=== PATIENT | male | born 1945 | race Caucasian/White ===

== ENCOUNTER 2016-12-02 09:30 | Inpatient (IN) | payer OTHER, MEDICARE ==
[2016-12-02] MEDS ORDERED: ACETAMINOPHEN TAB 500 MG TAB PO STA (09:42)
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
[2016-12-02 10:07] LABS: CH 29.6; CHCM 33.4; HCT 51.1 % (39.0-53.0); HDW 2.73; HGB 16.7 gm/dL (13.0-17.5); Immature Gran Flag Marked; MCH 29.2 pg (25.0-35.0); MCHC 32.8 g/dL (31.0-37.0); MCV 89.1 fL (80.0-100.0); Mean Platelet Volume 8.8; RBC 5.73 m/uL (4.30-5.90); RDW 14.2 % (11.5-15.5); WBC 8.9 k/uL (3.8-10.6)
[2016-12-02 10:19] LABS: Amylase 52 U/L (30-110); Anion Gap 13 mmol/L; Calcium 9.2 mg/dL (8.4-10.2); Carbon Dioxide 24 mmol/L (22-30); Chloride 106 mmol/L (98-107); Creatine Kinase 143 U/L (55-170); Glucose 139 mg/dL (74-99); Non-African American GFR(MDRD) >60 (>60 ml/min/1.73 sqM); Sodium 143 mmol/L (137-145); Total Bilirubin 0.9 mg/dL (0.2-1.3); Total Protein 7.7 g/dL (6.3-8.2)
[2016-12-02 10:24] LABS: ALT 25 U/L (21-72); AST 32 U/L (17-59); Alkaline Phosphatase 102 U/L (38-126); Blood Urea Nitrogen 14 mg/dL (9-20); INR 1.1 (<1.1); Magnesium 1.8 mg/dL (1.6-2.3); Partial Thromboplastin Time 22.7 sec (22.0-30.0); Potassium 4.6 mmol/L (3.5-5.1)
--- NOTE | 2016-12-02 10:25 | XR ---
EXAMINATION TYPE: XR chest 2V DATE OF EXAM: 12/02/2016 10:21 AM COMPARISON: 08/01/2016 TECHNIQUE: PA and lateral views submitted. HISTORY: Pain and cough FINDINGS: No pneumothorax or pleural effusion. Arthropathy of the shoulder. Heart size stable. There is limited inspiration. Findings suggest hiatal hernia. Degenerative change of the spine noted. Subsegmental ba silar infiltrate. IMPRESSION: 1. Basilar infiltrate or atelectasis correlate clinically.
[2016-12-02 10:42] LABS: Add Differential Manual Differential
[2016-12-02 10:45] LABS: Appearance,Urine Clear (Clear); Bilirubin,Urine Negative (Negative); Glucose,Urine (UA) Negative (Negative); Ketones,Urine Negative (Negative); Leukocyte Esterase,Urine Negative (Negative); Nitrite,Urine Negative (Negative); PH, Urine 7.5 (5.0-8.0); Protein,Urine Negative (Negative); UA Billing (MACRO vs. MICRO) CHEM; Urobilinogen,Urine <2.0 mg/dL (<2.0)
[2016-12-02 10:47] LABS: Nucleated Red Blood Cells 0 /100 WBC (0-0); Total Cells Counted 200
[2016-12-02 10:48] LABS: Manual Review Performed
[2016-12-02] MEDS ORDERED: IBUPROFEN 800 MG TAB PO STA (10:50)
[2016-12-02] MEDS ORDERED: SODIUM CHLORIDE 0.9% 1,000 ML IV ONE (11:08)
[2016-12-02] MEDS ORDERED: PNEUMONIA PROTOCOL UTILIZED 1 EACH MISC PO PRN (11:10)
[2016-12-02] MEDS ORDERED: LEVOFLOXACIN 750MG-D5W PMX 750 MG in DEXTROSE/WATER 1 150ML.BAG IVPB STA (11:10)
[2016-12-02] MEDS ORDERED: IPRATROPIUM-ALBUTEROL 3 ML NEB INHALATION PRN (11:10)
[2016-12-02] MEDS ORDERED: ACETAMINOPHEN TAB 500 MG TAB PO PRN (11:11)
[2016-12-02] MEDS ORDERED: HYDROcodone/APAP 5-325MG 1 EACH TAB PO PRN (14:05)
[2016-12-02] MEDS ORDERED: TEMAZEPAM 15 MG CAP PO PRN (14:05)
[2016-12-02] MEDS ORDERED: ALPRAZolam 0.25 MG TAB PO PRN (14:05)
[2016-12-02] MEDS ORDERED: NITROGLYCERIN SL TABS 0.4 MG TAB SUBLINGUAL PRN (14:06)
[2016-12-02] MEDS ORDERED: HYDROCORTISONE 1% CREAM 30 GM TUBE TOPICAL PRN (14:06)
[2016-12-02] MEDS ORDERED: ACYCLOVIR 200 MG CAP PO PRN (14:06)
[2016-12-02] MEDS ORDERED: NON-FORMULARY DRUG (Omeprazole [Omeprazole] 20 MG) PO SCH (14:15)
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
[2016-12-02] MEDS: AZITHROMYCIN 500 MG in SODIUM CHLORIDE 0.9% 250 ML IVPB SCH (15:27)
[2016-12-02] MEDS: methylPREDNISolone SOD SUCCI 40 MG/ML 1 ML VIAL IV SCH (15:27)
[2016-12-02] MEDS: POLYETHYLENE GLYCOL 3350 17 GM POWD.PACK PO SCH (15:28)
[2016-12-02] MEDS: FINASTERIDE 5 MG TAB PO SCH (15:28)
[2016-12-02] MEDS: CITALOPRAM HYDROBROMIDE 10 MG TAB PO SCH (15:28)
[2016-12-02] MEDS: CLOPIDOGREL 75 MG TAB PO SCH (15:28)
[2016-12-02] MEDS: LISINOPRIL-HCTZ 10-12.5 MG 1 EACH TAB PO SCH (15:28)
[2016-12-02] MEDS: IPRATROPIUM-ALBUTEROL 3 ML NEB INHALATION SCH ×2 (15:49→20:31)
[2016-12-02 16:55] VITALS: BMI 58.6
[2016-12-02 17:37] LABS: Glucose,Whole Blood 193 mg/dL (75-99)
[2016-12-02] MEDS: INSULIN LISPRO (humaLOG) 300 UNIT/3 ML VIAL SQ SCH ×2 (17:37→21:07)
[2016-12-02 20:11] LABS: Glucose,Whole Blood 276 mg/dL (75-99)
[2016-12-02] MEDS: HEPARIN SODIUM,PORCINE 5,000 UNIT/ML 1 ML VIAL SQ SCH (21:07)
[2016-12-02] MEDS: QUEtiapine 50 MG TAB PO SCH (21:09)
[2016-12-02] MEDS: traZODone HCL 50 MG TAB PO SCH (21:09)
[2016-12-02] MEDS: METOPROLOL TARTRATE 12.5 MG TAB PO SCH (21:09)
[2016-12-03] MEDS: SODIUM CHLORIDE 0.9% 1,000 ML IV SCH ×2 (05:30→05:51)
[2016-12-03] MEDS: LEVOTHYROXINE 25 MCG TAB PO SCH (06:13)
--- NOTE | 2016-12-03 06:48 | XR ---
EXAM: XR Chest, 2 Views. CLINICAL HISTORY: Reason: pneumonia TECHNIQUE: Frontal and lateral views of the chest. COMPARISON: 12/02/16 radiographs. FINDINGS: Lungs: Increasing bibasilar opacities, left greater than right, may be worsening atelectasis or infiltrates. Pleural spaces: Unremarkable. No pneumothorax. Heart: The heart size is stable. Mediastinum: Stable including slight rounded density in the retrocardiac region for which a small hiatal hernia is not excluded. Bones: Stable including multilevel degenerative changes. No acute fracture. IMPRESSION: Increasing bibasilar atelectasis or infiltrates. The balance of the exam is otherwise unchanged, as above.
[2016-12-03 07:25] LABS: Basophils % (A) 0 %; CH 29.7; CHCM 33.1; Eosinophils % (A) 0 %; HCT 48.2 % (39.0-53.0); HDW 2.64; HGB 15.3 gm/dL (13.0-17.5); Luc # (Auto) 0.11; Luc % (Auto) 1; Lymphocytes # (A) 0.8 k/uL (1.0-4.8); Lymphocytes % (A) 6 %; MCH 28.7 pg (25.0-35.0); MCHC 31.8 g/dL (31.0-37.0); MCV 90.1 fL (80.0-100.0); Mean Platelet Volume 7.8; Monocytes # (A) 0.5 k/uL (0-1.0); Monocytes % (A) 4 %; Neutrophils # (A) 11.8 k/uL (1.3-7.7); Neutrophils % (A) 89 %; RBC 5.35 m/uL (4.30-5.90); RDW 14.3 % (11.5-15.5); WBC 13.3 k/uL (3.8-10.6); WBC (Perox) 13.26
[2016-12-03 07:26] LABS: Glucose,Whole Blood 151 mg/dL (75-99)
[2016-12-03] MEDS: INSULIN LISPRO (humaLOG) 300 UNIT/3 ML VIAL SQ SCH ×4 (07:33→21:18)
[2016-12-03 07:47] LABS: Anion Gap 11 mmol/L; Blood Urea Nitrogen 21 mg/dL (9-20); Calcium 9.3 mg/dL (8.4-10.2); Carbon Dioxide 22 mmol/L (22-30); Chloride 107 mmol/L (98-107); Glucose 180 mg/dL (74-99); Non-African American GFR(MDRD) >60 (>60 ml/min/1.73 sqM); Potassium 4.1 mmol/L (3.5-5.1); Sodium 140 mmol/L (137-145)
[2016-12-03] MEDS: IPRATROPIUM-ALBUTEROL 3 ML NEB INHALATION SCH ×4 (07:55→20:08)
[2016-12-03] MEDS: CITALOPRAM HYDROBROMIDE 10 MG TAB PO SCH (08:30)
[2016-12-03] MEDS: LISINOPRIL-HCTZ 10-12.5 MG 1 EACH TAB PO SCH (08:30)
[2016-12-03] MEDS: PANTOPRAZOLE 40 MG TABLET PO SCH (08:30)
[2016-12-03] MEDS: METOPROLOL TARTRATE 12.5 MG TAB PO SCH ×2 (08:30→20:07)
[2016-12-03] MEDS: ASPIRIN 325 MG TAB PO SCH (08:30)
[2016-12-03] MEDS: FINASTERIDE 5 MG TAB PO SCH (08:30)
[2016-12-03] MEDS: CLOPIDOGREL 75 MG TAB PO SCH (08:30)
[2016-12-03] MEDS: methylPREDNISolone SOD SUCCI 40 MG/ML 1 ML VIAL IV SCH ×2 (08:31)
[2016-12-03] MEDS: POLYETHYLENE GLYCOL 3350 17 GM POWD.PACK PO SCH (08:31)
[2016-12-03] MEDS: HEPARIN SODIUM,PORCINE 5,000 UNIT/ML 1 ML VIAL SQ SCH ×2 (08:31→20:08)
[2016-12-03] MEDS ORDERED: NON-FORMULARY DRUG (Rosuvastatin 10 MG) PO SCH (09:00)
[2016-12-03] MEDS: AZITHROMYCIN 500 MG in SODIUM CHLORIDE 0.9% 250 ML IVPB SCH (10:08)
[2016-12-03 10:43] LABS: Hemoglobin A1C 6.4 % (4.2-6.1)
[2016-12-03 11:23] LABS: Glucose,Whole Blood 351 mg/dL (75-99)
[2016-12-03] MEDS ORDERED: LEVOFLOXACIN 750MG-D5W PMX 750 MG in DEXTROSE/WATER 1 150ML.BAG IVPB SCH (12:00)
[2016-12-03] MEDS: CYANOCOBALAMIN 500 MCG TAB PO SCH (12:19)
[2016-12-03 12:37] LABS: Glucose,Whole Blood 276 mg/dL (75-99)
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
--- NOTE | 2016-12-03 16:42 | PN ---
DATE OF SERVICE: 12/03/2016 This 71-year-old gentleman admitted with cough and sputum, was thought to have bilateral pneumonia, possibly gram-negative. The chest x-ray still shows lesions bilaterally. Dr. Swenson is following the patient closely. The patient is on IV antibiotics and as well as bronchodilators, also. PAST MEDICA HISTORY: Reviewed. REVIEW OF SYSTEMS: CARDIOVASCULAR: No angina, palpitations. RESPIRATORY: As mentioned earlier. GI: No nausea. : No dysuria. NERVOUS SYSTEM: No numbness or weakness. ALLERGY/IMMUNOLOGY: No hayfever, no asthma. MUSCULOSKELETAL: As mentioned earlier. Current medications are noted: 1. Tylenol 1000 mg q.6 p.r.n. 2. [place] 5 mg q.6. 3. Zovirax 200 mg p.o. 5 times. 4. DuoNeb q.i.d. and p.r.n. 5. Xanax 0.25 t.i.d. 6. Aspirin 325 mg p.o. daily. 7. Zithromax 500 mg p.o. daily. 8. Rocephin 1 gm daily. 9. Celexa 10 mg p.o. daily. 10. Plavix 75 mg p.o. daily. 11. Vitamin B12 two hundred fifty mcg p.o. daily. 12. Proscar 5 mg p.o. daily. 13. Lisinopril-hydrochlorothiazide 1 tablet p.o. daily. 14. Heparin 5000 subQ b.i.d. 15. Hydrocortisone 1% daily p.r.n. 16. NovoLog scale. 17. Synthroid 25 mcg p.o. daily. 18. Lopressor 12.5 mg p.o. b.i.d. 19. Nitrostat 0.4 sublingual p.r.n. 20. Crestor 10 mg p.o. daily. 21. Protonix 40 mg p.o. daily. 22. MiraLax 17 gm p.o. daily. 23. Seroquel 150 mg q.h.s. 24. Desyrel 50 mg q.h.s. PHYSICAL EXAM: Patient is alert and oriented x3. Pulse is 76, blood pressure 120/68, respiratory rate 18, temperature 97.8, pulse ox 98% on room air. HEENT: Conjunctivae normal, oral mucosal moist. Neck is no jugular venous distension, no thyroid enlargement, no lymph node no enlargement. CARDIOVASCULAR: S1, S2, muffled. RESPIRATORY: Breast sounds diminished at the bases, a few scattered rhonchi, no crackles. Respiratory wheezing also present. Abdomen is soft, nontender. EXTREMITIES: Legs no edema, no well. NERVOUS SYSTEM: No focal deficits. LABS: WBC 13.3 and glucose 180 and 351. ASSESSMENT: 1. Chronic obstructive pulmonary disease, acute exacerbation, with possible bibasilar pneumonia, possibly gram-negative with possible sepsis, present on admission. 2. Rule out smoke inhalation. 3. Increased random blood sugar and diabetes mellitus type 2, possibly steroid induced. 4. History of coronary artery disease. 5. History of gastroesophageal reflux disease. 6. Hypertension. 7. Hyperlipidemia. 8. History of myocardial infarction. 9. History of diverticulosis. 10. History of aortic aneurysm. 11. History of right clavicle fracture. 12. History of constipation. 13. History of anxiety, depression, posttraumatic stress disorder. 14. Remote history of nicotine dependence. 15. FULL CODE. RECOMMENDATION: This is a 71-year-old gentleman who presented with multiple complex medical issues, will monitor the patient closely. Continue with the current medication. Continue with the symptomatic treatment. Otherwise, at this time I would recommend continue the bronchodilators, empiric antibiotics, Rocephin and Zithromax. Dr. Swenson's input appreciated. Will also recommend to cut down the IV fluids and further recommendations to follow.
[2016-12-03 17:11] LABS: Glucose,Whole Blood 221 mg/dL (75-99)
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
[2016-12-03] MEDS ORDERED: LEVOFLOXACIN 500 MG TAB PO SCH (20:00)
[2016-12-03] MEDS: QUEtiapine 50 MG TAB PO SCH (20:08)
[2016-12-03] MEDS: traZODone HCL 50 MG TAB PO SCH (20:08)
[2016-12-03 20:15] LABS: Glucose,Whole Blood 296 mg/dL (75-99)
[2016-12-04 00:25] VITALS: RESP 16
[2016-12-04] MEDS: LEVOTHYROXINE 25 MCG TAB PO SCH (06:27)
[2016-12-04 07:27] LABS: Glucose,Whole Blood 146 mg/dL (75-99)
[2016-12-04] MEDS: HEPARIN SODIUM,PORCINE 5,000 UNIT/ML 1 ML VIAL SQ SCH (07:41)
[2016-12-04] MEDS: POLYETHYLENE GLYCOL 3350 17 GM POWD.PACK PO SCH (07:41)
[2016-12-04] MEDS: CITALOPRAM HYDROBROMIDE 10 MG TAB PO SCH (07:41)
[2016-12-04] MEDS: METOPROLOL TARTRATE 12.5 MG TAB PO SCH (07:41)
[2016-12-04] MEDS: LISINOPRIL-HCTZ 10-12.5 MG 1 EACH TAB PO SCH (07:41)
[2016-12-04] MEDS: FINASTERIDE 5 MG TAB PO SCH (07:42)
[2016-12-04] MEDS: CLOPIDOGREL 75 MG TAB PO SCH (07:42)
[2016-12-04] MEDS: ASPIRIN 325 MG TAB PO SCH (07:42)
[2016-12-04] MEDS: CYANOCOBALAMIN 500 MCG TAB PO SCH (07:42)
[2016-12-04] MEDS: PANTOPRAZOLE 40 MG TABLET PO SCH (07:42)
[2016-12-04] MEDS: INSULIN LISPRO (humaLOG) 300 UNIT/3 ML VIAL SQ SCH (07:43)
[2016-12-04 07:46] VITALS: BP 135/87; PULSE 63; TEMP 98.1
[2016-12-04] MEDS: IPRATROPIUM-ALBUTEROL 3 ML NEB INHALATION SCH ×3 (07:57→11:31)
[2016-12-04 08:10] LABS: Basophils % (A) 0 %; CH 29.7; CHCM 33.2; Eosinophils % (A) 0 %; HCT 45.5 % (39.0-53.0); HDW 2.67; HGB 14.6 gm/dL (13.0-17.5); Luc # (Auto) 0.25; Luc % (Auto) 2; Lymphocytes # (A) 1.3 k/uL (1.0-4.8); Lymphocytes % (A) 10 %; MCHC 32.2 g/dL (31.0-37.0); MCV 90.1 fL (80.0-100.0); Mean Platelet Volume 7.9; Monocytes # (A) 0.7 k/uL (0-1.0); Monocytes % (A) 6 %; Neutrophils # (A) 10.3 k/uL (1.3-7.7); Neutrophils % (A) 82 %; RBC 5.04 m/uL (4.30-5.90); RDW 14.5 % (11.5-15.5); WBC 12.6 k/uL (3.8-10.6); WBC (Perox) 13.03
[2016-12-04 08:27] LABS: Anion Gap 10 mmol/L; Blood Urea Nitrogen 21 mg/dL (9-20); Calcium 9.2 mg/dL (8.4-10.2); Carbon Dioxide 25 mmol/L (22-30); Chloride 108 mmol/L (98-107); Glucose 148 mg/dL (74-99); Non-African American GFR(MDRD) >60 (>60 ml/min/1.73 sqM); Potassium 4.2 mmol/L (3.5-5.1); Sodium 143 mmol/L (137-145)
[2016-12-04] MEDS ORDERED: predniSONE 10 MG TAB PO SCH (09:00)
[2016-12-04] MEDS ORDERED: AZITHROMYCIN 500 MG TAB PO SCH (09:00)
--- NOTE | 2016-12-04 12:06 | P.PN ---
Subjective Rich 71-year-old male patient, pleasant to presented with bilateral lower lobe pneumonia. He is a nonsmoker. No 72 chronic form of lung disease or disorder. Clinically improved. No fever. No chills. No need for oxygen therapy. He is ambulating. He is tolerating his diet without any nausea or vomiting. His follow-up chest x-ray is showing some limited infiltration of the left lung base that needs to be followed up on outpatient basis with pulmonary. His primary care physician is Jennifer Gunn at the [facility]. Objective - Vital Signs Vital signs: Vital Signs Temp 98.1 F 12/04/16 07:00 Pulse 63 12/04/16 08:00 Resp 16 12/04/16 08:00 BP 135/87 12/04/16 07:00 Pulse Ox 94 L 12/04/16 08:00 Intake & Output 12/03/16 12/04/16 12/04/16 18:59 06:59 18:59 Intake Total 525 2150 Balance 525 2150 Weight 86.2 kg 86.2 kg Intake: Intake, IV Titration 525 600 Amount Sodium Chloride 0.9% 1, 525 600 000 ml @ 75 mls/hr IV . [id number] DEIDRE Rx#:[id number] Oral 1550 Other: # Voids 1 1 - Exam The patient appeared well nourished and normally developed. Vital signs as documented. Head exam is unremarkable. No scleral icterus or corneal arcus noted. Neck is without jugular venous distension, thyromegaly, or carotid bruits. Carotid upstrokes are brisk bilaterally. Lungs are clear to auscultation and percussion. Cardiac exam reveals the PMI to be normally sized and situated. Rhythm is regular. First and second heart sounds normal. No murmurs, rubs or gallops. Abdominal exam reveals normal bowel sounds, no masses , no organomegaly and no aortic enlargement. Extremities are nonedematous and both femoral and pedal pulses are normal. - Labs CBC & Chem 7: 12/04/16 07:20 12/04/16 07:20 Labs: Abnormal Lab Results - Last 24 Hours (Table) 12/03/16 12/03/16 12/03/16 Range/Units 12:34 17:08 20:14 WBC (3.8-10.6) k/uL Neutrophils # (1.3-7.7) k/uL Chloride (98-107) mmol/L BUN (9-20) mg/dL Glucose (74-99) mg/dL POC Glucose (mg/dL) 276 H 221 H 296 H (75-99) mg/dL 12/04/16 12/04/16 12/04/16 Range/Units 07:19 07:20 07:20 WBC 12.6 H (3.8-10.6) k/uL Neutrophils # 10.3 H (1.3-7.7) k/uL Chloride 108 H (98-107) mmol/L BUN 21 H (9-20) mg/dL Glucose 148 H (74-99) mg/dL POC Glucose (mg/dL) 146 H (75-99) mg/dL Microbiology - Last 24 Hours (Table) 12/03/16 12:21 Gram Stain - Preliminary Sputum Assessment and Plan Plan: Assessment 1 bilateral lower lobe pneumonia with some minimal residual infiltration based on the follow-up chest x-ray. Clinically however the patient is doing extremely well and he is good for discharge from the pulmonary standpoint. 2 coronary artery disease with previous coronary intervention and stenting last one being in July 2016 3 hypertension 4 hyperlipidemia 5 hypothyroidism 6 GE reflux Plan The patient can be discharged home on Levaquin to complete a 7 day course. The patient will be following up with the pulmonary clinic for repeat chest x-ray to make sure the infiltrates have completely recovered. He'll be also given a short course of a prednisone burst taper. Follow-up with Dr. Simpson and the [place] [facility] in detail.
--- NOTE | 2016-12-05 10:43 | DS ---
DATE OF ADMISSION: 12/02/2016 DATE OF DISCHARGE: 12/04/2016 FINAL DIAGNOSES: 1. Chronic obstructive pulmonary disease acute exacerbation with possible bibasilar pneumonia, possibly gram-negative with possible sepsis, present on admission. 2. Increased random blood sugar and diabetes mellitus type 2. Possible steroid induced. 3. History of coronary artery disease. 4. History of gastroesophageal reflux disease. 5. Hypertension. 6. Hyperlipidemia. 7. History of myocardial infarction. 8. History of diverticulosis. 9. History of aortic aneurysm. 10. History of right clavicle fracture. 11. History of constipation. 12. History of anxiety, depression and posttraumatic stress disorder. 13. Remote history of nicotine dependence. 14. FULL CODE. DISCHARGE DISPOSITION: The patient will be discharged in a stable with guarded prognosis. Discharge cleared by Dr. Cheng. HISTORY OF PRESENT ILLNESS: This 71-year-old gentleman with a past medical history of multiple medical problems was admitted with COPD acute exacerbation as well as bibasilar pneumonia. The patient was monitored closely. Patient improved significantly. Antibiotics were given. Patient is keen on going home at this time. On exam, vitals are stable. CARDIOVASCULAR SYSTEM: S1, S2 muffled. RESPIRATORY: Few rhonchi. ABDOMEN: Soft. Nervous system: No focal deficits. Patient will be discharged in stable condition with guarded prognosis with the following advice and medications: 1. Diet is cardiac. 2. Activity limited until follow-up. 3. Follow up with Dr. Swenson as advised. 4. Follow up with Dr. Moore 2 to 3 days. 5. Medications will be Xanax 0.5 daily. 6. Tylenol 1000 mg q.6 p.r.n. 7. Zovirax 2 mg five times. 8. Ventolin HFA 2 puffs q.i.d. 9. Aspirin 320 mg p.o. daily. 10. Celexa 10 mg p.o. q.h.s. 11. Plavix 75 milligrams p.o. daily. 12. Vitamin B12 50 mcg p.o. daily. 13. Proscar 5 mg p.o. daily. 14. Hydrocortisone local application as before. 15. Levaquin 500 mg daily for 7 days. 16. Levothyroxine 25 mcg p.o. daily. 17. Lisinopril 10/12.5 mg p.o. daily. 18. Lopressor 12.5 mg b.i.d. 19. Nitrostat 0.4 sublingual p.r.n. 20. Omeprazole 20 mg p.o. daily. 21. MiraLax 17 grams daily. 22. Seroquel 150 mg p.o. q.h.s. 23. Crestor 10 mg p.o. q.h.s. 24. Prednisone taper that is 40 mg daily for 3 days, 30 for 3 days, 20 for 3 days, 10 for 3 days and then stop. 25. Trazodone 50 mg p.o. q.h.s.
[2016-12-08 09:51] LABS: Mycoplasma IgG Antibody (EIA) 1.97 INDEX (<=0.90); Mycoplasma IgM Antibody 0.08 INDEX (<=0.90)
== END 2016-12-04 12:25 | disposition home or self-care (01) | DRG 871 ==
LOC: EC 09:30 → 5MS5E 11:10
PROVIDERS: ADMIT Hospitalist; ATTEND Hospitalist
DX: A41.9 Sepsis, unspecified organism (principal); J15.6 Pneumonia due to other Gram-negative bacteria; J44.0 Chronic obstructive pulmonary disease with (acute) lower respiratory infection; J44.1 Chronic obstructive pulmonary disease with (acute) exacerbation; J70.5 Respiratory conditions due to smoke inhalation; I10 Essential (primary) hypertension; E03.9 Hypothyroidism, unspecified; E11.9 Type 2 diabetes mellitus without complications; E78.5 Hyperlipidemia, unspecified; F43.10 Post-traumatic stress disorder, unspecified; I25.10 Atherosclerotic heart disease of native coronary artery without angina pectoris; I25.2 Old myocardial infarction; K21.9 Gastro-esophageal reflux disease without esophagitis; F32.9 Major depressive disorder, single episode, unspecified; F41.9 Anxiety disorder, unspecified; I71.4 Abdominal aortic aneurysm, without rupture; I83.90 Asymptomatic varicose veins of unspecified lower extremity; K57.90 Diverticulosis of intestine, part unspecified, without perforation or abscess without bleeding; K59.00 Constipation, unspecified; H57.8 Other specified disorders of eye and adnexa; T38.0X5A Adverse effect of glucocorticoids and synthetic analogues, initial encounter; Z79.02 Long term (current) use of antithrombotics/antiplatelets; Z79.82 Long term (current) use of aspirin; Z79.899 Other long term (current) drug therapy; Z87.891 Personal history of nicotine dependence; Z95.5 Presence of coronary angioplasty implant and graft; Z88.8 Allergy status to other drugs, medicaments and biological substances
CPT/HCPCS: 36415; 71020; 80048; 80053; 81003; 82150; 82550; 83036; 83605; 83690; 83735; 83880; 84484; 85025; 85610; 85730; 86738; 87040; 87070; 87086; 87205; 87449; 87502; 93005; 94640; 94760; 96365; 99285

== ENCOUNTER 2018-10-28 17:29 | Observation (INO) | payer OTHER, MEDICARE ==
[2018-10-28] MEDS ORDERED: SODIUM CHLORIDE 0.9% 1,000 ML IV STA (17:54)
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
[2018-10-28 18:09] LABS: Basophils # (A) 0.1 k/uL (0-0.2); Basophils % (A) 1 %; Eosinophils # (A) 0.2 k/uL (0-0.7); Eosinophils % (A) 3 %; HCT 46.6 % (39.0-53.0); HGB 15.4 gm/dL (13.0-17.5); Lymphocytes # (A) 1.6 k/uL (1.0-4.8); Lymphocytes % (A) 26 %; MCH 28.5 pg (25.0-35.0); MCV 86.4 fL (80.0-100.0); Mean Platelet Volume 7.6; Monocytes # (A) 0.4 k/uL (0-1.0); Monocytes % (A) 6 %; Neutrophils # (A) 3.8 k/uL (1.3-7.7); Neutrophils % (A) 63 %; Platelet Count 309 k/uL (150-450); RBC 5.39 m/uL (4.30-5.90); RDW 14.7 % (11.5-15.5)
[2018-10-28 18:20] LABS: Calcium 9.4 mg/dL (8.4-10.2); Potassium 4.2 mmol/L (3.5-5.1); Total Bilirubin 0.5 mg/dL (0.2-1.3); Total Protein 6.9 g/dL (6.3-8.2)
[2018-10-28 18:23] LABS: Creatine Kinase 164 U/L (55-170)
[2018-10-28 18:28] LABS: Prothrombin Time 10.4 sec (9.0-12.0)
[2018-10-28 18:33] LABS: Partial Thromboplastin Time 21.2 sec (22.0-30.0)
[2018-10-28 18:36] LABS: Creatine Kinase MB 1.9 ng/mL (0.0-2.4); Troponin I <0.012 ng/mL (0.000-0.034)
--- NOTE | 2018-10-28 19:23 | XR ---
EXAMINATION TYPE: XR chest 2V DATE OF EXAM: 10/28/2018 COMPARISON: Chest x-ray December 03, 2016 HISTORY: History of coronary artery disease with chest pain TECHNIQUE: Frontal and lateral views of the chest are obtained. FINDINGS: There is chronic parenchymal change without suspicious new focal air space opacity, pleura l effusion, or pneumothorax seen. Low lung volumes are redemonstrated. The cardiac silhouette size i s stable and upper limits of normal with atherosclerotic and ectatic thoracic aorta redemonstrated. The osseous structures are intact. IMPRESSION: Chronic changes without acute pulmonary process on current study.
--- NOTE | 2018-10-28 20:00 | CT ---
EXAMINATION TYPE: CT angio thor/abd pel aorta DATE OF EXAM: 10/28/2018 COMPARISON: None. HISTORY: chest pain. Hx HTN, CAD CT DLP: 1425.8 mGycm. Automated Exposure Control for Dose Reduction was Utilized. CONTRAST: CTA scan of the thorax, abdomen and pelvis is performed without and with IV Contrast, patient injecte d with 100 mL of Isovue 300. Aneurysm protocol with 3-D reconstruction images created on an [employer] workstation and reviewed. FINDINGS: VASCULAR: Central pulmonary arteries show no suspicious filling defect. Ascending aorta measures up t o 4.0 cm in diameter at the level of pulmonary artery bifurcation axial image 32. There is normal 3 v essel origin from aortic arch. Mild to moderate anterior noncalcified plaque in the right brachioceph alic artery is seen. No significant focal stenosis is present. There is mild to moderate noncalcified plaque in the descending thoracic aorta. There is patent celiac artery, SMA, bilateral single renal arteries, and JOHN with mild to moderate calcified plaque most prominent infrarenal segment, no signif icant stenosis is present. There is ectatic course distally measuring up to 2.8 cm in AP diameter axi al image 124. No greater than 3 cm aneurysmal change is seen. There is moderate calcified plaque into the common iliac arteries without significant stenosis. There is mild to moderate plaque in the inte rnal/external iliac arteries without significant stenosis. Mild to moderate plaque, and femoral arter y is seen bilaterally without significant stenosis, branching into superficial and deep femoral arter ies is noted. No linear hypodensity to suggest dissection is present. LUNGS: Posterior bibasilar linear scarring and atelectasis is present. No suspicious pulmonary nodu les or masses are identified. There is no pleural effusion or pneumothorax seen. The tracheobronchia l tree is patent. MEDIASTINUM: There are no greater than 1 cm hilar or mediastinal lymph nodes. No pericardial effusi on is seen. Cardiomegaly with [id number] left ventricular dilatation is noted. There is severe three-vessel coronary artery calcification and/or stents. Correlate clinically. There is posterior r ight thyroid extension with calcification axial image 6 adjacent to esophagus, possible calcified nod ule. OTHER: No additional significant abnormality is seen. LIVER/GB: Dependent gallstones in the gallbladder are seen. There is 1.3 cm thin-walled cyst right he patic lobe posteriorly axial image 55 PANCREAS: No significant abnormality is seen. SPLEEN: No significant abnormality is seen. ADRENALS: No significant abnormality is seen. KIDNEYS: A few simple appearing cysts scattered throughout the right kidney are noted BOWEL: Moderate size hiatal hernia is present. No suspicious small or large bowel dilatation is seen diverticulosis throughout the colon are identified most prominent in the sigmoid colon without convin cing CT evidence for acute diverticulitis. Normal-appearing appendix is seen from base of cecum. GENITAL ORGANS: Prostate gland is mildly enlarged in size bulging on bladder base consistent with BPH , correlate clinically. Adjacent pelvic phleboliths are noted. LYMPH NODES: No greater than 1cm abdominal or pelvic lymph nodes are appreciated. OSSEOUS STRUCTURES: Moderate disc space narrowing with active disc phenomenon L5-S1 level is seen. Th ere is mild disc space narrowing with vacuum disc phenomenon in the mid to lower thoracic spine. Mode rate narrowing bilateral hip joints is present. OTHER: No significant additional abnormality is seen. IMPRESSION: 1. Some ectasia of the infrarenal abdominal aorta. No greater than 3 cm aneurysm. No thoracic dissect ion. Mild ascending aortic aneurysm of 4.0 cm. 2. Severe three-vessel coronary artery calcification and/or stents. Correlate clinically. Cardiomegal y with mild to moderate left ventricular dilatation noted. No suspicious acute pulmonary process.
[2018-10-28] MEDS ORDERED: NITROGLYCERIN SL TABS 0.4 MG TAB SUBLINGUAL PRN (20:04)
[2018-10-28] MEDS ORDERED: HEPARIN SODIUM,PORCINE 5,000 UNIT/ML 1 ML VIAL IV ONE (20:38)
[2018-10-28] MEDS ORDERED: HEPARIN SODIUM,PORCINE 5,000 UNIT/ML 1 ML VIAL IV PRN (20:38)
[2018-10-28] MEDS ORDERED: HEPARIN SOD,PORK IN 0.45% NACL 25,000 UNIT in 0.45% NACL 1 250ML.BAG IV SCH (20:45)
[2018-10-28] MEDS: SODIUM CHLORIDE 0.9% 1,000 ML IV SCH (20:56)
[2018-10-28 22:05] VITALS: BMI 26.6
[2018-10-28] MEDS ORDERED: ACYCLOVIR 200 MG CAP PO PRN (22:16)
[2018-10-28] MEDS ORDERED: ALPRAZolam 0.5 MG TAB PO PRN (22:16)
[2018-10-28] MEDS ORDERED: traZODone HCL 50 MG TAB PO PRN (22:16)
[2018-10-28] MEDS ORDERED: QUEtiapine 50 MG TAB PO SCH (22:30)
[2018-10-28] MEDS: PANTOPRAZOLE 40 MG TABLET PO SCH (22:50)
[2018-10-28] MEDS: METOPROLOL TARTRATE 12.5 MG TAB PO SCH (22:50)
[2018-10-29 00:10] LABS: Creatine Kinase 138 U/L (55-170)
[2018-10-29 00:23] LABS: Creatine Kinase MB 1.8 ng/mL (0.0-2.4); Troponin I <0.012 ng/mL (0.000-0.034)
[2018-10-29 05:52] LABS: Basophils # (A) 0.1 k/uL (0-0.2); Basophils % (A) 1 %; Eosinophils # (A) 0.2 k/uL (0-0.7); Eosinophils % (A) 3 %; HCT 48.3 % (39.0-53.0); HGB 15.3 gm/dL (13.0-17.5); Lymphocytes # (A) 2.1 k/uL (1.0-4.8); Lymphocytes % (A) 35 %; MCH 27.7 pg (25.0-35.0); MCHC 31.7 g/dL (31.0-37.0); MCV 87.4 fL (80.0-100.0); Mean Platelet Volume 7.2; Monocytes # (A) 0.4 k/uL (0-1.0); Monocytes % (A) 7 %; Neutrophils # (A) 3.1 k/uL (1.3-7.7); Neutrophils % (A) 51 %; Platelet Count 319 k/uL (150-450); RBC 5.52 m/uL (4.30-5.90); RDW 14.8 % (11.5-15.5)
[2018-10-29 06:03] LABS: Cholesterol 157 mg/dL (<200); HDL Cholesterol 47 mg/dL (40-60); LDL Cholesterol,Calculated 73 mg/dL (0-99); Triglycerides 185 mg/dL (<150)
[2018-10-29 06:16] LABS: Creatine Kinase 131 U/L (55-170)
[2018-10-29 06:28] LABS: Creatine Kinase MB 1.8 ng/mL (0.0-2.4); Troponin I <0.012 ng/mL (0.000-0.034)
[2018-10-29] MEDS ORDERED: ASPIRIN 325 MG TAB PO SCH (09:00)
[2018-10-29] MEDS ORDERED: SODIUM CHLORIDE 0.9% 1,000 ML in EMPTY BAG 1 BAG IV ONE (10:30)
[2018-10-29] MEDS: METOPROLOL TARTRATE 12.5 MG TAB PO SCH (11:11)
[2018-10-29] MEDS: PANTOPRAZOLE 40 MG TABLET PO SCH (11:11)
[2018-10-29] MEDS: SODIUM CHLORIDE 0.9% 1,000 ML IV SCH (11:11)
--- NOTE | 2018-10-29 11:42 | ECHOF ---
Referral Reason: MEASUREMENTS -------- HEIGHT: 180.3 cm WEIGHT: 81.6 kg BP: IVSd: 1.8 cm (0.6 - 1.1) LVIDd: 5.3 cm (3.9 - 5.3) LVPWd: 1.7 cm (0.6 - 1.1) IVSs: 2.1 cm LVIDs: 4.2 cm LVPWs: 1.9 cm LAESV Index (A-L): 23.92 ml/m Ao Diam: 3.1 cm (2.0 - 3.7) AV Cusp: 2.2 cm (1.5 - 2.6) LA Diam: 2.6 cm (2.7 - 3.8) MV EXCURSION: 21.171 mm (> 18.000) MV EF SLOPE: 60 mm/s (70 - 150) EPSS: 1.4 cm MV E Kermit: 0.50 m/s MV DecT: 220 ms MV A Kermit: 0.75 m/s MV E/A Ratio: 0.67 AR PHT: 1103 ms RAP: 15.00 mmHg RVSP: 26.07 mmHg FINDINGS -------- Sinus rhythm. This was a technically good study. The left ventricular size is normal. There is moderate concentric left ventricular hypertrophy. O verall left ventricular systolic function is mild-moderately impaired with, an EF between 40 - 45 %. Mid to basal inferiorlateral is hypokinetic The right ventricle is normal in size and function. Normal LA size by volume 22+/-6 ml/m2. The right atrium is normal in size. The aortic valve is trileaflet and appears structurally normal. Trace amount of aortic regurgitatio n. The mitral valve leaflets are mildly thickened. Mild mitral annular calcification present. There is trace mitral regurgitation. Mild tricuspid regurgitation present. The right ventricular systolic pressure, as measured by Doppl er, is 26.07mmHg. Pulmonic valve appears structurally normal. The aortic root size is normal. The inferior vena cava is mildly dilated with collapse. There is no pericardial effusion. CONCLUSIONS -------- 1. Sinus rhythm. 2. This was a technically good study. 3. The left ventricular size is normal. 4. There is moderate concentric left ventricular hypertrophy. 5. Mid to basal inferiorlateral is hypokinetic 6. The right ventricle is normal in size and function. 7. Normal LA size by volume 22+/-6 ml/m2. 8. The right atrium is normal in size. 9. The aortic valve is trileaflet and appears structurally normal. 10. Trace amount of aortic regurgitation. 11. The mitral valve leaflets are mildly thickened. 12. Mild mitral annular calcification present. 13. There is trace mitral regurgitation. 14. Mild tricuspid regurgitation present. 15. The right ventricular systolic pressure, as measured by Doppler, is 26.07mmHg. 16. Pulmonic valve appears structurally normal. 17. The aortic root size is normal. 18. The inferior vena cava is mildly dilated with collapse. 19. There is no pericardial effusion. [employer]: Radha Aly RDCS
[2018-10-29 11:47] LABS: Glucose,Whole Blood 108 mg/dL (75-99)
[2018-10-29] MEDS ORDERED: IV FLUID CONTINUATION 950 ML IV ONE (11:55)
[2018-10-29] MEDS ORDERED: fentaNYL (PF) 50 MCG/ML 2 ML AMP ONE (12:12)
[2018-10-29] MEDS ORDERED: MIDAZOLAM 2 MG/2 ML VIAL IV ONE (12:14)
[2018-10-29] MEDS ORDERED: fentaNYL (PF) 50 MCG/ML 2 ML AMP IV ONE (12:15)
[2018-10-29] MEDS ORDERED: LIDOCAINE 1% INJ 10MG/ML (20 ML MDV) SQ ONE (12:19)
[2018-10-29] MEDS ORDERED: IOPAMIDOL-370 125ML BTL INJ ONE (12:29)
[2018-10-29] MEDS ORDERED: RX INFO: IV CONTRAST WAS GIVEN 1 EACH MISC MISCELLANE PRN (12:40)
[2018-10-29] MEDS ORDERED: SODIUM CHLORIDE 0.9% 1,000 ML IV SCH (12:45)
--- NOTE | 2018-10-29 12:45 | P.CARDCATH ---
Date of Procedure: 10/29/18 Preoperative Diagnosis: Unstable angina Postoperative Diagnosis: Stable coronary artery disease Procedure(s) Performed: Left heart catheterization without left ventriculography Description of Procedure: HISTORY: This is a 73-year-old gentleman with history of ischemic heart disease with previous stent placement of the proximal to mid RCA, OM branch of the circumflex, who is admitted to the hospital with chest pain suggestive of unstable angina. Cardiac enzymes are negative. EKGs did not reveal any significant changes. However, given his previous cardiac history and chest pains, patient is advised to have a cardiac catheterization. CONSENT:I have discussed the risks, benefits and alternative therapies for the above-mentioned procedure and for both sedation/analgesia as well as necessary blood product administration, if indicated, as they pertain to this patient. The patient has indicated understanding and acceptance of the risks and procedures discussed. PROCEDURE: Patient was brought to the lab in a fasting state. Patient was given some IV sedation. The right groin is infiltrated with lidocaine and right femoral artery was entered using Seldinger technique. A 6-[place] catheter was left in place and selective coronary arteriography was performed. Patient tolerated the procedure well. Femoral angiogram was performed and Angio-Seal was applied for hemostasis. No immediate complications were noted and patient was transferred to [facility] in a stable condition Conscious Sedation: Versed 1mg Fentanyl 50 g Duration 13minutes HEMODYNAMICS: The aortic pressure is about 130/70. Left ventricular end- diastolic pressure is about 10-12. There was no gradient across the aortic valve SELECTIVE CORONARY ARTERIOGRAPHY: LEFT MAIN: Normal, long and free of any significant occlusive disease THE LEFT ANTERIOR DESCENDING CORONARY ARTERY:. This is a fairly caliber vessel giving rise to good-sized diagonal branch. The LAD has mild disease in the midportion without any critical lesions THE LEFT CIRCUMFLEX AND IS CORONARY ARTERY: This is a good caliber vessel giving rise good-sized first OM branch. The stent in the OM branch is patent. THE RIGHT CORONARY ARTERY: This is a also good caliber vessel with ectatic changes in the proximal portion. The stent in the proximal to mid RCA is patent. The distal RCA has a stable mild disease with 30 -40% luminal narrowing. LEFT VENTRICULOGRAPHY: Not performed FINAL IMPRESSION: Stable coronary artery disease with patent stents in the RCA and also OM branch. PLAN: Unit medical therapy and risk factor modification PROGNOSIS: Fair
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
[2018-10-29 13:28] VITALS: RESP 18; TEMP 98.2
[2018-10-29 15:03] VITALS: BP 123/73; PULSE 60
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
--- NOTE | 2018-10-29 23:26 | P.DS ---
Providers Date of admission: 10/28/18 20:13 Expected date of discharge: 10/29/18 Attending physician: Ezekiel Castanon Consults: 10/28/18 20:05 Consult Physician Urgent Consulting Provider: Bird Carrizales Consult Reason/Comments: angina Do you want consulting provider notified?: Yes Primary care physician: [facility] Course: Discharge diagnosis Unstable angina patient with a known history of coronary artery disease. Status post cardiac catheterization with patent stents. Maximal medical therapy history of coronary artery disease and stent placement and previous cardiac catheterization 2015. History of ischemic cardiomyopathy. Ejection fraction improved to 55-60% as per recent echocardiogram. GERD History of [place] Hypertension Hyperlipidemia Hypothyroidism Anxiety/depression and PTSD Previous history of smoking stopped in 1998 DVT prophylaxis. Hospital course Patient is a 73-year-old male with a known history of coronary artery disease and stent placement, GERD, hypertension, hyperlipidemia, history of [place] came to ER with the complaints of chest pain. 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 Patient became diaphoretic. No associated nausea vomiting or abdominal pain. Patient does have some dizziness otherwise. Patient did take nitroglycerin with seems to improve his symptoms. Patient did take aspirin without any relief.. EMS was called and patient was not to the hospital for evaluation. Otherwise patient denied any orthopnea or PND. No dizziness or lightheadedness now. No leg swelling. No fever no chills. No cough or sputum production. Patient denied any recent smoking. EKG showed normal sinus rhythm with T-wave inversions laterally. Chest x-ray showed no acute cardio pulmonary process CT of the thoracic aorta showed ectasia of infrarenal abdominal aorta. No greater than 3 cm aneurysm. No thoracic dissection. Mild ascending aortic aneurysm 4.0, severe triple vessel coronary artery disease. Patient had previous cardiac catheterization 2015 NT proBNP is 174 Troponin 3 negative Patient was continued on telemetry monitoring. Serial EKG and troponins negative.. Continued with heparin drip. Continued with aspirin statins and beta blockers. Cardiology was consulted and an patient is status post cardiac catheterization. Patent stents. Maximal medical therapy was recommended. Otherwise patient denied any complaints of chest pain or shortness of breath now. Imodium rate in the hallway without any symptoms. Stable to be discharged home and follow as an outpatient with cardiology. Discharge physical examination was done and vitals reviewed. Vital Signs - 24 hr 10/28/18 10/29/18 10/29/18 23:55 00:00 03:25 Temperature 97.7 F Pulse Rate [ 56 L 56 L 57 L Pulse Oximetery ] Respiratory 16 16 17 Rate Blood Pressure 111/50 [Right Arm] O2 Sat by Pulse 94 L Oximetry 10/29/18 10/29/18 10/29/18 03:44 08:00 11:41 Temperature 98.4 F 98.2 F 98.1 F Pulse Rate [ 54 L 55 L 54 L Pulse Oximetery ] Respiratory 16 15 15 Rate Blood Pressure 100/55 143/78 137/78 [Right Arm] O2 Sat by Pulse 94 L 98 Oximetry 10/29/18 10/29/18 10/29/18 13:00 13:15 13:29 Temperature 98.2 F Pulse Rate [ 56 L 55 L 51 L Pulse Oximetery ] Respiratory 18 Rate Blood Pressure 145/84 142/84 133/79 [Right Arm] O2 Sat by Pulse 95 94 L 94 L Oximetry 10/29/18 10/29/18 10/29/18 13:45 14:15 14:45 Temperature Pulse Rate [ 62 63 60 Pulse Oximetery ] Respiratory Rate Blood Pressure 137/91 125/74 123/73 [Right Arm] O2 Sat by Pulse 94 L 92 L 92 L Oximetry Patient Condition at Discharge: Stable Plan - Discharge Summary New Discharge Prescriptions: Continue traZODone HCL 50 mg PO HS PRN PRN Reason: Insomnia QUEtiapine FUMARATE 150 mg PO HS Levothyroxine Sodium [Synthroid] 25 mcg PO DAILY Lisinopril-Hctz 10-12.5 mg [Zestoretic 10-12.5] 1 tab PO DAILY Cyanocobalamin [Vitamin B-12] 250 mcg PO DAILY Citalopram Hydrobromide [CeleXA] 10 mg PO DAILY Acyclovir [Zovirax] 200 mg PO 5XD PRN PRN Reason: Cold Sores ALPRAZolam [Xanax] 0.5 mg PO DAILY PRN PRN Reason: Agitation Or Acute Anxiety Aspirin 325 mg PO DAILY Rosuvastatin [Crestor] 10 mg PO HS Nitroglycerin Sl Tabs [Nitrostat] 0.4 mg SUBLINGUAL Q5M PRN #25 tab PRN Reason: Chest Pain Metoprolol Tartrate [Lopressor] 12.5 mg PO BID #0 Tamsulosin [Flomax] 0.4 mg PO HS Pantoprazole [Protonix] 40 mg PO BID Albuterol Inhaler [Ventolin Hfa Inhaler] 2 puff INHALATION RT-QID PRN PRN Reason: Shortness Of Breath Discharge Medication List ALPRAZolam [Xanax] 0.5 mg PO DAILY PRN 03/22/16 [History] Acyclovir [Zovirax] 200 mg PO 5XD PRN 03/22/16 [History] Aspirin 325 mg PO DAILY 03/22/16 [History] Citalopram Hydrobromide [CeleXA] 10 mg PO DAILY 03/22/16 [History] Cyanocobalamin [Vitamin B-12] 250 mcg PO DAILY 03/22/16 [History] Levothyroxine Sodium [Synthroid] 25 mcg PO DAILY 03/22/16 [History] Lisinopril-Hctz 10-12.5 mg [Zestoretic 10-12.5] 1 tab PO DAILY 03/22/16 [History ] QUEtiapine FUMARATE 150 mg PO HS 03/22/16 [History] traZODone HCL 50 mg PO HS PRN 03/22/16 [History] Rosuvastatin [Crestor] 10 mg PO HS 08/01/16 [History] Metoprolol Tartrate [Lopressor] 12.5 mg PO BID #0 08/02/16 [Rx] Nitroglycerin Sl Tabs [Nitrostat] 0.4 mg SUBLINGUAL Q5M PRN #25 tab 08/02/16 [Rx ] Pantoprazole [Protonix] 40 mg PO BID 08/05/18 [History] Tamsulosin [Flomax] 0.4 mg PO HS 08/05/18 [History] Albuterol Inhaler [Ventolin Hfa Inhaler] 2 puff INHALATION RT-QID PRN 10/28/18 [ History] Follow up Appointment(s)/Referral(s): Bird Carrizales MD [STAFF PHYSICIAN] - 11/07/18 9:00 am (Follow up in the office with Dr. Carrizales for a Site Check as scheduled for you) [facility],Clinic [Primary Care Provider] - 1-2 days Patient Instructions/Handouts: *Surgery [facility] - After Heart Catheterization - [employer] In[employer] Instructions Activity/Diet/Wound Care/Special Instructions: See Activity Restriction Instructions Discharge Disposition: HOME SELF-CARE
== END 2018-10-29 18:09 | disposition home or self-care (01) ==
LOC: EC 17:29 → 1SOBS 20:13
PROVIDERS: ADMIT Hospitalist; ATTEND Hospitalist
DX: I25.110 Atherosclerotic heart disease of native coronary artery with unstable angina pectoris (principal); E03.9 Hypothyroidism, unspecified; E78.5 Hyperlipidemia, unspecified; F32.9 Major depressive disorder, single episode, unspecified; F43.10 Post-traumatic stress disorder, unspecified; I10 Essential (primary) hypertension; I25.2 Old myocardial infarction; I25.5 Ischemic cardiomyopathy; I71.2 Thoracic aortic aneurysm, without rupture; K21.9 Gastro-esophageal reflux disease without esophagitis; Z79.82 Long term (current) use of aspirin; Z79.890 Hormone replacement therapy; Z79.899 Other long term (current) drug therapy; Z87.891 Personal history of nicotine dependence; Z95.5 Presence of coronary angioplasty implant and graft
CPT/HCPCS: 96365; 96366 ×2; 96376; 99291; 36415; 93005; 93306; 93458; 83880; 80061; 80053; 82550 ×2; 82553 ×2; 83690; 83735; 84484 ×2; 85025 ×2; 85610; 85730 ×2; 71046; 71275; 74174; G0378 ×2; C1760; C1894; C1769; J2250; J1644 ×2; J2001; J3010; Q9967 ×2

== ENCOUNTER 2018-10-29 21:45 | Emergency (ER) | payer MEDICARE, OTHER ==
[2018-10-29] MEDS ORDERED: NITROGLYCERIN SL TABS 0.4 MG TAB SUBLINGUAL STA (21:47)
[2018-10-29] MEDS ORDERED: ASPIRIN 81 MG PO STA (21:47)
[2018-10-29] MEDS ORDERED: MORPHINE SULFATE 4 MG/ML SYRINGE IV STA (21:47)
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
--- NOTE | 2018-10-29 22:12 | XR ---
EXAM: XR Chest, 2 Views CLINICAL HISTORY: Chest pain TECHNIQUE: Frontal and lateral views of the chest. COMPARISON: Chest x-ray dated 10/28/2018 FINDINGS: Lungs: Bibasilar opacities likely representing atelectasis. Pleural space: Unremarkable. No pneumothorax. Heart: Unremarkable. No cardiomegaly. Mediastinum: Small hiatal hernia. Bones/joints: Degenerative changes of the osseous structures. IMPRESSION: Bibasilar opacities likely representing atelectasis.
[2018-10-29 22:17] LABS: Basophils % (A) 1 %; Eosinophils # (A) 0.1 k/uL (0-0.7); Eosinophils % (A) 3 %; HCT 48.1 % (39.0-53.0); HGB 15.5 gm/dL (13.0-17.5); Lymphocytes # (A) 1.6 k/uL (1.0-4.8); Lymphocytes % (A) 29 %; MCH 28.3 pg (25.0-35.0); MCHC 32.3 g/dL (31.0-37.0); MCV 87.4 fL (80.0-100.0); Monocytes # (A) 0.4 k/uL (0-1.0); Monocytes % (A) 7 %; Neutrophils # (A) 3.2 k/uL (1.3-7.7); Neutrophils % (A) 58 %; Platelet Count 265 k/uL (150-450); RDW 14.8 % (11.5-15.5); WBC 5.5 k/uL (3.8-10.6)
[2018-10-29 22:28] LABS: Albumin 3.9 g/dL (3.5-5.0); Calcium 9.3 mg/dL (8.4-10.2); Creatine Kinase 119 U/L (55-170); Magnesium 2.2 mg/dL (1.6-2.3); Partial Thromboplastin Time 22.4 sec (22.0-30.0); Potassium 4.1 mmol/L (3.5-5.1); Prothrombin Time 10.7 sec (9.0-12.0); Total Bilirubin 0.9 mg/dL (0.2-1.3); Total Protein 6.8 g/dL (6.3-8.2)
[2018-10-29 22:39] LABS: Creatine Kinase MB 1.7 ng/mL (0.0-2.4); Troponin I <0.012 ng/mL (0.000-0.034)
--- NOTE | 2018-10-30 00:31 | US ---
EXAM: US Abdomen Limited, Right Upper Quadrant CLINICAL HISTORY: Elevated AST TECHNIQUE: Real-time ultrasound of the right upper quadrant with image documentation. COMPARISON: No relevant prior studies available. FINDINGS: Liver: Liver measures upper limits of normal 18.5 cm with increased echogenicity suggesting hepatic steatosis. Cysts within the liver measuring 17 mm. No intrahepatic bile duct dilation. Gallbladder: Gallstones. No wall thickening or pericholecystic fluid. Positive sonographic Hartley's sign. Common bile duct: Common bile duct measures up to 4-5 mm. No stones. No dilation. Pancreas: Pancreas is obscured by bowel gas. Right kidney: Right kidney measures up to 10.5 cm. Small cysts are seen within the kidney. No stones. No hydronephrosis. IMPRESSION: Gallstones. No wall thickening or pericholecystic fluid. Positive sonographic Hartley's sign.
[2018-10-30 01:16] VITALS: BP 157/95
[2018-10-30 01:18] VITALS: PULSE 68; RESP 16; TEMP 97.8
== END 2018-10-30 01:24 | disposition home or self-care (01) ==
LOC: EC 21:45
DX: K80.80 Other cholelithiasis without obstruction (principal); I25.10 Atherosclerotic heart disease of native coronary artery without angina pectoris; K21.9 Gastro-esophageal reflux disease without esophagitis; E78.5 Hyperlipidemia, unspecified; I10 Essential (primary) hypertension; I25.2 Old myocardial infarction; E07.9 Disorder of thyroid, unspecified; F32.9 Major depressive disorder, single episode, unspecified; F41.9 Anxiety disorder, unspecified; F43.10 Post-traumatic stress disorder, unspecified; Z87.891 Personal history of nicotine dependence; Z79.890 Hormone replacement therapy; Z79.82 Long term (current) use of aspirin; Z79.899 Other long term (current) drug therapy; Z88.8 Allergy status to other drugs, medicaments and biological substances; Z95.5 Presence of coronary angioplasty implant and graft
CPT/HCPCS: 36415; 93005; 80053; 82550; 82553; 83690; 83735; 84484; 85025; 85610; 85730; 71046; 99285; 96374; J2270; 76705

== ENCOUNTER 2018-12-17 08:30 | Day surgery (SDC) | payer OTHER ==
[2018-12-12 09:30] VITALS: BMI 27.3
[~2018-12-17 08:30] MED LIST: DEXAMETHASONE SOD PHOSPHATE 10 MG/ML 1 ML VIAL IV ONE; HEPARIN SODIUM,PORCINE 5,000 UNIT/ML 1 ML VIAL SQ ONE; MIDAZOLAM (PF) 2 MG/2 ML VIAL IV PRN; ONDANSETRON 4 MG/2 ML VIAL IVP ONE; ceFAZolin IN SWFI 2 GM/20 ML SYRINGE IVP ONE
[2018-12-17] MEDS: LACTATED RINGERS 1,000 ML IV SCH ×3 (08:57→13:33)
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
[2018-12-17] MEDS ORDERED: PROPOFOL 10 MG/ML 20 ML VIAL IV ONE (09:59)
[2018-12-17] MEDS ORDERED: SUCCINYLCHOLINE CHLORIDE 100 MG/5 ML SYR IV ONE (09:59)
[2018-12-17] MEDS ORDERED: MIDAZOLAM 2 MG/2 ML VIAL ONE (09:59)
[2018-12-17] MEDS ORDERED: LIDOCAINE 1% INJ 10MG/ML (20 ML MDV) ONE (09:59)
[2018-12-17] MEDS ORDERED: GLYCOPYRROLATE 0.2 MG/ML 2 ML VIAL ONE (09:59)
[2018-12-17] MEDS ORDERED: ePHEDrine SULFATE/0.9% NACL/PF 50 MG/5 ML SYRINGE IV ONE (09:59)
[2018-12-17] MEDS ORDERED: HYDROmorphone (PF) 1 MG/ML ONE (09:59)
[2018-12-17] MEDS ORDERED: ROCURONIUM BROMIDE 10 MG/ML 10 ML VIAL IV ONE (09:59)
[2018-12-17] MEDS ORDERED: fentaNYL (PF) 50 MCG/ML 2 ML AMP ONE (09:59)
[2018-12-17] MEDS ORDERED: NEOSTIGMINE 1 MG/ML 10 ML VIAL ONE (09:59)
[2018-12-17] MEDS ORDERED: BUPIVACAIN-EPI 0.5%-1:200,000 30 ML VIAL SQ ONE (10:24)
--- NOTE | 2018-12-17 10:52 | P.OP ---
Date of Procedure: 12/17/18 Preoperative Diagnosis: Cholecystitis Postoperative Diagnosis: Cholecystitis Cholelithiasis Procedure(s) Performed: Laparoscopic cholecystectomy Anesthesia: SOPHIA Surgeon: Nate Torre Estimated Blood Loss (ml): 5 Pathology: other (Gallbladder) Condition: stable Disposition: PACU Description of Procedure: The patient was placed on the operating table. The patient received a general endotracheal tube anesthesia. The patients abdomen was prepped and draped in the usual sterile fashion. Through an infraumbilical stab incision, the fascia of the anterior abdominal wall was grasped with a pair of Kochers and then the Veress needle was placed in the peritoneal cavity. Position of the Veress needle was confirmed with positive drop test. The abdomen was then insufflated. After adequate insufflation, the 10 mm trocar was placed in the peritoneal cavity. Following this the laparoscope was placed in the peritoneal cavity. The patient was placed in the head-up, right side up position and then a 5 mm trocar was placed in the right lateral and right subcostal position under direct visualization. A 8 mm trocar was placed in the epigastric position. The gallbladder was grasped in the fundus and infundibulum. Traction on the gallbladder was placed in the lateral and the cephalad positions. The triangle of Calot was visualized.. The cystic duct was bluntly dissected until the union of the cystic duct and common bile duct was seen. The cystic duct was then divided and sealed with the Harmonic scissors. A PDS Endoloop was then placed throughout the cystic duct stump. The cystic artery divided and sealed with the Harmonic scissors. The gallbladder was then removed from the liver bed using Harmonic scissors. The gallbladder was then extracted through the epigastric port site. Operative field was checked for any bleeding spots and Harmonic scissors was used to coagulate the liver bed. The abdomen was irrigated. The trocars were removed. The skin was closed using interrupted 3-0 Vicryl suture. Dermabond dressing were applied. The patient tolerated the procedure well.
[2018-12-17 11:04] VITALS: TEMP 97.8
[2018-12-17] MEDS ORDERED: LABETALOL SYRINGE 5 MG/ML IVP ONE (11:22)
[2018-12-17] MEDS: HYDROmorphone 0.5 MG/0.5 ML SYRINGE IVP PRN ×2 (11:54→12:01)
[2018-12-17 12:17] VITALS: RESP 16
[2018-12-17] MEDS ORDERED: HYDROcodone/APAP 7.5-325MG 1 EACH TAB PO ONE (12:21)
[2018-12-17 14:00] VITALS: BP 149/85; PULSE 93
== END 2018-12-17 14:20 | disposition home or self-care (01) ==
LOC: OR 08:30
PROVIDERS: ATTEND Surgery
DX: K80.10 Calculus of gallbladder with chronic cholecystitis without obstruction (principal); I10 Essential (primary) hypertension; E78.5 Hyperlipidemia, unspecified; E07.9 Disorder of thyroid, unspecified; I25.2 Old myocardial infarction; K21.9 Gastro-esophageal reflux disease without esophagitis; I25.10 Atherosclerotic heart disease of native coronary artery without angina pectoris; K44.9 Diaphragmatic hernia without obstruction or gangrene; Z87.891 Personal history of nicotine dependence; Z95.5 Presence of coronary angioplasty implant and graft; Z79.82 Long term (current) use of aspirin; Z79.890 Hormone replacement therapy; Z79.52 Long term (current) use of systemic steroids; Z79.899 Other long term (current) drug therapy; Z88.8 Allergy status to other drugs, medicaments and biological substances
CPT/HCPCS: 88304; 47562; J2250; J1644; J1100; J2710; J2405; J2001; J3010; J1170 ×2; J0330; J2704; J0690

== ENCOUNTER 2020-11-15 09:07 | Emergency (ER) | payer OTHER ==
[2020-11-15 09:13] VITALS: BP 149/78; PULSE 67; RESP 18; TEMP 98.5
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
== END 2020-11-15 10:04 | disposition home or self-care (01) ==
LOC: EC 09:07
DX: L03.031 Cellulitis of right toe (principal); I25.10 Atherosclerotic heart disease of native coronary artery without angina pectoris; I25.2 Old myocardial infarction; E78.5 Hyperlipidemia, unspecified; E11.9 Type 2 diabetes mellitus without complications; I10 Essential (primary) hypertension; K21.9 Gastro-esophageal reflux disease without esophagitis; F41.9 Anxiety disorder, unspecified; F32.9 Major depressive disorder, single episode, unspecified; Z79.82 Long term (current) use of aspirin; Z79.899 Other long term (current) drug therapy; Z79.890 Hormone replacement therapy; Z88.8 Allergy status to other drugs, medicaments and biological substances; Z87.891 Personal history of nicotine dependence; Z95.5 Presence of coronary angioplasty implant and graft
CPT/HCPCS: 99283

== ENCOUNTER → 2020-11-15 | Outpatient (CLI) | payer OTHER ==
[2020-11-15 08:46] LABS: African American GFR (CKD) >90 (>60 ml/min/1.73 sqM); Blood Urea Nitrogen 16 mg/dL (9-20); Non-African American GFR(CKD) 88 (>60 ml/min/1.73 sqM)
--- NOTE | 2020-11-15 10:14 | CT ---
EXAMINATION TYPE: CT angio abdomen DATE OF EXAM: 11/15/2020 COMPARISON: 10/28/2018 HISTORY: 75-year-old male AAA follow up CT DLP: 361.3 mGycm, Automated Exposure Control for Dose Reduction was Utilized. CONTRAST: CT scan of the abdomen is performed with oral and with IV Contrast, patient injected with 1 00 mL of Isovue 370. Coronal and sagittal reconstructions performed. 3-D reconstructions generated on a dedicated independent workstation. FINDINGS: Heart upper limits of normal in size with coronary artery calcifications. No pericardial effusion. St evette atelectasis or scarring in the lower lungs. Trace right effusion suggested. Moderate-sized hiatal hernia. Stable 1.1 cm cyst posterior right liver lobe. Suggestion of trace posterior right perihepatic ascite s. Status post cholecystectomy. There is some focal fat stranding and soft tissue thickening from the an terior wall of the gastric antrum, refer to axial image 16 through 18. Some additional soft tissue nodularity along the right lateral pararenal fat measuring 1.9 cm, axial image 37. Multiple right renal cysts measuring up to 2.9 cm. Small cortical cyst lateral left kidney measuring 1.2 cm. Adrenal glands, and spleen appear within normal limits. Focal nodular prominence at the pancreatic ta il measuring 1.5 cm, unchanged from 10/28/2018. No dilated small bowel or free air. Generalized colonic diverticulosis with mild to moderate stool. Questionable mural based thickening a long the hepatic flexure of the colon, axial image 30. Numerous scattered nonenlarged and borderline size mesenteric lymph nodes measuring up to 6 mm. No re troperitoneal lymphadenopathy. Mild atherosclerotic calcifications at the origin of the celiac axis, SMA, and [place] renal arteri es. JOHN appears patent. 4 mild to moderate metastatic calcifications infrarenal abdominal aorta and c ommon iliac arteries. Stable fusiform ectasia infrarenal abdominal aorta up to 2.9 x 2.9 cm. Bones: Hypertrophic facet arthropathy mid to lower lumbar spine. IMPRESSION: 1. Mild to moderate atherosclerotic calcifications infrarenal abdominal aorta with fusiform ectasia o f 2.9 cm, not significantly changed from 10/28/2018. 2. Focal soft tissue thickening and nodularity along the anterior wall of the gastric antrum. Recomme nd direct visualization to exclude a mural mass. Correlation with patient's symptoms to exclude pepti c ulcer disease. 3. In addition, follow-up CT in 6-8 weeks to reassess this area as well as some 1.9 cm nodularity merna ng the right pararenal fat. Given interval cholecystectomy from 10/28/2018, some of these changes may b e postsurgical scarring. Neoplasm not excluded at this time. 4. Trace right effusion and trace inferior right perihepatic ascites. 5. Colonic diverticulosis. Questionable mural-based thickening along the hepatic flexure of the colon could be secondary to nondistention or short segment colitis. Correlate with direct visualization if routine screening colonoscopy is not being performed. 6. Moderate-sized hiatal hernia.
== END | disposition home or self-care (01) ==
LOC: RADCTMAIN 08:00
PROVIDERS: ATTEND Internal Medicine Cardiovascular Disease
DX: I70.0 Atherosclerosis of aorta (principal); I77.811 Abdominal aortic ectasia; M79.89 Other specified soft tissue disorders; Z90.49 Acquired absence of other specified parts of digestive tract; K57.30 Diverticulosis of large intestine without perforation or abscess without bleeding; R93.3 Abnormal findings on diagnostic imaging of other parts of digestive tract; K44.9 Diaphragmatic hernia without obstruction or gangrene
CPT/HCPCS: 82565; 84520; 74175; 36415; Q9967

== ENCOUNTER 2020-12-03 11:04 | Inpatient (IN) | payer OTHER, MEDICARE ==
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
[2020-12-03] MEDS ORDERED: PANTOPRAZOLE 40 MG/10 ML VIAL IVP STA (11:56)
[2020-12-03 11:59] LABS: Basophils # (A) 0.1 k/uL (0-0.2); Basophils % (A) 1 %; Eosinophils # (A) 0.1 k/uL (0-0.7); Eosinophils % (A) 1 %; HCT 39.8 % (39.0-53.0); HGB 12.7 gm/dL (13.0-17.5); Hypochromasia Slight; Lymphocytes # (A) 1.1 k/uL (1.0-4.8); Lymphocytes % (A) 9 %; MCH 26.2 pg (25.0-35.0); MCHC 31.8 g/dL (31.0-37.0); MCV 82.4 fL (80.0-100.0); Mean Platelet Volume 8.1; Monocytes # (A) 0.7 k/uL (0-1.0); Monocytes % (A) 6 %; Neutrophils # (A) 10.5 k/uL (1.3-7.7); Neutrophils % (A) 83 %; Platelet Count 478 k/uL (150-450); RBC 4.83 m/uL (4.30-5.90); RDW 14.2 % (11.5-15.5); WBC 12.7 k/uL (3.8-10.6)
[2020-12-03 12:02] LABS: Appearance,Urine Clear (Clear); Bilirubin,Urine Negative (Negative); Blood,Urine Trace (Negative); Color,Urine Yellow; Glucose,Urine (UA) Negative (Negative); Ketones,Urine Negative (Negative); Leukocyte Esterase,Urine Negative (Negative); Mucus,Urine Few /hpf; Nitrite,Urine Negative (Negative); PH, Urine 5.5 (5.0-8.0); Protein,Urine Trace (Negative); RBC,Urine 2 /hpf (0-5); Specific Gravity,Urine 1.026 (1.001-1.035); Squamous Epithelial Cell,Urine <1 /hpf (0-4); Urobilinogen,Urine <2.0 mg/dL (<2.0); WBC,Urine 1 /hpf (0-5)
[2020-12-03 12:07] LABS: ALT 20 U/L (4-49); AST 27 U/L (17-59); African American GFR (CKD) >90 (>60 ml/min/1.73 sqM); Albumin 3.8 g/dL (3.5-5.0); Alkaline Phosphatase 89 U/L (38-126); Amylase 41 U/L (30-110); Anion Gap 12 mmol/L; Blood Urea Nitrogen 22 mg/dL (9-20); Calcium 9.4 mg/dL (8.4-10.2); Carbon Dioxide 25 mmol/L (22-30); Chloride 102 mmol/L (98-107); Glucose 135 mg/dL (74-99); Lipase 85 U/L (23-300); Non-African American GFR(CKD) 86 (>60 ml/min/1.73 sqM); Partial Thromboplastin Time 23.2 sec (22.0-30.0); Potassium 4.2 mmol/L (3.5-5.1); Prothrombin Time 10.7 sec (9.0-12.0); Sodium 139 mmol/L (137-145); Total Bilirubin 0.5 mg/dL (0.2-1.3); Total Protein 7.2 g/dL (6.3-8.2)
--- NOTE | 2020-12-03 12:11 | XR ---
EXAMINATION TYPE: XR chest 2V DATE OF EXAM: 12/03/2020 COMPARISON: 10/29/2018 HISTORY: 75-year-old male abdominal pain TECHNIQUE: PA and lateral views FINDINGS: Heart limits of normal in size. Rounded retrocardiac density. Mild interstitial prominence is unchang ed. Low lung volumes. No radha consolidation or pleural effusion. IMPRESSION: Some hypoventilatory and other chronic changes. No acute process seen. Moderate-sized hiatal hernia.
--- NOTE | 2020-12-03 13:48 | CT ---
EXAMINATION TYPE: CT abdomen pelvis w con DATE OF EXAM: 12/03/2020 COMPARISON: CT a/p dated 12/03/2020. HISTORY: Epigastric pain and right upper quadrant pain CT DLP: 1105.6 mGycm, Automated Exposure Control for Dose Reduction was Utilized. CONTRAST: CT scan of the abdomen and pelvis is performed without oral but with IV Contrast, patient injected wi th 100 mL of Isovue 300. FINDINGS: LUNG BASES: Recurrent tiny right pleural effusion. In the posterior lateral lateral right lung base t here is persistent heterogeneity seen best on axial image 15 and sagittal image 30. Cannot exclude 2. 8 x 2.5 cm mass sagittal image 25. Persistent coronary artery calcification and/or stent in the RCA d istribution. LIVER/GB: Gallbladder not seen and presumed surgically absent. Stable nonspecific 1.0 cm lesion poste rior right hepatic periphery on axial image 21 PANCREAS: No significant abnormality is seen. SPLEEN: No significant abnormality is seen. ADRENALS: No significant abnormality is seen. KIDNEYS: Scattered simple-appearing thin-walled cysts throughout both kidneys redemonstrated. There i s 2 to 3 mm calculus left kidney upper pole level coronal image 63 and 5 mm calcification laterally r ight kidney coronal image 63. BOWEL: Stable moderate size hiatal hernia. Suboptimal evaluation of bowel without enteric contrast. D iverticuli in the sigmoid colon redemonstrated. Additional scattered colonic diverticula. No CT evide nce for acute diverticulitis. There is diverticular change in moderate wall thickening in the termina l ileum on today's study. Stomach is poorly distended. There is a suspicious subserosal mass or masslike thickening along the a nterior aspect near the antrum axial image 16. This measures roughly 2.5 x 2.3 cm. Mild fat stranding and nodularity in the adjacent mesenteric fat noted. PROSTATE/SEMINAL VESICLES: Enlarged prostate consistent with BPH. LYMPH NODES: No greater than 1cm abdominal or pelvic lymph nodes are appreciated. Some scattered pro minent but subcentimeter lymph nodes OSSEOUS STRUCTURES: No significant abnormality is seen. OTHER: Ectatic course to the distal abdominal aorta measuring up to 2.8 cm in diameter, no greater th an 3.0 cm change. IMPRESSION: Tiny right pleural effusion slightly larger from recent CT. There is persistent area of c oncern anterior gastric antrum worrisome for gastric neoplasm. I suspect there may be a mesenteric ex tension. I am suspicious for metastatic lesion into the posterior right costophrenic sulcus accountin g for the asymmetric tiny right pleural effusion.
[2020-12-03] MEDS ORDERED: HYDROmorphone 0.5 MG/0.5 ML SYRINGE IVP STA (14:00)
[2020-12-03] MEDS ORDERED: ONDANSETRON 4 MG/2 ML VIAL IVP STA (14:01)
[2020-12-03] MEDS ORDERED: NALOXONE 0.4 MG/ML 1 ML VIAL IV PRN (14:33)
[2020-12-03] MEDS ORDERED: HYDROmorphone 0.5 MG/0.5 ML SYRINGE IVP PRN (15:39)
[2020-12-03] MEDS ORDERED: ACETAMINOPHEN TAB 325 MG TAB PO STA (17:44)
[2020-12-03 20:45] LABS: Glucose,Whole Blood 187 mg/dL (75-99)
[2020-12-03] MEDS: METOPROLOL TARTRATE 12.5 MG TAB PO SCH (21:15)
[2020-12-03] MEDS: traZODone HCL 50 MG TAB PO SCH (21:15)
[2020-12-03] MEDS: ASPIRIN 325 MG TAB PO SCH (21:15)
[2020-12-03] MEDS: QUEtiapine 50 MG TAB PO SCH (21:15)
[2020-12-03] MEDS: INSULIN ASPART (NovoLOG) 100 UNIT/ML VIAL SQ SCH (21:15)
[2020-12-03] MEDS: NON FORMULARY DRUG (Rosuvastatin 20 MG Tablet) PO SCH (21:16)
[2020-12-04] MEDS: LEVOTHYROXINE 25 MCG TAB PO SCH (05:31)
[2020-12-04] MEDS: TAMSULOSIN 0.4 MG CAP.ER.24H PO SCH (08:53)
[2020-12-04] MEDS: METOPROLOL TARTRATE 12.5 MG TAB PO SCH ×2 (08:54→20:58)
[2020-12-04] MEDS: CITALOPRAM HYDROBROMIDE 10 MG TAB PO SCH (08:54)
[2020-12-04] MEDS: CYANOCOBALAMIN 500 MCG TAB PO SCH (08:54)
[2020-12-04 09:02] LABS: Glucose,Whole Blood 247 mg/dL (75-99)
[2020-12-04] MEDS: INSULIN ASPART (NovoLOG) 100 UNIT/ML VIAL SQ SCH ×4 (09:02→20:59)
--- NOTE | 2020-12-04 09:54 | CONS ---
CONSULTATION DATE OF DICTATION: December 04, 2020. REQUESTING PHYSICIAN: [facility]. HISTORY OF PRESENT ILLNESS: The patient is a 75-year-old pleasant white male admitted to the hospital with acute onset of severe epigastric and right upper quadrant abdominal pain radiating to the right shoulder for the last one month duration. The pain has been intermittent, but for the last 3 or 4 days had become persistent. He recently took his Covid vaccination. The 2nd dose was November 19. Following that, he developed gout like attacks of the right big toe. He was given some antibiotics and Motrin. Following that, he started having this epigastric discomfort. He came into the emergency room yesterday and had a CT of the abdomen and pelvis done that showed persistent area of concern in the anterior gastric antrum suspicious for gastric neoplasm. Hence, we are consulted for further management. The patient denies any nausea, vomiting. He denies any recent weight loss. Last EGD was about 5 years ago. Denies any recent NSAID use other than Motrin that was given to him for gouty attack. PAST MEDICAL HISTORY: Significant for hypertension, hyperlipidemia, diabetes mellitus, anxiety, depression, and hypothyroidism. MEDICATIONS: At home, Celexa, Synthroid, Zestoretic, Lopressor, Nitrostat, quetiapine, Crestor, Flomax, Glucophage, trazodone, aspirin. ALLERGIES: TO SIMVASTATIN, PRAZOSIN, ATORVASTATIN, ALLOPURINOL, TERAZOSIN AND VIAGRA. SOCIAL HISTORY: No smoking. No alcohol use. PAST SURGICAL HISTORY: Tonsillectomy, cardiac catheterization with stent placement, hernia repair, left knee repair, EGD and colonoscopy 5 years ago. FAMILY HISTORY: Mother dementia. Father abdominal aortic aneurysm. REVIEW OF SYSTEMS: CARDIOPULMONARY: No chest pain or shortness of breath. no dysuria or hematuria. MUSCULOSKELETAL unremarkable. SKIN unremarkable. ENDOCRINE unremarkable. PSYCHIATRIC unremarkable. NEUROLOGY: Unremarkable. ENT/VISION: Unremarkable. CONSTITUTIONAL: No recent weight loss. No fever, chills, night sweats. PHYSICAL EXAMINATION: Blood pressure 110/48, pulse rate 62, temperature T-max was 101.8. HEENT examination unremarkable. Conjunctivae pink. Sclerae anicteric. Oral cavity, no lesions. NECK no JVD or lymph node enlargement. CHEST was clear to auscultation. HEART: Regular rate and rhythm. ABDOMEN was soft. There was very mild tenderness in the epigastric area. No organomegaly noted. EXTREMITIES: No pedal edema. SKIN no rashes. NEUROLOGIC: Alert and oriented x3. No focal deficits. LABS: WBC 12.7, hemoglobin 12.7, platelets normal. Basic metabolic panel is within normal limits. IMPRESSION: 1. Epigastric and right upper quadrant abdominal pain for the last [address] scan of the abdomen showed thickening of the antrum suspicious for neoplasm. 2. History of anxiety and depression. 3. History of diabetes mellitus. 4. History of hypertension. 5. History of hypothyroidism. RECOMMENDATIONS: 1. We will proceed with an upper endoscopy tomorrow. Discussed with the patient risks, benefits and complications and he is agreeable to it. 2. Continue with regular diet. 3. Symptomatic and supportive care. 4. We will follow with you closely. Thank you for this consultation. SELAM / JOANNA: [id number] /
[2020-12-04] MEDS ORDERED: HYDROcodone/APAP 7.5-325MG 1 EACH TAB PO PRN (09:58)
[2020-12-04 11:30] LABS: Glucose,Whole Blood 184 mg/dL (75-99)
[2020-12-04 14:25] LABS: African American GFR (CKD) 84 (>60 ml/min/1.73 sqM); Anion Gap 7 mmol/L; Blood Urea Nitrogen 20 mg/dL (9-20); Calcium 9.1 mg/dL (8.4-10.2); Carbon Dioxide 32 mmol/L (22-30); Chloride 100 mmol/L (98-107); Glucose 142 mg/dL (74-99); Non-African American GFR(CKD) 73 (>60 ml/min/1.73 sqM); Potassium 4.6 mmol/L (3.5-5.1); Sodium 139 mmol/L (137-145)
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
--- NOTE | 2020-12-04 15:06 | CT ---
EXAMINATION TYPE: CT angio chest DATE OF EXAM: 12/04/2020 COMPARISON: 10/28/2018 HISTORY: PE CT DLP: 326.3 mGycm Automated exposure control for dose reduction was used. CONTRAST: Performed with IV Contrast, patient injected with 100 mL of Isovue 370. Images were obtained from the thoracic inlet to the diaphragm with IV contrast and 3-D post processed images. There is small right pleural effusion. Heart is enlarged. There is no pericardial effusion. There is coronary artery calcification. Thoracic aorta is atheromatous. There is 4.2 cm aneurysm of the ascending aorta. There are mediastinal lymph nodes that measure less than 1 cm. There are no hilar masses. There is no evidence of filling defect in the pulmonary arteries. There is some mild infiltrate and atelectasis at the posterior lung bases. There is moderate-sized hi atal hernia. Thoracic vertebra have normal alignment. There is no compression fracture. IMPRESSION: No evidence of pulmonary embolism. Cardiomegaly with basilar pulmonary mild infiltrate and atelectasi s and right pleural effusion. This could relate to some congestive heart failure. This appears new co mpared to old exam. 4.2 cm aneurysm of the ascending aorta is increased 4 mm in diameter compared to old exam. Stable hia cisco hernia.
--- NOTE | 2020-12-04 16:02 | CONS ---
CONSULTATION DATE OF SERVICE: December 04, 2020. REASON FOR CONSULTATION: Gastric lesion. CHIEF COMPLAINT: Right upper quadrant pain. HISTORY OF PRESENT ILLNESS: Rich is a very pleasant 75-year-old gentleman who presented to the emergency department because of epigastric and right upper quadrant pain which has been going on for about 2 or 3 weeks duration. It incidentally started after he had his first Covid vaccination and this pain is intermittent and also associated with some epigastric pain. The pain in the right upper quadrant is more pleuritic in nature. It is worse when he takes a deep breath. In the emergency department, he had a CT scan of the abdomen and pelvis which revealed a tiny right pleural effusion and also there is an area of concern in the anterior gastric antrum worrisome for gastric neoplasm. He was evaluated by Dr. Chelo Hurtado and the plan to undergo endoscopy tomorrow. Again, this pain started about a month ago after he got his Covid vaccine. Mostly he described the pain as pleuritic in nature in the right upper quadrant, more towards the back and is worse when he takes a deep breath. Also since he received his first Covid vaccine, he has been experiencing low-grade fever at home associated with nights sweats. He has lost about 8 pounds. There is no nausea or vomiting. His bowel is working fine. He has dark stools. No change in bowel habits. He has some exertional dyspnea and feels overall fatigue and tired. He used to have a lot of heartburn 2 years ago until he underwent a cholecystectomy. However, he had recurrence of heartburn recently. PAST MEDICAL HISTORY: Significant for coronary artery disease, hypothyroidism, hyperlipidemia, diabetes, anxiety. PAST SURGICAL HISTORY: He had cardiac stent placement, cholecystectomy in the past and hernia repair. HOME MEDICATIONS: Include Celexa, Synthroid, Zestoretic, Lopressor, Nitrostat, Quetiapine, Crestor, Flomax, Glucophage, trazodone, and aspirin. SOCIAL HISTORY: No reported history of smoking or alcohol abuse. ALLERGIES: ALLERGIC TO THE SIMVASTATIN, PRAZOSIN, ATORVASTATIN, ALLOPURINOL, TERAZOSIN, AND VIAGRA. FAMILY HISTORY: Negative for malignancy. REVIEW OF SYSTEMS: As stated above in the history of present illness, otherwise negative. PHYSICAL EXAMINATION: He is alert, oriented x3. He does not appear to be in any acute distress. His vital signs are temperature 100.1, pulse is 66 and regular, respirations 16, blood pressure is 125/65, pulse ox is 95 percent on room air. HEENT: Normocephalic, atraumatic. There is no obvious scleral icterus. NECK: Supple. No jugular venous distention. CHEST equal expansion bilaterally. LUNGS: Clear to auscultation and percussion. HEART is regular rate and rhythm. ABDOMEN: Soft. No obvious organomegaly or masses or ascites. Bowel sounds present. EXTREMITIES revealed no edema. SKIN: No significant bruises, ecchymosis, or petechiae. LYMPHATICS: No peripherally enlarged cervical or supraclavicular lymph nodes. MUSCULOSKELETAL: Moving all extremities appropriately. No percussion tenderness detected over his spine or sternum. LABORATORY DATA: WBC of 12.7, hemoglobin is 12.7, hematocrit is 39.8, platelets are 475. Sodium 139, potassium 4.2, chloride 102, CO2 is 25, BUN 22, creatinine 0.8. LFT and bilirubin are normal. IMPRESSION: 1. Suspicious gastric lesion detected on recent CT scan with the above-mentioned symptoms. This is concerning for possible underlying malignancy. 2. Right-sided pleuritic chest pain with very small amount of pleural effusion detected on CT scan of the abdomen and pelvis in this patient with underlying malignancy and pleuritic chest pain. Pulmonary embolus needs to be ruled out. RECOMMENDATIONS: 1. I had a discussion with the patient and his significant other Kaity at bedside. 2. I agree with planned EGD tomorrow morning by Dr. Chelo Hurtado. 3. We will order a CT angiogram of the chest to rule out pulmonary embolus. 4. Based on the above results, further decision will be made. The above was discussed in detail with the patient at bedside and answered all his questions to his satisfaction. Thank you very much for asking me to participate in the care of this nice gentleman. MMODL / IJN: [id number] /
[2020-12-04 17:22] LABS: Glucose,Whole Blood 163 mg/dL (75-99)
[2020-12-04 20:25] LABS: Glucose,Whole Blood 117 mg/dL (75-99)
[2020-12-04] MEDS: ASPIRIN 325 MG TAB PO SCH (20:58)
[2020-12-04] MEDS: QUEtiapine 50 MG TAB PO SCH (20:58)
[2020-12-04] MEDS: NON FORMULARY DRUG (Rosuvastatin 20 MG Tablet) PO SCH (20:59)
[2020-12-04] MEDS: traZODone HCL 50 MG TAB PO SCH (20:59)
[2020-12-05] MEDS: LEVOTHYROXINE 25 MCG TAB PO SCH (05:32)
[2020-12-05 07:30] LABS: Glucose,Whole Blood 151 mg/dL (75-99)
[2020-12-05] MEDS: INSULIN ASPART (NovoLOG) 100 UNIT/ML VIAL SQ SCH ×4 (08:10→20:42)
[2020-12-05] MEDS: TAMSULOSIN 0.4 MG CAP.ER.24H PO SCH (09:30)
[2020-12-05] MEDS: CITALOPRAM HYDROBROMIDE 10 MG TAB PO SCH (09:30)
[2020-12-05] MEDS: CYANOCOBALAMIN 500 MCG TAB PO SCH (09:30)
[2020-12-05] MEDS: METOPROLOL TARTRATE 12.5 MG TAB PO SCH ×2 (09:30→20:39)
[2020-12-05] MEDS: polyethylene glycoL 3350 17 GM POWD.PACK PO SCH (10:04)
[2020-12-05] MEDS: PANTOPRAZOLE 40 MG TABLET PO SCH ×2 (10:04→17:48)
--- NOTE | 2020-12-05 10:27 | PN ---
PROGRESS NOTE DATE OF SERVICE: December 05, 2020 Patient is a 75-year-old pleasant white male admitted to hospital with right upper quadrant abdominal pain for the last few weeks duration and some nausea. CT scan showed thickening of the antrum suspicious for neoplasm. The patient was scheduled for an upper endoscopy today, but because of scheduling reasons could not be performed. He is doing well. Symptoms have resolved. No more abdominal pain. PHYSICAL EXAMINATION: Appears comfortable. VITAL SIGNS: Stable. Blood pressure is 112/61, pulse rate 66. Temperature T-max is 100.6. HEENT examination unremarkable. Conjunctivae pink. Sclerae anicteric. Oral cavity no lesions. NECK: No JVD or lymph node enlargement. CHEST was clear to auscultation. HEART: Regular rate and rhythm. ABDOMEN: Soft, it was nontender, nondistended. Bowel sounds are positive. No organomegaly. EXTREMITIES: No pedal edema. LABS: No labs available from today. IMPRESSION: 1. Chronic right upper quadrant abdominal pain for the last few weeks duration. CT of the abdomen showed thickening of the antrum suspicious for neoplasm. 2. Low-grade fever and mild leukocytosis. 3. History of hypothyroidism. RECOMMENDATIONS: 1. Advance diet as tolerated. 2. Continue with Protonix 40 mg daily. 3. We will schedule for an upper endoscopy tomorrow. Discussed with the patient, risks, benefits and complications and he is agreeable to it. Thank you for this consultation. MMDEMONDL / JOANNA: [id number] /
[2020-12-05 11:29] LABS: Glucose,Whole Blood 282 mg/dL (75-99)
--- NOTE | 2020-12-05 14:44 | P.PN ---
Subjective pleasant 75-year-old male came in with the complaints of epigastric and right upper quadrant abdominal pain patient has some nausea denied any vomiting. Patient had a computed tomography scan of the abdomen. Which showed some thickening of the stomach as well as lymphadenopathy concerning for malignancy. Patient pain is a intermittent sharp radiation from epigastric to right upper quadrant. Patient denied any fever chills patient denied dysuria increased urinary frequency. 12/05/2020 Patient's abdominal pain completely resolved patient will undergo upper GI endoscopy tomorrow patient may have had severe gastritis resulting in thickness of stomach. Constitutional: Denied any fatigue denied any fever. Cardio vascular: denied any chest pain, palpitations Gastrointestinal denied any nausea vomiting Pulmonary: Denied any shortness of breath cough Neurologic denied any new focal deficits All inpatient medications were reviewed and appropriate changes in these medications as dictated in the interval history and assessment and plan. Objective - Vital Signs Vital signs: Vital Signs Temp 98.9 F 12/05/20 13:00 Pulse 65 12/05/20 13:00 Resp 18 12/05/20 13:00 BP 115/68 12/05/20 13:00 Pulse Ox 93 L 12/05/20 13:00 Intake & Output 12/04/20 12/05/20 12/05/20 17:59 06:59 18:59 Intake Total Balance Intake: Oral Other: # Voids - Exam PHYSICAL EXAMINATION: GENERAL: The patient is alert and oriented x3, not in any acute distress. Well developed, well nourished. HEENT: Pupils are round and equally reacting to light. EOMI. No scleral icterus. No conjunctival pallor. Normocephalic, atraumatic. No pharyngeal erythema. No thyromegaly. CARDIOVASCULAR: S1 and S2 present. No murmurs, rubs, or gallops. PULMONARY: Chest is clear to auscultation, no wheezing or crackles. ABDOMEN: Soft, nontender, nondistended, normoactive bowel sounds. No palpable organomegaly. MUSCULOSKELETAL: No joint swelling or deformity. EXTREMITIES: No cyanosis, clubbing, or pedal edema. NEUROLOGICAL: Gross neurological examination did not reveal any focal deficits. SKIN: No rashes - Labs CBC & Chem 7: 12/03/20 11:53 12/04/20 13:56 Labs: Abnormal Lab Results - Last 24 Hours (Table) 12/04/20 12/04/20 12/04/20 Range/Units 13:56 17:20 20:24 Carbon Dioxide 32 H (22-30) mmol/L Glucose 142 H (74-99) mg/dL POC Glucose (mg/dL) 163 H 117 H (75-99) mg/dL 12/05/20 12/05/20 Range/Units 07:28 11:27 Carbon Dioxide (22-30) mmol/L Glucose (74-99) mg/dL POC Glucose (mg/dL) 151 H 282 H (75-99) mg/dL Assessment and Plan Plan: -Epigastric abdominal pain: Concerning the CT findings . Possibility of malignancy as mentioned above and patient is also receiving Protonix patient does have history of gastroesophageal reflux disease. Abdominal pain resolved patient will undergo upper GI endoscopy tomorrow -Coronary artery disease -Type 2 diabetes mellitus -Hyperlipidemia -Hypertension -Hyperthyroidism - DVT prophylaxis early ambulation
[2020-12-05 17:35] LABS: Glucose,Whole Blood 184 mg/dL (75-99)
[2020-12-05] MEDS ORDERED: VANCOMYCIN IV PER PHARMACY 1 EACH MISC MISCELLANE PRN (19:44)
[2020-12-05] MEDS: ASPIRIN 325 MG TAB PO SCH (20:39)
[2020-12-05] MEDS: traZODone HCL 50 MG TAB PO SCH (20:39)
[2020-12-05] MEDS: ACETAMINOPHEN TAB 325 MG TAB PO PRN (20:39)
[2020-12-05] MEDS: QUEtiapine 50 MG TAB PO SCH (20:40)
[2020-12-05 20:50] LABS: Glucose,Whole Blood 175 mg/dL (75-99)
[2020-12-05] MEDS ORDERED: VANCOMYCIN 1,500 MG in SODIUM CHLORIDE 0.9% 250 ML IVPB ONE (21:00)
[2020-12-05] MEDS: NON FORMULARY DRUG (Rosuvastatin 20 MG Tablet) PO SCH (21:01)
[2020-12-05] MEDS: PIPERACILLIN-TAZOBACTAM 3.375 GM in SODIUM CHLORIDE 0.9% 100 ML IVPB SCH (23:12)
[2020-12-06] MEDS: LEVOTHYROXINE 25 MCG TAB PO SCH (02:46)
[2020-12-06 07:25] LABS: Glucose,Whole Blood 157 mg/dL (75-99)
[2020-12-06] MEDS: INSULIN ASPART (NovoLOG) 100 UNIT/ML VIAL SQ SCH ×4 (07:52→20:51)
[2020-12-06] MEDS: TAMSULOSIN 0.4 MG CAP.ER.24H PO SCH (08:16)
[2020-12-06] MEDS: CYANOCOBALAMIN 500 MCG TAB PO SCH (08:17)
[2020-12-06] MEDS: PANTOPRAZOLE 40 MG TABLET PO SCH ×2 (08:17→18:30)
[2020-12-06] MEDS: METOPROLOL TARTRATE 12.5 MG TAB PO SCH ×2 (08:18→20:50)
[2020-12-06] MEDS: CITALOPRAM HYDROBROMIDE 10 MG TAB PO SCH (08:18)
[2020-12-06] MEDS: PIPERACILLIN-TAZOBACTAM 3.375 GM in SODIUM CHLORIDE 0.9% 100 ML IVPB SCH ×3 (08:23→23:59)
[2020-12-06 09:06] LABS: African American GFR (CKD) >90 (>60 ml/min/1.73 sqM); Non-African American GFR(CKD) 83 (>60 ml/min/1.73 sqM)
[2020-12-06] MEDS: VANCOMYCIN 1,250 MG in SODIUM CHLORIDE 0.9% 250 ML IVPB SCH ×2 (10:31→22:03)
[2020-12-06 10:45] LABS: African American GFR (CKD) >90 (>60 ml/min/1.73 sqM); Anion Gap 7 mmol/L; Blood Urea Nitrogen 17 mg/dL (9-20); Calcium 8.8 mg/dL (8.4-10.2); Carbon Dioxide 27 mmol/L (22-30); Chloride 105 mmol/L (98-107); Glucose 147 mg/dL (74-99); Non-African American GFR(CKD) 84 (>60 ml/min/1.73 sqM); Potassium 4.2 mmol/L (3.5-5.1); Sodium 139 mmol/L (137-145)
[2020-12-06] MEDS ORDERED: VANCOMYCIN 1,250 MG in SODIUM CHLORIDE 0.9% 250 ML IVPB SCH (12:00)
[2020-12-06 12:28] LABS: Glucose,Whole Blood 150 mg/dL (75-99)
[2020-12-06] MEDS ORDERED: IV FLUID CONTINUATION 1,000 ML IV ONE ×2 (13:49)
[2020-12-06] MEDS ORDERED: PROPOFOL 10 MG/ML 20 ML VIAL IV ONE (13:55)
[2020-12-06] MEDS ORDERED: LIDOCAINE 1% INJ 10MG/ML (20 ML MDV) ONE (13:55)
--- NOTE | 2020-12-06 14:11 | P.PCN ---
Date of Procedure: 12/06/20 Procedure(s) Performed: BRIEF HISTORY: Patient is a 75-year-old, pleasant, white male admitted hospital with right upper quadrant abdominal pain for the last few weeks duration. CT of abdomen showed a 3 cm masslike lesion in antrum of the stomach and hence is scheduled for an upper endoscopy to evaluate further. PROCEDURE PERFORMED: Esophagogastroduodenoscop with biopsy . PREOPERATIVE DIAGNOSIS: That required abdominal pain and abnormal CAT scan of abdomen. IV sedation per anesthesia. PROCEDURE: After informed consent was obtained, the patient was brought into the endoscopy unit. IV sedation was administered by Anesthesia under continuous monitoring. Initially the Olympus GIF-140 video endoscope was inserted into the mouth. Esophagus intubated without any difficulty. It was gradually advanced into the stomach and duodenum and carefully examined. The bulb and the second part of the duodenum appeared normal. The scope at this time was withdrawn to the stomach, adequately insufflated with air, and upon careful examination, mucosa of the antrum, had mild gastritis. There was a 3 cm submucosal mass in the antrum of the stomach with multiple mucosal converging folds and multiple biopsies were done from this area. The body, and the fundus appeared normal. There is a moderate size hiatal hernia noted. In the hiatal hernial sac/cardia of the stomach there was a 1 cm submucosal nodule noted which was biopsied. The scope was then withdrawn into the esophagus. The GE junction was located at 34 cm from the incisors. The esophagus appeared normal. There were no erosions or ulcerations seen and the patient tolerated the procedure well. IMPRESSION: 1. 3 cm submucosal mass in the proximal antrum along the greater curvature with converging mucosal folds status post multiple biopsies. 2. 1 cm submucosal nodule in the hiatal hernial sac/cardia of the stomach status post biopsy 3. Moderate size hiatal hernia. RECOMMENDATIONS: The findings of this examination were discussed with the patient as well as his family. At this time will await the biopsy results. Advance to regular diet. Patient was advised to follow up in office in one week. He will be referred to [facility] for endoscopic ultrasound of the submucosal mass on outpatient basis.
[2020-12-06] MEDS: polyethylene glycoL 3350 17 GM POWD.PACK PO SCH (14:36)
--- NOTE | 2020-12-06 14:49 | P.PN ---
Subjective Progress Note Date: 12/06/20 This is a pleasant 75-year-old male came in with the complaints of epigastric and right upper quadrant abdominal pain patient has some nausea denied any vomiting. Patient had a computed tomography scan of the abdomen. Which showed some thickening of the stomach as well as lymphadenopathy concerning for malignancy. Patient pain is a intermittent sharp radiation from epigastric to right upper quadrant. Patient denied any fever chills patient denied dysuria increased urinary frequency. 12/05/2020 Patient's abdominal pain completely resolved patient will undergo upper GI endoscopy tomorrow patient may have had severe gastritis resulting in thickness of stomach. 12/06/2020 Patient continues to have some mild right upper quadrant abdominal discomfort although states has much improved. Patient underwent EGD with GI showing 3 cm submucosal mass in the proximal antrum along the greater curvature with converging mucosal folds, moderate size hiatal hernia, 1 cm submucosal nodule in the hiatal hernia sac/cardia of the stomach and multiple biopsies were obtained. Patient will need a follow-up outpatient with GI out of [facility]. Patient is having some right great toe gout-like flare-up and will give a dose of colchicine. patient is also having intermittent low-grade temperatures and will monitor overnight and treat accordingly with Tylenol and/or Motrin. Will repeat a.m. labs. Constitutional: Denied any fatigue denied any fever. Cardio vascular: denied any chest pain, palpitations Gastrointestinal denied any nausea vomiting Pulmonary: Denied any shortness of breath cough Neurologic denied any new focal deficits All inpatient medications were reviewed and appropriate changes in these medications as dictated in the interval history and assessment and plan. Objective - Vital Signs Vital signs: Vital Signs Temp 98.8 F 12/06/20 12:46 Pulse 63 12/06/20 14:26 Resp 19 12/06/20 14:26 BP 132/73 12/06/20 14:26 Pulse Ox 95 12/06/20 14:26 Intake & Output 12/05/20 12/06/20 12/06/20 18:59 06:59 18:59 Intake Total 1070 100 Balance 1070 100 Intake: IV 100 Intake, IV Titration 350 Amount Piperacillin-Tazobactam 3 100 .375 gm In Sodium Chloride 0.9% 100 ml @ 25 mls/hr IVPB Q8HR [facility] Rx# :[id number] Vancomycin 1,500 mg In 250 Sodium Chloride 0.9% 250 ml @ 125 mls/hr IVPB ONCE ONE Rx#:[id number] Oral 720 Other: # Voids 1 2 - Exam GENERAL: The patient is alert and oriented x3, not in any acute distress. Well developed, well nourished. HEENT: Pupils are round and equally reacting to light. EOMI. No scleral icterus. No conjunctival pallor. Normocephalic, atraumatic. No pharyngeal erythema. No thyromegaly. CARDIOVASCULAR: S1 and S2 present. No murmurs, rubs, or gallops. PULMONARY: Chest is clear to auscultation, no wheezing or crackles. ABDOMEN: Soft, nontender, nondistended, normoactive bowel sounds. No palpable organomegaly. MUSCULOSKELETAL: No joint swelling or deformity. EXTREMITIES: No cyanosis, clubbing, or pedal edema. Right great toe discomfort with burning and pain on palpation NEUROLOGICAL: Gross neurological examination did not reveal any focal deficits. SKIN: No rashes - Labs CBC & Chem 7: 12/03/20 11:53 12/06/20 10:17 Labs: Abnormal Lab Results - Last 24 Hours (Table) 12/05/20 12/05/20 12/06/20 Range/Units 17:34 20:24 07:18 Glucose (74-99) mg/dL POC Glucose (mg/dL) 184 H 175 H 157 H (75-99) mg/dL 12/06/20 12/06/20 Range/Units 10:17 12:03 Glucose 147 H (74-99) mg/dL POC Glucose (mg/dL) 150 H (75-99) mg/dL Assessment and Plan Assessment: -Epigastric abdominal pain: Concerning the CT findings . Possibility of malignancy as mentioned above and patient is also receiving Protonix patient does have history of gastroesophageal reflux disease. Patient underwent EGD with GI with multiple biopsies obtained -Right great toe discomfort, possible gout flare-up -Fevers of unknown etiology, continue with fluids and monitor for fever and treat with Tylenol. Will repeat a.m. labs. -Coronary artery disease -Gastroesophageal reflux disease -Type 2 diabetes mellitus -Hyperlipidemia -Hypertension -Hyperthyroidism -DVT prophylaxis early ambulation -GI prophylaxis -Full code Plan: Continue with current medications. Will give a dose of colchicine as patient is having right great toe discomfort the previous history of gout. Patient also having intermittent low-grade fevers of unknown etiology. Will repeat a.m. labs and monitor closely. Incentive spirometer ordered. Instructed the patient to increase activity as tolerated. Patient underwent EGD as mentioned previously and will resume diet and monitor for tolerance. Possible discharge in 24 hours.
[2020-12-06] MEDS: COLCHICINE 0.6 MG EACH PO SCH (15:22)
[2020-12-06 17:37] LABS: Glucose,Whole Blood 122 mg/dL (75-99)
--- NOTE | 2020-12-06 18:08 | P.PN ---
Subjective Progress Note Date: 12/06/20 Principal diagnosis: Gastric Lesion Status Post EGD with Submucosal biopsy today. Objective - Vital Signs Vital signs: Vital Signs Temp 98.7 F 12/06/20 14:57 Pulse 63 12/06/20 14:26 Resp 19 12/06/20 14:26 BP 132/73 12/06/20 14:26 Pulse Ox 95 12/06/20 14:26 Intake & Output 12/05/20 12/06/20 12/06/20 18:59 06:59 18:59 Intake Total 1070 680 Balance 1070 680 Intake: IV 100 Intake, IV Titration 350 Amount Piperacillin-Tazobactam 3 100 .375 gm In Sodium Chloride 0.9% 100 ml @ 25 mls/hr IVPB Q8HR [facility] Rx# :[id number] Vancomycin 1,500 mg In 250 Sodium Chloride 0.9% 250 ml @ 125 mls/hr IVPB ONCE ONE Rx#:[id number] Oral 720 580 Other: # Voids 1 2 1 - Constitutional General appearance: Present: cooperative, no acute distress - EENT Eyes: Present: poor dentition ENT: Present: hard of hearing, NA/AT - Neck Neck: Present: normal ROM - Respiratory Respiratory: bilateral: diminished - Cardiovascular Rhythm: regularly irregular - Gastrointestinal General gastrointestinal: Present: distended, tenderness - Integumentary Integumentary: Present: pale - Neurologic Neurologic: Present: CNII-XII intact - Musculoskeletal Musculoskeletal: Present: generalized weakness - Psychiatric Psychiatric: Present: A&O x's 3 - Labs CBC & Chem 7: 12/03/20 11:53 12/06/20 10:17 Labs: Abnormal Lab Results - Last 24 Hours (Table) 12/05/20 12/06/20 12/06/20 Range/Units 20:24 07:18 10:17 Glucose 147 H (74-99) mg/dL POC Glucose (mg/dL) 175 H 157 H (75-99) mg/dL 12/06/20 12/06/20 Range/Units 12:03 17:32 Glucose (74-99) mg/dL POC Glucose (mg/dL) 150 H 122 H (75-99) mg/dL Assessment and Plan (1) Gastric mass Current Visit: Yes Status: Acute Code(s): K31.89 - OTHER DISEASES OF STOMACH AND DUODENUM SNOMED Code(s): 492926765 (2) Pleural effusion Current Visit: Yes Status: Acute Code(s): J90 - PLEURAL EFFUSION, NOT EL SEWHERE CLASSIFIED SNOMED Code(s): 29219480 Plan: Await results of biopsy which was performed today via egd Physician Attest: I have completed the full history and physical and agree with abive dictation, dictated as a scribe.
[2020-12-06] MEDS: ACETAMINOPHEN TAB 325 MG TAB PO PRN (19:21)
[2020-12-06] MEDS: NON FORMULARY DRUG (Rosuvastatin 20 MG Tablet) PO SCH (20:41)
[2020-12-06 20:46] LABS: Glucose,Whole Blood 195 mg/dL (75-99)
[2020-12-06] MEDS: ASPIRIN 325 MG TAB PO SCH (20:50)
[2020-12-06] MEDS: QUEtiapine 50 MG TAB PO SCH (20:50)
[2020-12-06] MEDS: traZODone HCL 50 MG TAB PO SCH (20:50)
[2020-12-07] MEDS: LEVOTHYROXINE 25 MCG TAB PO SCH (05:19)
[2020-12-07 07:12] LABS: Glucose,Whole Blood 126 mg/dL (75-99)
[2020-12-07] MEDS: INSULIN ASPART (NovoLOG) 100 UNIT/ML VIAL SQ SCH ×4 (07:19→21:42)
[2020-12-07] MEDS: polyethylene glycoL 3350 17 GM POWD.PACK PO SCH (08:13)
[2020-12-07] MEDS: PANTOPRAZOLE 40 MG TABLET PO SCH ×2 (08:14→18:10)
[2020-12-07] MEDS: TAMSULOSIN 0.4 MG CAP.ER.24H PO SCH (08:14)
[2020-12-07] MEDS: PIPERACILLIN-TAZOBACTAM 3.375 GM in SODIUM CHLORIDE 0.9% 100 ML IVPB SCH ×2 (08:14→15:04)
[2020-12-07] MEDS: CYANOCOBALAMIN 500 MCG TAB PO SCH (08:14)
[2020-12-07] MEDS: METOPROLOL TARTRATE 12.5 MG TAB PO SCH ×2 (08:14→21:40)
[2020-12-07] MEDS: CITALOPRAM HYDROBROMIDE 10 MG TAB PO SCH (08:14)
[2020-12-07] MEDS: COLCHICINE 0.6 MG EACH PO SCH (08:14)
[2020-12-07 09:23] LABS: Basophils # (A) 0.07 X 10*3/uL (0.00-0.10); Basophils % (A) 0.8 %; Eosinophils # (A) 0.33 X 10*3/uL (0.04-0.35); Eosinophils % (A) 3.5 %; HCT 35.3 % (39.6-50.0); HGB 11.2 g/dL (13.0-17.0); Lymphocytes # (A) 1.34 X 10*3/uL (0.90-5.00); Lymphocytes % (A) 14.4 %; MCH 26.4 pg (27.0-32.0); MCHC 31.7 g/dL (32.0-37.0); MCV 83.3 fL (80.0-97.0); Mean Platelet Volume 10.8 fL (9.5-12.2); Monocytes # (A) 0.89 X 10*3/uL (0.20-1.00); Monocytes % (A) 9.6 %; Neutrophils # (A) 6.63 X 10*3/uL (1.80-7.70); Neutrophils % (A) 71.3 %; Platelet Count 440 X 10*3/uL (140-440); RBC 4.24 X 10*6/uL (4.40-5.60); RDW 14.5 % (11.5-14.5)
[2020-12-07] MEDS: VANCOMYCIN 1,250 MG in SODIUM CHLORIDE 0.9% 250 ML IVPB SCH ×2 (10:22→22:11)
[2020-12-07 10:27] LABS: African American GFR (CKD) 97.9 (60.0-200.0); Anion Gap 9.2 mmol/L (4.00-12.00); BUN/Creat Ratio 17.78 Ratio (12.00-20.00); Calcium 8.7 mg/dL (8.7-10.3); Carbon Dioxide 22.8 mmol/L (21.6-31.8); Non-African American GFR(CKD) 84.4 (60.0-200.0); Potassium 4.3 mmol/L (3.5-5.5)
--- NOTE | 2020-12-07 12:00 | XR ---
EXAMINATION TYPE: XR chest 1V portable DATE OF EXAM: 12/07/2020 Comparison: 12/09/2021 Clinical History: 75-year-old male fever, shortness of breath Findings: Heart borderline in size. Mild interstitial density in the mid and lower lung. Moderate-sized hilar h ernia suggested. No pleural effusion. Old fracture deformity medial right clavicle. Impression: Mild patchy interstitial densities in the lower lungs. If indicated, follow-up can be performed to ex clude developing infiltrates. Moderate-sized hilar hernia.
[2020-12-07 12:05] LABS: Glucose,Whole Blood 143 mg/dL (75-99)
[2020-12-07 12:43] LABS: C Reactive Protein 81.1 mg/L (<10.0); Uric Acid 3.6 mg/dL (3.5-8.5)
--- NOTE | 2020-12-07 13:00 | XR ---
EXAMINATION TYPE: XR foot complete RT DATE OF EXAM: 12/07/2020 COMPARISON: NONE HISTORY: 75 year-old male right great toe pain TECHNIQUE: 3 views FINDINGS: Mild degenerative change first MTP joint. No acute fracture, subluxation, dislocation. Small plantar heel spur. IMPRESSION: Mild first MTP joint only. Small plantar heel spur. No acute osseous abnormality seen.
--- NOTE | 2020-12-07 15:12 | P.PN ---
Subjective Progress Note Date: 12/07/20 Principal diagnosis: Right upper quadrant pain This is a pleasant 75-year-old white male who was admitted to the hospital with right upper quadrant abdominal pain for last 2 weeks duration and nausea. Is also having epigastric pain. Computed tomography scan showed some thickening of the antrum suspicious for neoplasm. Yesterday he underwent upper endoscopy which revealed a 3 cm submucosal mass in the proximal antrum along the greater curvature with converging mucosal fold status post multiple biopsies. 1 cm submucosal nodule in the hiatal hernia sac/cardia of the stomach status post biopsy and a moderate size hiatal hernia. He is seen and evaluated sitting up in his bed. He is denying any abdominal pain, nausea, or vomiting. He did spike another fever with a max temp of 102.2 yesterday evening. He is denying any cough or shortness of breath. He continues to have right great toe pain with redness and swelling. Infectious disease is now on consult. Objective - Vital Signs Vital signs: Vital Signs Temp 98.5 F 12/07/20 12:23 Pulse 59 L 12/07/20 12:23 Resp 16 12/07/20 12:23 BP 120/70 12/07/20 12:23 Pulse Ox 94 L 12/07/20 12:23 Intake & Output 12/06/20 12/07/20 12/07/20 18:59 06:59 18:59 Intake Total 680 650 200 Balance 680 650 200 Intake: IV 100 Intake, IV Titration 450 Amount Piperacillin-Tazobactam 3 200 .375 gm In Sodium Chloride 0.9% 100 ml @ 25 mls/hr IVPB Q8HR [facility] Rx# :[id number] Vancomycin 1,250 mg In 250 Sodium Chloride 0.9% 250 ml @ 125 mls/hr IVPB Q12H [facility] Rx#:[id number] Oral 580 200 200 Other: Voiding Method Toilet # Voids 1 - Exam General appearance: The patient is alert, oriented, appears in no acute distress. HET: Head is normocephalic and atraumatic. Conjunctiva pink. Sclera anicteric. Neck: Supple without lymphadenopathy. Abdomen: Soft, mild epigastric tenderness, nondistended with bowel sounds. No guarding or rigidity. Extremities: Normal skin color and turgor. No pedal edema Skin: No rashes, no jaundice Neurological: No focal deficits. Alert and oriented 3. - Labs CBC & Chem 7: 12/07/20 04:45 12/07/20 04:45 Labs: Abnormal Lab Results - Last 24 Hours (Table) 12/06/20 12/06/20 12/07/20 Range/Units 17:32 20:43 04:45 RBC 4.24 L (4.40-5.60) X 10*6/uL Hgb 11.2 L (13.0-17.0) g/dL Hct 35.3 L (39.6-50.0) % MCH 26.4 L (27.0-32.0) pg MCHC 31.7 L (32.0-37.0) g/dL Glucose (70-110) mg/dL POC Glucose (mg/dL) 122 H 195 H (75-99) mg/dL 12/07/20 12/07/20 12/07/20 Range/Units 04:45 07:05 11:44 RBC (4.40-5.60) X 10*6/uL Hgb (13.0-17.0) g/dL Hct (39.6-50.0) % MCH (27.0-32.0) pg MCHC (32.0-37.0) g/dL Glucose 122 H (70-110) mg/dL POC Glucose (mg/dL) 126 H 143 H (75-99) mg/dL Microbiology - Last 24 Hours (Table) 12/05/20 20:32 Blood Culture - Preliminary Blood No Growth after 24 hours Assessment and Plan (1) RUQ pain Narrative/Plan: This is a 75-year-old gentleman who presented to the emergency department with chronic right upper quadrant abdominal pain for the last few weeks duration. CT of the abdomen showed thickening of the antrum suspicious for neoplasm. He underwent an upper endoscopy yesterday which revealed a 3 cm submucosal mass in the proximal antrum along the greater curvature with converging mucosal folds status post multiple biopsies. Also a 1 cm submucosal nodule in the hiatal hernia sac/cardia of the stomach status post biopsy as well as a moderate size hiatal hernia. Pathology is pending. Current Visit: Yes Status: Acute Code(s): R10.11 - RIGHT UPPER QUADRANT PAIN SNOMED Code(s): 069902634 (2) Gastric mass Narrative/Plan: The patient is status post upper endoscopy as noted above. Oncology is following patient as well Current Visit: Yes Status: Acute Code(s): K31.89 - OTHER DISEASES OF STOMACH AND DUODENUM SNOMED Code(s): 264843272 (3) Fever Narrative/Plan: Infectious disease is following patient Current Visit: No Status: Acute Code(s): R50.9 - FEVER, UNSPECIFIED SNOMED Code(s): 377617277 Plan: 1. Supportive care 2. Patient is status post upper endoscopy await pathology 3. Diet as tolerated 4. Continue Protonix 40 mg daily 5. Oncology on consult 6. Infectious diseases on consult Thank you for this consultation, we will continue to follow. Dr. Sarah Hurtado I agree with the dictator's note, documented as a scribe by Pretty Sharif.
[2020-12-07 15:31] LABS: Appearance,Urine Clear (Clear); Bilirubin,Urine Negative (Negative); Blood,Urine Negative (Negative); Color,Urine Yellow; Glucose,Urine (UA) Negative (Negative); Ketones,Urine Negative (Negative); Leukocyte Esterase,Urine Negative (Negative); Nitrite,Urine Negative (Negative); Protein,Urine Trace (Negative); Specific Gravity,Urine 1.029 (1.001-1.035)
--- NOTE | 2020-12-07 16:08 | P.PN ---
Subjective Progress Note Date: 12/07/20 This is a pleasant 75-year-old male came in with the complaints of epigastric and right upper quadrant abdominal pain patient has some nausea denied any vomiting. Patient had a computed tomography scan of the abdomen. Which showed some thickening of the stomach as well as lymphadenopathy concerning for malignancy. Patient pain is a intermittent sharp radiation from epigastric to right upper quadrant. Patient denied any fever chills patient denied dysuria increased urinary frequency. 12/05/2020 Patient's abdominal pain completely resolved patient will undergo upper GI endoscopy tomorrow patient may have had severe gastritis resulting in thickness of stomach. 12/06/2020 Patient continues to have some mild right upper quadrant abdominal discomfort although states has much improved. Patient underwent EGD with GI showing 3 cm submucosal mass in the proximal antrum along the greater curvature with converging mucosal folds, moderate size hiatal hernia, 1 cm submucosal nodule in the hiatal hernia sac/cardia of the stomach and multiple biopsies were obtained. Patient will need a follow-up outpatient with GI out of [facility]. Patient is having some right great toe gout-like flare-up and will give a dose of colchicine. patient is also having intermittent low-grade temperatures and will monitor overnight and treat accordingly with Tylenol and/or Motrin. Will repeat a.m. labs. 12/07/2020 Patient is seen and evaluated in follow-up continues to have some mild abdominal discomfort in the right upper quadrant although appears to be at the rib cage. Patient is denying any shortness of breath and a chest x-ray was done showing mild patchy interstitial densities in the lower lungs and recommending follow-up to exclude developing infiltrates with a moderate sized hilar hernia. Patient has been spiking intermittent fevers and yesterday evening was 102.2. Patient is maintained on IV antibiotics in the form of Zosyn and vancomycin and will continue at this time. Infectious disease was consulted to further evaluate the fevers. Patient is also having increasing discomfort of the right great toe with now redness and severe pain 9 out of 10 of the joint of the toe. Patient recently had gout in the outpatient setting patient states. Uric acid was normal at 3.6 with a lactic acid level of 1.9 and CRP is elevated at 81.1. Urinalysis was negative. White blood count also remains within normal limits at 9.3 and hemoglobin is 11.2. Incentive spirometer was ordered and instructed the patient to continue using at least 10 times every hour while awake. An x-ray of the right foot was done showing mild first MTP joint degenerative changes with some plantar heel spur and no acute osseous abnormality seen along with no acute fracture, subluxation, or dislocation. Patient was started on colchicine. Blood cultures have been negative. Constitutional: Denied any fatigue denied any fever. Cardio vascular: denied any chest pain, palpitations Gastrointestinal denied any nausea vomiting Pulmonary: Denied any shortness of breath cough Neurologic denied any new focal deficits All inpatient medications were reviewed and appropriate changes in these medications as dictated in the interval history and assessment and plan. Objective - Vital Signs Vital signs: Vital Signs Temp 98.5 F 12/07/20 05:00 Pulse 60 12/07/20 05:00 Resp 20 12/07/20 05:00 BP 131/70 12/07/20 05:00 Pulse Ox 93 L 12/07/20 05:00 Intake & Output 12/06/20 12/07/20 12/07/20 18:59 06:59 18:59 Intake Total 680 650 200 Balance 680 650 200 Intake: IV 100 Intake, IV Titration 450 Amount Piperacillin-Tazobactam 3 200 .375 gm In Sodium Chloride 0.9% 100 ml @ 25 mls/hr IVPB Q8HR [facility] Rx# :[id number] Vancomycin 1,250 mg In 250 Sodium Chloride 0.9% 250 ml @ 125 mls/hr IVPB Q12H [facility] Rx#:[id number] Oral 580 200 200 Other: Voiding Method Toilet # Voids 1 - Exam GENERAL: The patient is alert and oriented x3, not in any acute distress. Well developed, well nourished. HEENT: Pupils are round and equally reacting to light. EOMI. No scleral icterus. No conjunctival pallor. Normocephalic, atraumatic. No pharyngeal erythema. No thyromegaly. CARDIOVASCULAR: S1 and S2 present. No murmurs, rubs, or gallops. PULMONARY: Chest is clear to auscultation, no wheezing or crackles. ABDOMEN: Soft, nontender, nondistended, normoactive bowel sounds. No palpable organomegaly. MUSCULOSKELETAL: No joint swelling or deformity. EXTREMITIES: No cyanosis, clubbing, or pedal edema. Right great toe discomfort with burning and pain on palpation and increasing redness today NEUROLOGICAL: Gross neurological examination did not reveal any focal deficits. SKIN: No rashes - Labs CBC & Chem 7: 12/07/20 04:45 12/07/20 04:45 Labs: Abnormal Lab Results - Last 24 Hours (Table) 12/06/20 12/06/20 12/06/20 Range/Units 12:03 17:32 20:43 RBC (4.40-5.60) X 10*6/uL Hgb (13.0-17.0) g/dL Hct (39.6-50.0) % MCH (27.0-32.0) pg MCHC (32.0-37.0) g/dL Glucose (70-110) mg/dL POC Glucose (mg/dL) 150 H 122 H 195 H (75-99) mg/dL 12/07/20 12/07/20 12/07/20 Range/Units 04:45 04:45 07:05 RBC 4.24 L (4.40-5.60) X 10*6/uL Hgb 11.2 L (13.0-17.0) g/dL Hct 35.3 L (39.6-50.0) % MCH 26.4 L (27.0-32.0) pg MCHC 31.7 L (32.0-37.0) g/dL Glucose 122 H (70-110) mg/dL POC Glucose (mg/dL) 126 H (75-99) mg/dL Microbiology - Last 24 Hours (Table) 12/05/20 20:32 Blood Culture - Preliminary Blood No Growth after 24 hours Assessment and Plan Assessment: -Epigastric abdominal pain: Concerning the CT findings . Possibility of malignancy as mentioned above and patient is also receiving Protonix patient does have history of gastroesophageal reflux disease. Patient underwent EGD with GI with multiple biopsies obtained -Mild patchy interstitial densities in the lower lungs with the possibility of developing infiltrates is noted on x-ray -Right great toe discomfort, possible gout flare-up -Fevers of unknown etiology, continue with fluids and monitor for fever and treat with Tylenol. Patient is maintained on IV antibiotics and infectious diseases been consulted. Will repeat a.m. labs. -Coronary artery disease -Gastroesophageal reflux disease -Type 2 diabetes mellitus -Hyperlipidemia -Hypertension -Hyperthyroidism -DVT prophylaxis early ambulation -GI prophylaxis -Full code Plan: Continue with current medications. Will give a dose of colchicine as patient is having right great toe discomfort the previous history of gout. Uric acid level is within normal limits. CRP is elevated. Infectious disease consulted and ap preciate recommendations. Patient continues to have intermittent low-grade fevers of unknown etiology. Will repeat a.m. labs and monitor closely. Continue with Incentive spirometer and instructed the patient to use 10 times every hour while awake. Instructed the patient to increase activity as t olerated. Patient underwent EGD as mentioned previously and will resume diet and monitor for tolerance. Given Patient's multiple complex medical issues hospitalization of more than 2 days and nights is required and patient continues to have unexplained fevers with a possible developing pneumonia and/or infiltrates. Will continue to monitor closely.
[2020-12-07 17:51] LABS: Glucose,Whole Blood 133 mg/dL (75-99)
[2020-12-07 20:32] LABS: Glucose,Whole Blood 157 mg/dL (75-99)
--- NOTE | 2020-12-07 20:33 | P.PN ---
Subjective Progress Note Date: 12/07/20 Principal diagnosis: Gastric Lesion Objective - Vital Signs Vital signs: Vital Signs Temp 102.7 F H 12/07/20 20:01 Pulse 97 12/07/20 20:01 Resp 18 12/07/20 20:01 BP 166/82 12/07/20 20:01 Pulse Ox 96 12/07/20 20:01 Intake & Output 12/07/20 12/07/20 12/08/20 06:59 18:59 06:59 Intake Total 650 360 Output Total 150 Balance 650 210 Intake: Intake, IV Titration 450 160 Amount IV Fluid Continuation 1, 160 000 ml @ 0 mls/hr IV .[facility] Rx#:[id number] Piperacillin-Tazobactam 3 200 .375 gm In Sodium Chloride 0.9% 100 ml @ 25 mls/hr IVPB Q8HR [facility] Rx# :[id number] Vancomycin 1,250 mg In 250 Sodium Chloride 0.9% 250 ml @ 125 mls/hr IVPB Q12H [facility] Rx#:[id number] Oral 200 200 Output: Urine 150 Other: Voiding Method Toilet - Exam Constitutional General appearance: Present: cooperative, no acute distress - EENT Eyes: Present: poor dentition ENT: Present: hard of hearing, NA/AT - Neck Neck: Present: normal ROM - Respiratory Respiratory: bilateral: diminished - Cardiovascular Rhythm: regularly irregular - Gastrointestinal General gastrointestinal: Present: distended, tenderness - Integumentary Integumentary: Present: pale - Neurologic Neurologic: Present: CNII-XII intact - Musculoskeletal Musculoskeletal: Present: generalized weakness - Psychiatric Psychiatric: Present: A&O x's 3 - Labs CBC & Chem 7: 12/07/20 04:45 12/07/20 04:45 Labs: Abnormal Lab Results - Last 24 Hours (Table) 12/06/20 12/07/20 12/07/20 Range/Units 20:43 04:45 04:45 RBC 4.24 L (4.40-5.60) X 10*6/uL Hgb 11.2 L (13.0-17.0) g/dL Hct 35.3 L (39.6-50.0) % MCH 26.4 L (27.0-32.0) pg MCHC 31.7 L (32.0-37.0) g/dL Glucose 122 H (70-110) mg/dL POC Glucose (mg/dL) 195 H (75-99) mg/dL C-Reactive Protein (<10.0) mg/L Urine Protein (Negative) 12/07/20 12/07/20 12/07/20 Range/Units 07:05 11:44 12:03 RBC (4.40-5.60) X 10*6/uL Hgb (13.0-17.0) g/dL Hct (39.6-50.0) % MCH (27.0-32.0) pg MCHC (32.0-37.0) g/dL Glucose (70-110) mg/dL POC Glucose (mg/dL) 126 H 143 H (75-99) mg/dL C-Reactive Protein 81.1 H (<10.0) mg/L Urine Protein (Negative) 12/07/20 12/07/20 12/07/20 Range/Units 15:10 17:48 20:30 RBC (4.40-5.60) X 10*6/uL Hgb (13.0-17.0) g/dL Hct (39.6-50.0) % MCH (27.0-32.0) pg MCHC (32.0-37.0) g/dL Glucose (70-110) mg/dL POC Glucose (mg/dL) 133 H 157 H (75-99) mg/dL C-Reactive Protein (<10.0) mg/L Urine Protein Trace H (Negative) Microbiology - Last 24 Hours (Table) 12/05/20 20:32 Blood Culture - Preliminary Blood No Growth after 24 hours Assessment and Plan (1) Gastric mass Current Visit: Yes Status: Acute Code(s): K31.89 - OTHER DISEASES OF STOMACH AND DUODENUM SNOMED Code(s): 428749960 (2) Pleural effusion Current Visit: Yes Status: Acute Code(s): J90 - PLEURAL EFFUSION, NOT ELSEWHERE CLASSIFIED SNOMED Code(s): 48168745 Plan: Await results of biopsy which was performed today via egd Patient will plan to follow-up with GI post discharge and then will be referred to Dr. Abdi if biopsy diagnostic. If not will be sent to tertiary center for EUS Physician Attest: I have completed the full history and physical and agree with abive dictation, dictated as a scribe.
[2020-12-07] MEDS ORDERED: VANCOMYCIN TROUGH DUE 1 EACH MISC MISCELLANE ONE (21:00)
[2020-12-07] MEDS: traZODone HCL 50 MG TAB PO SCH (21:40)
[2020-12-07] MEDS: ASPIRIN 325 MG TAB PO SCH (21:40)
[2020-12-07] MEDS: QUEtiapine 50 MG TAB PO SCH (21:40)
[2020-12-07] MEDS: ACETAMINOPHEN TAB 325 MG TAB PO PRN (21:41)
[2020-12-07] MEDS: NON FORMULARY DRUG (Rosuvastatin 20 MG Tablet) PO SCH (22:06)
[2020-12-08] MEDS: PIPERACILLIN-TAZOBACTAM 3.375 GM in SODIUM CHLORIDE 0.9% 100 ML IVPB SCH ×2 (00:41→08:22)
[2020-12-08 04:18] VITALS: PULSE 56
[2020-12-08] MEDS: LEVOTHYROXINE 25 MCG TAB PO SCH (05:54)
--- NOTE | 2020-12-08 06:14 | CONS ---
CONSULTATION DATE OF SERVICE: 12/07/2020 REASON FOR CONSULTATION: Fever. HISTORY OF PRESENT ILLNESS: The patient is a 75-year-old male who presented to the hospital 4 days ago for evaluation of the epigastric and right upper quadrant pain with some radiation to the right shoulder. The patient said this has been going on for about a month. The patient denies having any history of any trauma. The patient describes the pain to be more of a dull aching to sharp with 5-6/10 in intensity with radiation to the shoulder as mentioned above. The patient did have some nausea but no vomiting and denies having any diarrhea. The patient did have some fever at home however he did not take his temperature. On presentation to the hospital the patient was febrile with a temperature of 101.2 Fahrenheit, and the patient has been spiking fever on a daily basis. The patient did have a white count elevation on admission of 12.7 repeat is 9.30. The patient did have normal kidney function and electrolytes and liver enzymes have been normal. The patient did have a negative UA. Germain PCR was negative. The patient did have a CT of abdomen and pelvis that was done with IV contrast only and did shows right pleural effusion slightly larger than from recent CT scan and there was an area of concern anterior gastric antrum suspicious for gastric neoplasm with some mesenteric extension. The patient's CT angiogram of the chest was negative for any PE. The patient is status post EGD completed yesterday by GI. The patient noticed to have a submucosal mass in the antrum status post biopsy. With persistent fever, Infectious Disease was consulted. The patient currently denies having any headache. No chest pain, shortness of breath or cough. Abdominal pain as mentioned above. No nausea, vomiting. No diarrhea. No urinary symptoms. The patient did have pain. Has slightly swelling to the right big toe area which has been going on for a couple of weeks now. Pain to the toe is more of a dull aching 3 to 4/10 and no radiation. REVIEW OF SYSTEMS: Positive points have been mentioned in HPI. Rest of systems are negative. PAST MEDICAL HISTORY: Coronary artery disease, diabetes mellitus, GERD, hyperlipidemia, hypertension, MD, hypothyroidism. PAST SURGICAL HISTORY: Heart catheterization with stent, hernia repair, tonsillectomy. SOCIAL HISTORY: Remote history of smoking. Rarely drinks. No drug use. FAMILY HISTORY: Mother with history of dementia. Father with history of aortic aneurysm. ALLERGIES: TERAZOSIN, ALLOPURINOL, LIPITOR, PRAZOSIN, SIMVASTATIN. MEDICATIONS: the patient are currently on vancomycin pharmacy to dose, He is on Zosyn, Tylenol, [place], aspirin, Celexa, colchicine, vitamin B12, Dilaudid, NovoLog, Synthroid, Lopressor, Narcan, Protonix, MiraLAX, Seroquel and Flomax. PHYSICAL EXAMINATION: VITAL SIGNS: Blood pressure 156/82 with a pulse of 97, temperature 102.7, he is 96% on room air. GENERAL DESCRIPTION: Patient is an elderly male lying in bed in no distress. HEENT: Examination shows slight pallor, or scleral icterus. Oral mucous membrane is dry. NECK: Trachea central, no thyromegaly. LUNGS: Unlabored breathing, decreased breath sounds at the bases. No wheeze. HEART: S1-S2, regular rate and rhythm. ABDOMEN: Soft, no tenderness. No guarding or rigidity. EXTREMITIES: No edema of the feet. Right big toe with slight swelling and redness and tender to touch. NEUROLOGICAL: Patient is awake, alert, oriented times three. Mood and affect normal. LABS: Hemoglobin 11.9, white count 9.30, admission white count was 12.7, BUN of 22, creatinine 0.6. Electrolytes have been normal. Liver enzymes are normal. Urine is negative. Germain PCR was negative. CT of abdomen and pelvis and CT angiogram of the chest reports as mentioned above. DIAGNOSTIC IMPRESSION: Patient with fever in this patient admitted to the hospital with abdominal pain. This patient did have extensive workup. Did have abnormal CT and is status post EGD with some submucosal tumor. However, the into the mesentery was concerning and the patient may benefit from repeat CT with contrast to make sure no evidence of any leak. Other source could be the right big toe and possible gouty arthritis as no other obvious focus of infection. PLAN: 1. We will obtain x-rays of the right foot. 2. Check the uric acid level. 3. We will check a CT of abdomen and pelvis with oral contrast. 4. Continue with Zosyn at this point. 5. We will follow on clinical condition and recent investigations to further adjust medication if needed. Thank you for this consultation. Will follow this patient along with you. SELAM / LILLIAMN: [id number] /
[2020-12-08 07:23] LABS: Glucose,Whole Blood 117 mg/dL (75-99)
[2020-12-08] MEDS: INSULIN ASPART (NovoLOG) 100 UNIT/ML VIAL SQ SCH ×2 (07:34→13:06)
[2020-12-08] MEDS: PANTOPRAZOLE 40 MG TABLET PO SCH (07:48)
[2020-12-08] MEDS: polyethylene glycoL 3350 17 GM POWD.PACK PO SCH (08:17)
[2020-12-08] MEDS: CYANOCOBALAMIN 500 MCG TAB PO SCH (08:21)
[2020-12-08] MEDS: TAMSULOSIN 0.4 MG CAP.ER.24H PO SCH (08:22)
[2020-12-08] MEDS: METOPROLOL TARTRATE 12.5 MG TAB PO SCH (08:22)
[2020-12-08] MEDS: CITALOPRAM HYDROBROMIDE 10 MG TAB PO SCH (08:22)
[2020-12-08] MEDS: COLCHICINE 0.6 MG EACH PO SCH (08:23)
--- NOTE | 2020-12-08 08:42 | US ---
EXAMINATION TYPE: US venous doppler duplex LE DATE OF EXAM: 12/08/2020 8:28 AM COMPARISON: NONE CLINICAL HISTORY: Pain. Swelling. SIDE PERFORMED: Bilateral TECHNIQUE: The lower extremity deep venous system is examined utilizing real time linear array sonog myla with graded compression, doppler sonography and color-flow sonography. VESSELS IMAGED: Common Femoral Vein Deep Femoral Vein Greater Saphenous Vein * Femoral Vein Popliteal Vein Small Saphenous Vein * Proximal Calf Veins (* superficial vessels) Right Leg: Negative for DVT Left Leg: Negative for DVT Grayscale, color doppler, spectral doppler imaging performed of the deep veins of the bilateral lower extremities. There is normal flow, compressibility, vascular waveforms. IMPRESSION: No ultrasound evidence for acute DVT in either lower extremity.
[2020-12-08 09:07] LABS: Basophils # (A) 0.07 X 10*3/uL (0.00-0.10); Basophils % (A) 0.7 %; Eosinophils # (A) 0.24 X 10*3/uL (0.04-0.35); Eosinophils % (A) 2.5 %; HCT 35.9 % (39.6-50.0); HGB 11.1 g/dL (13.0-17.0); Lymphocytes # (A) 1.56 X 10*3/uL (0.90-5.00); Lymphocytes % (A) 16.4 %; MCH 26.2 pg (27.0-32.0); MCHC 30.9 g/dL (32.0-37.0); MCV 84.9 fL (80.0-97.0); Mean Platelet Volume 10.7 fL (9.5-12.2); Monocytes # (A) 1.02 X 10*3/uL (0.20-1.00); Monocytes % (A) 10.7 %; Neutrophils % (A) 69.3 %; Platelet Count 439 X 10*3/uL (140-440); RBC 4.23 X 10*6/uL (4.40-5.60); RDW 14.6 % (11.5-14.5); WBC 9.53 X 10*3/uL (4.50-10.00)
[2020-12-08 09:11] LABS: African American GFR (CKD) 76.8 (60.0-200.0); Albumin 3.7 g/dL (3.80-4.90); Albumin/Globulin Ratio 1.48 (1.60-3.17); Anion Gap 7.8 mmol/L (4.00-12.00); BUN/Creat Ratio 13.64 Ratio (12.00-20.00); C Reactive Protein 8.2 mg/dL (0.0-0.8); Calcium 8.6 mg/dL (8.7-10.3); Carbon Dioxide 25.2 mmol/L (21.6-31.8); Globulin 2.5 g/dL (1.6-3.3); Non-African American GFR(CKD) 66.2 (60.0-200.0); Potassium 4.5 mmol/L (3.5-5.5); Total Bilirubin 0.4 mg/dL (0.3-1.2); Total Protein 6.2 g/dL (6.2-8.2)
[2020-12-08] MEDS: IOPAMIDOL CONTRAST (ORAL USE) VIAL PO PRN ×2 (09:22→10:16)
--- NOTE | 2020-12-08 11:34 | CT ---
EXAMINATION TYPE: CT abdomen pelvis w con DATE OF EXAM: 12/08/2020 COMPARISON: CT 5 days ago. HISTORY: Pain, fever. History of newly diagnosed gastric cancer CT DLP: 987.6 mGycm, Automated Exposure Control for Dose Reduction was Utilized. CONTRAST: CT scan of the abdomen and pelvis is performed with oral and with IV Contrast, patient injected with 100 mL of Isovue 300. FINDINGS: LUNG BASES: Small to tiny right pleural effusion slightly larger from 5 days ago with associated comp ressive atelectasis. [id number] bibasilar linear scarring and atelectasis redemonstrated. In th e posterior lateral lateral right lung base there is persistent heterogeneity seen best on axial imag e 17 and sagittal image 18. Pleural metastatic enhancing 4.6 x 2.8 cm deposit needs to be considered. Persistent coronary artery calcification and/or stent in the RCA distribution. LIVER/GB: Gallbladder not seen and presumed surgically absent similar to prior. Stable nonspecific 1. 0 cm lesion posterior right hepatic periphery on axial image 23 current study. PANCREAS: No significant abnormality is seen. SPLEEN: No significant abnormality is seen. ADRENALS: No significant abnormality is seen. KIDNEYS: Scattered simple-appearing thin-walled cysts throughout both kidneys redemonstrated. There i s 2 to 3 mm calculus left kidney upper pole level coronal image 60 and 5 mm calcification laterally r ight kidney coronal image 55 redemonstrated. BOWEL: Stable moderate size hiatal hernia. The oral contrast reaches the level of the transverse colo n on current study Diverticuli in the sigmoid colon redemonstrated. Additional scattered colonic dive rticula. No CT evidence for acute diverticulitis. [id number] colonic fecal prominence in the tr ansverse and left colon on current study. Stomach is suboptimally distended. There is redemonstration of suspicious subserosal mass or rim-enha ncing heterogeneous hypodense masses along the anterior aspect near the antrum axial image 180. This measures roughly 3.0 x 2.8 cm. Mild fat stranding and nodularity in the adjacent anterior mesenteric fat is redemonstrated. Moderate to severe wall thickening of the stomach distal to this into the antr um and pylorus is seen better on current study. PROSTATE/SEMINAL VESICLES: Enlarged prostate consistent with BPH. Scattered bilateral pelvic phlebol iths. LYMPH NODES: No greater than 1cm abdominal or pelvic lymph nodes are appreciated. Some scattered pro minent but subcentimeter lymph nodes OSSEOUS STRUCTURES: Moderate disc space narrowing and vacuum disc phenomenon lumbosacral junction. Mi ld to moderate narrowing and spurring of both hip joints. OTHER: Ectatic course and moderate atherosclerotic change in the mid to distal abdominal aorta measur ing up to 2.8 cm in diameter, no greater than 3.0 cm change. No significant change from prior. Surgic al changes from bilateral inguinal hernia repair surgery in the bilateral groin redemonstrated. IMPRESSION: Source of patient's new symptoms of fever not identified. Persistent suspicious area ante rior distal stomach consistent with known gastric carcinoma. There is metastatic disease to the poste rior right costophrenic angle is thought redemonstrated.
[2020-12-08] MEDS: VANCOMYCIN 1,250 MG in SODIUM CHLORIDE 0.9% 250 ML IVPB SCH (11:35)
[2020-12-08 12:59] LABS: Glucose,Whole Blood 187 mg/dL (75-99)
[2020-12-08 13:31] VITALS: BP 124/66; RESP 16; TEMP 98.4
--- NOTE | 2020-12-08 13:31 | P.PN ---
Subjective Progress Note Date: 12/08/20 Principal diagnosis: Right upper quadrant pain This is a pleasant 75-year-old white male who was admitted to the hospital with right upper quadrant abdominal pain for last 2 weeks duration and nausea. Is also having epigastric pain. Computed tomography scan showed some thickening of the antrum suspicious for neoplasm. He underwent upper endoscopy this admission which revealed a 3 cm submucosal mass in the proximal antrum along the greater curvature with converging mucosal fold status post multiple biopsies. 1 cm submucosal nodule in the hiatal hernia sac/cardia of the stomach status post biopsy and a moderate size hiatal hernia. Pathology still pending. He is seen and evaluated. He is denying any abdominal pain, nausea, or vomiting. He did spike another fever with a max temp of 102.2 yesterday evening. He is denying any cough or shortness of breath. He continues to have right great toe pain with redness and swelling. Infectious disease is now on consult ordered a repeat CT of the abdomen. Objective - Vital Signs Vital signs: Vital Signs Temp 98 F 12/08/20 04:17 Pulse 56 L 12/08/20 04:17 Resp 18 12/08/20 04:17 BP 113/63 12/08/20 04:17 Pulse Ox 94 L 12/08/20 04:17 Intake & Output 12/07/20 12/08/20 12/08/20 18:59 06:59 18:59 Intake Total 360 Output Total 150 Balance 210 Intake: Intake, IV Titration 160 Amount IV Fluid Continuation 1, 160 000 ml @ 0 mls/hr IV .[facility] Rx#:[id number] Oral 200 Output: Urine 150 Other: Voiding Method Toilet Toilet # Voids 2 - Exam General appearance: The patient is alert, oriented, appears in no acute distress. HET: Head is normocephalic and atraumatic. Conjunctiva pink. Sclera anicteric. Neck: Supple without lymphadenopathy. Abdomen: Soft, mild epigastric tenderness, nondistended with bowel sounds. No guarding or rigidity. Extremities: Normal skin color and turgor. No pedal edema. Right great toe with redness and swelling, warm to the touch. Skin: No rashes, no jaundice Neurological: No focal deficits. Alert and oriented 3. - Labs CBC & Chem 7: 12/08/20 05:16 12/08/20 05:16 Labs: Abnormal Lab Results - Last 24 Hours (Table) 12/07/20 12/07/20 12/07/20 Range/Units 11:44 12:03 12:03 RBC (4.40-5.60) X 10*6/uL Hgb (13.0-17.0) g/dL Hct (39.6-50.0) % MCH (27.0-32.0) pg MCHC (32.0-37.0) g/dL RDW (11.5-14.5) % Monocytes # (0.20-1.00) X 10*3/uL Glucose (70-110) mg/dL POC Glucose (mg/dL) 143 H (75-99) mg/dL Calcium (8.7-10.3) mg/dL C-Reactive Protein 81.1 H (<10.0) mg/L Albumin (3.80-4.90) g/dL Albumin/Globulin Ratio (1.60-3.17) g/dL Procalcitonin 0.11 H (0.02-0.09) ng/mL Urine Protein (Negative) 12/07/20 12/07/20 12/07/20 Range/Units 15:10 17:48 20:30 RBC (4.40-5.60) X 10*6/uL Hgb (13.0-17.0) g/dL Hct (39.6-50.0) % MCH (27.0-32.0) pg MCHC (32.0-37.0) g/dL RDW (11.5-14.5) % Monocytes # (0.20-1.00) X 10*3/uL Glucose (70-110) mg/dL POC Glucose (mg/dL) 133 H 157 H (75-99) mg/dL Calcium (8.7-10.3) mg/dL C-Reactive Protein (<10.0) mg/L Albumin (3.80-4.90) g/dL Albumin/Globulin Ratio (1.60-3.17) g/dL Procalcitonin (0.02-0.09) ng/mL Urine Protein Trace H (Negative) 12/08/20 12/08/20 12/08/20 Range/Units 05:16 05:16 07:19 RBC 4.23 L (4.40-5.60) X 10*6/uL Hgb 11.1 L (13.0-17.0) g/dL Hct 35.9 L (39.6-50.0) % MCH 26.2 L (27.0-32.0) pg MCHC 30.9 L (32.0-37.0) g/dL RDW 14.6 H (11.5-14.5) % Monocytes # 1.02 H (0.20-1.00) X 10*3/uL Glucose 116 H (70-110) mg/dL POC Glucose (mg/dL) 117 H (75-99) mg/dL Calcium 8.6 L (8.7-10.3) mg/dL C-Reactive Protein 8.2 H (<10.0) mg/L Albumin 3.70 L (3.80-4.90) g/dL Albumin/Globulin Ratio 1.48 L (1.60-3.17) g/dL Procalcitonin (0.02-0.09) ng/mL Urine Protein (Negative) Microbiology - Last 24 Hours (Table) 12/05/20 20:32 Blood Culture - Preliminary Blood No Growth after 48 hours Assessment and Plan (1) RUQ pain Narrative/Plan: This is a 75-year-old gentleman who presented to the emergency department with chronic right upper quadrant abdominal pain for the last few weeks duration. CT of the abdomen showed thickening of the antrum suspicious for neoplasm. He underwent an upper endoscopy yesterday which revealed a 3 cm submucosal mass in the proximal antrum along the greater curvature with converging mucosal folds status post multiple biopsies. Also a 1 cm submucosal nodule in the hiatal hernia sac/cardia of the stomach status post biopsy as well as a moderate size hiatal hernia. Pathology is pending. Current Visit: Yes Status: Acute Code(s): R10.11 - RIGHT UPPER QUADRANT PAIN SNOMED Code(s): 029473472 (2) Gastric mass Narrative/Plan: The patient is status post upper endoscopy as noted above. Oncology is following patient as well. Current Visit: Yes Status: Acute Code(s): K31.89 - OTHER DISEASES OF STOMACH AND DUODENUM SNOMED Code(s): 254765093 (3) Fever Narrative/Plan: Infectious disease is following patient. Continue antibiotics as ordered. Current Visit: No Status: Acute Code(s): R50.9 - FEVER, UNSPECIFIED SNOMED Code(s): 224039019 Plan: 1. Supportive care 2. Patient is status post upper endoscopy await pathology 3. Diet as tolerated 4. Continue Protonix 40 mg daily 5. Oncology on consult 6. Infectious diseases on consult Thank you for this consultation, we will continue to follow. Dr. Sarah Hurtado I agree with the dictator's note, documented as a scribe by Pretty Sharif.
--- NOTE | 2020-12-08 14:28 | P.PN ---
Subjective Progress Note Date: 12/08/20 This is a pleasant 75-year-old male came in with the complaints of epigastric and right upper quadrant abdominal pain patient has some nausea denied any vomiting. Patient had a computed tomography scan of the abdomen. Which showed some thickening of the stomach as well as lymphadenopathy concerning for malignancy. Patient pain is a intermittent sharp radiation from epigastric to right upper quadrant. Patient denied any fever chills patient denied dysuria increased urinary frequency. 12/05/2020 Patient's abdominal pain completely resolved patient will undergo upper GI endoscopy tomorrow patient may have had severe gastritis resulting in thickness of stomach. 12/06/2020 Patient continues to have some mild right upper quadrant abdominal discomfort although states has much improved. Patient underwent EGD with GI showing 3 cm submucosal mass in the proximal antrum along the greater curvature with converging mucosal folds, moderate size hiatal hernia, 1 cm submucosal nodule in the hiatal hernia sac/cardia of the stomach and multiple biopsies were obtained. Patient will need a follow-up outpatient with GI out of [facility]. Patient is having some right great toe gout-like flare-up and will give a dose of colchicine. patient is also having intermittent low-grade temperatures and will monitor overnight and treat accordingly with Tylenol and/or Motrin. Will repeat a.m. labs. 12/07/2020 Patient is seen and evaluated in follow-up continues to have some mild abdominal discomfort in the right upper quadrant although appears to be at the rib cage. Patient is denying any shortness of breath and a chest x-ray was done showing mild patchy interstitial densities in the lower lungs and recommending follow-up to exclude developing infiltrates with a moderate sized hilar hernia. Patient has been spiking intermittent fevers and yesterday evening was 102.2. Patient is maintained on IV antibiotics in the form of Zosyn and vancomycin and will continue at this time. Infectious disease was consulted to further evaluate the fevers. Patient is also having increasing discomfort of the right great toe with now redness and severe pain 9 out of 10 of the joint of the toe. Patient recently had gout in the outpatient setting patient states. Uric acid was normal at 3.6 with a lactic acid level of 1.9 and CRP is elevated at 81.1. Urinalysis was negative. White blood count also remains within normal limits at 9.3 and hemoglobin is 11.2. Incentive spirometer was ordered and instructed the patient to continue using at least 10 times every hour while awake. An x-ray of the right foot was done showing mild first MTP joint degenerative changes with some plantar heel spur and no acute osseous abnormality seen along with no acute fracture, subluxation, or dislocation. Patient was started on colchicine. Blood cultures have been negative. 12/08/2020 Patient is seen this morning continues to have fever around 7:30 PM and was 102.7. Infectious disease has been consulted and following. Patient continues to have extreme pain in the right great toe and has been maintained on colchicine and will continue. Patient also underwent venous Doppler of the bilateral lower extremities with no evidence of acute DVTs. Patient also underwent abdominal pelvic CT with redemonstration of suspicious subserosal mass or rim-enhancing hypodense masses along the anterior aspect near the antrum along with mild fat stranding and nodularity with moderate to severe wall thickening of the stomach. Patient denies any abdominal discomfort and is tolerating diet with no reports of nausea or vomiting noted. Patient is maintained on IV antibiotics and will continue at this time. Constitutional: Denied any fatigue denied any fever. Cardio vascular: denied any chest pain, palpitations Gastrointestinal denied any nausea vomiting Pulmonary: Denied any shortness of breath cough Neurologic denied any new focal deficits All inpatient medications were reviewed and appropriate changes in these medications as dictated in the interval history and assessment and plan. Objective - Vital Signs Vital signs: Vital Signs Temp 98 F 12/08/20 04:17 Pulse 56 L 12/08/20 04:17 Resp 18 12/08/20 04:17 BP 113/63 12/08/20 04:17 Pulse Ox 94 L 12/08/20 04:17 Intake & Output 12/07/20 12/08/20 12/08/20 18:59 06:59 18:59 Intake Total 360 Output Total 150 Balance 210 Intake: Intake, IV Titration 160 Amount IV Fluid Continuation 1, 160 000 ml @ 0 mls/hr IV .[facility] Rx#:[id number] Oral 200 Output: Urine 150 Other: Voiding Method Toilet # Voids 2 - Exam GENERAL: The patient is alert and oriented x3, not in any acute distress. Well developed, well nourished. HEENT: Pupils are round and equally reacting to light. EOMI. No scleral icterus. No conjunctival pallor. Normocephalic, atraumatic. No pharyngeal erythema. No thyromegaly. CARDIOVASCULAR: S1 and S2 present. No murmurs, rubs, or gallops. PULMONARY: Chest is clear to auscultation, no wheezing or crackles. ABDOMEN: Soft, nontender, nondistended, normoactive bowel sounds. No palpable organomegaly. MUSCULOSKELETAL: No joint swelling or deformity. EXTREMITIES: No cyanosis, clubbing, or pedal edema. Right great toe discomfort with burning and pain on palpation and increasing redness today NEUROLOGICAL: Gross neurological examination did not reveal any focal deficits. SKIN: No rashes - Labs CBC & Chem 7: 12/08/20 05:16 12/08/20 05:16 Labs: Abnormal Lab Results - Last 24 Hours (Table) 12/07/20 12/07/20 12/07/20 Range/Units 04:45 11:44 12:03 RBC (4.40-5.60) X 10*6/uL Hgb (13.0-17.0) g/dL Hct (39.6-50.0) % MCH (27.0-32.0) pg MCHC (32.0-37.0) g/dL RDW (11.5-14.5) % Monocytes # (0.20-1.00) X 10*3/uL Glucose 122 H (70-110) mg/dL POC Glucose (mg/dL) 143 H (75-99) mg/dL Calcium (8.7-10.3) mg/dL C-Reactive Protein 81.1 H (<10.0) mg/L Albumin (3.80-4.90) g/dL Albumin/Globulin Ratio (1.60-3.17) g/dL Procalcitonin (0.02-0.09) ng/mL Urine Protein (Negative) 12/07/20 12/07/20 12/07/20 Range/Units 12:03 15:10 17:48 RBC (4.40-5.60) X 10*6/uL Hgb (13.0-17.0) g/dL Hct (39.6-50.0) % MCH (27.0-32.0) pg MCHC (32.0-37.0) g/dL RDW (11.5-14.5) % Monocytes # (0.20-1.00) X 10*3/uL Glucose (70-110) mg/dL POC Glucose (mg/dL) 133 H (75-99) mg/dL Calcium (8.7-10.3) mg/dL C-Reactive Protein (<10.0) mg/L Albumin (3.80-4.90) g/dL Albumin/Globulin Ratio (1.60-3.17) g/dL Procalcitonin 0.11 H (0.02-0.09) ng/mL Urine Protein Trace H (Negative) 12/07/20 12/08/20 12/08/20 Range/Units 20:30 05:16 05:16 RBC 4.23 L (4.40-5.60) X 10*6/uL Hgb 11.1 L (13.0-17.0) g/dL Hct 35.9 L (39.6-50.0) % MCH 26.2 L (27.0-32.0) pg MCHC 30.9 L (32.0-37.0) g/dL RDW 14.6 H (11.5-14.5) % Monocytes # 1.02 H (0.20-1.00) X 10*3/uL Glucose 116 H (70-110) mg/dL POC Glucose (mg/dL) 157 H (75-99) mg/dL Calcium 8.6 L (8.7-10.3) mg/dL C-Reactive Protein 8.2 H (<10.0) mg/L Albumin 3.70 L (3.80-4.90) g/dL Albumin/Globulin Ratio 1.48 L (1.60-3.17) g/dL Procalcitonin (0.02-0.09) ng/mL Urine Protein (Negative) 12/08/20 Range/Units 07:19 RBC (4.40-5.60) X 10*6/uL Hgb (13.0-17.0) g/dL Hct (39.6-50.0) % MCH (27.0-32.0) pg MCHC (32.0-37.0) g/dL RDW (11.5-14.5) % Monocytes # (0.20-1.00) X 10*3/uL Glucose (70-110) mg/dL POC Glucose (mg/dL) 117 H (75-99) mg/dL Calcium (8.7-10.3) mg/dL C-Reactive Protein (<10.0) mg/L Albumin (3.80-4.90) g/dL Albumin/Globulin Ratio (1.60-3.17) g/dL Procalcitonin (0.02-0.09) ng/mL Urine Protein (Negative) Microbiology - Last 24 Hours (Table) 12/05/20 20:32 Blood Culture - Preliminary Blood No Growth after 48 hours Assessment and Plan Assessment: -Epigastric abdominal pain: Concerning the CT findings . Possibility of malignancy as mentioned above and patient is also receiving Protonix patient does have history of gastroesophageal reflux disease. Patient underwent EGD with GI with multiple biopsies obtained. Patient will follow-up outpatient with GI for results -Mild patchy interstitial densities in the lower lungs with the possibility of developing infiltrates as noted on x-ray -Right great toe discomfort, possible gout flare-up -Fevers of unknown etiology, continue with fluids and monitor for fever and treat with Tylenol. Patient is maintained on IV antibiotics and infectious disease following. Will repeat a.m. labs. -Coronary artery disease -Gastroesophageal reflux disease -Type 2 diabetes mellitus -Hyperlipidemia -Hypertension -Hyperthyroidism -DVT prophylaxis early ambulation -GI prophylaxis -Full code Plan: Continue with current medications. Continue colchicine as patient is having continued right great toe discomfort the previous history of gout. CRP is elevated. Infectious disease following and appreciate recommendations. Patient continues to have intermittent low-grade fevers of unknown etiology. Another episode of fever at 102.7 at 8 PM last night. White blood count is 9.53 and BMP within normal limits. Creatinine slightly elevated at 1.1. Continue with Incentive spirometer and instructed the patient to use 10 times every hour while awake. Instructed the patient to increase activity as tolerated. Patient has been up and walking the halls. Will continue to monitor closely. Possible discharge in 24-48 hours
--- NOTE | 2020-12-08 15:35 | P.DS ---
Providers Date of admission: 12/07/20 12:09 Expected date of discharge: 12/08/20 Attending physician: Williams Kowalski Consults: 12/03/20 15:01 Consult Physician Routine Consulting Provider: Chelo Hurtado Consult Reason/Comments: gastric cancer? Do you want consulting provider notified?: Yes 12/03/20 15:02 Consult Physician Routine Consulting Provider: Trip Abdi Consult Reason/Comments: new diagnosis possible gastric cancer Do you want consulting provider notified?: Yes 12/07/20 10:30 Consult Physician Stat Consulting Provider: Emeka Elise Consult Reason/Comments: fevers Do you want consulting provider notified?: Yes Primary care physician: [facility] Hospital Course: Final Diagnosis -Epigastric abdominal pain: Concerning CT findings. Possibility of malignancy. Status post EGD with biopsies and will follow-up outpatient with GI -Mild patchy interstitial densities in the lower lungs with the possibility of developing infiltrates as noted on x-ray -Right great toe discomfort, possible gout flare-up -Fevers of unknown etiology -Coronary artery disease -Gastroesophageal reflux disease -Type 2 diabetes mellitus -Hyperlipidemia -Hypertension -Hyperthyroidism -DVT prophylaxis -GI prophylaxis -Full code Discharge disposition Patient is being discharged in a stable condition with guarded prognosis to home. Patient will follow-up with [facility] in the outpatient setting upon discharge. Patient is to continue with colchicine 0.6 mg twice daily along with Bactrim twice daily for the next week. Patient will also follow-up with GI in the outpatient setting for biopsy results. Total time taken is greater than 35 minutes. Hospital course This is a pleasant 75-year-old male came in with the complaints of epigastric and right upper quadrant abdominal pain patient has some nausea denied any vomiting. Patient had a computed tomography scan of the abdomen. Which showed some thickening of the stomach as well as lymphadenopathy concerning for malignancy. Patient pain is a intermittent sharp radiation from epigastric to right upper quadrant. Patient denied any fever chills patient denied dysuria increased urinary frequency. 12/05/2020 Patient's abdominal pain completely resolved patient will undergo upper GI endoscopy tomorrow patient may have had severe gastritis resulting in thickness of stomach. 12/06/2020 Patient continues to have some mild right upper quadrant abdominal discomfort although states has much improved. Patient underwent EGD with GI showing 3 cm submucosal mass in the proximal antrum along the greater curvature with converging mucosal folds, moderate size hiatal hernia, 1 cm submucosal nodule in the hiatal hernia sac/cardia of the stomach and multiple biopsies were obtained. Patient will need a follow-up outpatient with GI out of [facility]. Patient is having some right great toe gout-like flare-up and will give a dose of colchicine. patient is also having intermittent low-grade temperatures and will monitor overnight and treat accordingly with Tylenol and/or Motrin. Will repeat a.m. labs. 12/07/2020 Patient is seen and evaluated in follow-up continues to have some mild abdominal discomfort in the right upper quadrant although appears to be at the rib cage. Patient is denying any shortness of breath and a chest x-ray was done showing mild patchy interstitial densities in the lower lungs and recommending follow-up to exclude developing infiltrates with a moderate sized hilar hernia. Patient has been spiking intermittent fevers and yesterday evening was 102.2. Patient is maintained on IV antibiotics in the form of Zosyn and vancomycin and will continue at this time. Infectious disease was consulted to further evaluate the fevers. Patient is also having increasing discomfort of the right great toe with now redness and severe pain 9 out of 10 of the joint of the toe. Patient recently had gout in the outpatient setting patient states. Uric acid was normal at 3.6 with a lactic acid level of 1.9 and CRP is elevated at 81.1. Urinalysis was negative. White blood count also remains within normal limits at 9.3 and hemoglobin is 11.2. Incentive spirometer was ordered and instructed the patient to continue using at least 10 times every hour while awake. An x-ray of the right foot was done showing mild first MTP joint degenerative changes with some plantar heel spur and no acute osseous abnormality seen along with no acute fracture, subluxation, or dislocation. Patient was started on colchicine. Blood cultures have been negative. 12/08/2020 Patient is seen this morning continues to have fever around 7:30 PM and was 102.7. Infectious disease has been consulted and following. Patient continues to have extreme pain in the right great toe and has been maintained on colchicine and will continue. Patient also underwent venous Doppler of the bilateral lower extremities with no evidence of acute DVTs. Patient also underwent abdominal pelvic CT with redemonstration of suspicious subserosal mass or rim-enhancing hypodense masses along the anterior aspect near the antrum along with mild fat stranding and nodularity with moderate to severe wall thickening of the stomach. Patient denies any abdominal discomfort and is tolerating diet with no reports of nausea or vomiting noted. Patient is maintained on IV antibiotics and will continue at this time. After speaking with infectious disease patient will continue on oral antibiotics in the form of Bactrim twice daily for the next one week along with colchicine twice daily and will follow-up with GI in the outpatient setting along with primary care provider upon discharge. Patient instructed to continue using incentive spirometer in the outpatient setting 10 times every hour while awake. Patient also instructed to continue to monitor for fever and treat accordingly with Tylenol and/or Motrin. Currently no reports of chest pain, shortness of breath, or palpitations. Patient is afebrile. No reports of nausea or vomiting and patient is tolerating diet. Patient will be discharged home today. On exam vital signs are stable. Cardio S1, S2 are muffled. Respiratory system shows diminished breath sounds at the bases with no wheezing or rhonchi noted. Abdomen is soft and nontender. Nervous system shows no focal deficits. Please refer to medication reconciliation sheet for a list of medications. Patient Condition at Discharge: Stable Plan - Discharge Summary Discharge Rx Participant: No New Discharge Prescriptions: New Sulfamethox-Tmp 800-160Mg [Bactrim DS 800-160 mg] 1 tab PO Q12HR 7 Days #14 tab Colchicine [Colcrys] 0.6 mg PO BID 7 Days #14 each polyethylene glycoL 3350 [Miralax] 17 gm PO DAILY 30 Days #30 powd.pack Pantoprazole [Protonix] 40 mg PO AC-BID 30 Days #60 tablet. Acetaminophen Tab [Tylenol] 650 mg PO Q6HR PRN #60 tab PRN Reason: Fever And/ Or Pain Continue traZODone HCL 50 mg PO HS QUEtiapine FUMARATE 150 mg PO HS Levothyroxine Sodium [Synthroid] 25 mcg PO DAILY Cyanocobalamin [Vitamin B-12] 250 mcg PO DAILY Citalopram Hydrobromide [CeleXA] 10 mg PO DAILY Aspirin 325 mg PO HS Rosuvastatin [Crestor] 10 mg PO HS Metoprolol Tartrate [Lopressor] 12.5 mg PO BID #0 Tamsulosin [Flomax] 0.4 mg PO DAILY metFORMIN HCL [Glucophage] 500 mg PO BID Nitroglycerin Sl Tabs [Nitrostat] 0.4 mg SL Q5M PRN PRN Reason: Chest Pain Discontinued Lisinopril-Hctz 10-12.5 mg [Zestoretic 10-12.5] 1 tab PO HS Discharge Medication List Aspirin 325 mg PO HS 03/22/16 [History] Citalopram Hydrobromide [CeleXA] 10 mg PO DAILY 03/22/16 [History] Cyanocobalamin [Vitamin B-12] 250 mcg PO DAILY 03/22/16 [History] Levothyroxine Sodium [Synthroid] 25 mcg PO DAILY 03/22/16 [History] QUEtiapine FUMARATE 150 mg PO HS 03/22/16 [History] traZODone HCL 50 mg PO HS 03/22/16 [History] Rosuvastatin [Crestor] 10 mg PO HS 08/01/16 [History] Metoprolol Tartrate [Lopressor] 12.5 mg PO BID #0 08/02/16 [Rx] Tamsulosin [Flomax] 0.4 mg PO DAILY 08/05/18 [History] Nitroglycerin Sl Tabs [Nitrostat] 0.4 mg SL Q5M PRN 12/03/20 [History] metFORMIN HCL [Glucophage] 500 mg PO BID 12/03/20 [History] Acetaminophen Tab [Tylenol] 650 mg PO Q6HR PRN #60 tab 12/08/20 [Rx] Colchicine [Colcrys] 0.6 mg PO BID 7 Days #14 each 12/08/20 [Rx] Pantoprazole [Protonix] 40 mg PO AC-BID 30 Days #60 tablet. 12/08/20 [Rx] Sulfamethox-Tmp 800-160Mg [Bactrim DS 800-160 mg] 1 tab PO Q12HR 7 Days #14 tab 12/08/20 [Rx] polyethylene glycoL 3350 [Miralax] 17 gm PO DAILY 30 Days #30 powd.pack 12/08/20 [Rx] Follow up Appointment(s)/Referral(s): Chelo Hurtado MD [STAFF PHYSICIAN] - 12/13/20 11:30 am [facility],Clinic [Primary Care Provider] - 1-2 days (Call and make follow up appointment.) Activity/Diet/Wound Care/Special Instructions: Activity Limited until follow-up Continue to hold metformin for an additional 2 days due to recent CAT scans Continue to monitor blood sugars before meals at bedtime and keep a diary for primary care follow up follow up with primary care provider upon discharge follow up with GI in the outpatient setting for biopsy results Continue with antibiotics for 1 week as prescribed Continue with colchicine twice daily for the next one week Continue With Protonix Continue current diet Continue to monitor for fever and treat with Tylenol and/or Motrin Use Motrin or NSAIDs in moderation Discharge Disposition: HOME SELF-CARE
--- NOTE | 2020-12-08 15:48 | PN ---
PROGRESS NOTE DATE OF SERVICE: 12/08/2020 REASON FOR FOLLOWUP: Fever and a question of right big toe gouty arthritis versus cellulitis. INTERVAL HISTORY: The patient is currently afebrile. He did have a fever of 102 degrees Fahrenheit last evening, though, and apparently he has been spiking in the evening or at night. The patient mentioned he does not feel sick with these episodes of fever. Currently he denies having any headache. No chest pain, shortness of breath or cough. Some epigastric discomfort but no worsening. No vomiting. No abdominal pain. Did mention his right big toe pain has slightly decreased in intensity. PHYSICAL EXAMINATION: Blood pressure 124/66, pulse of 86, temperature 98.4. He is 96% on room air. General description is an elderly male lying in bed in no distress. RESPIRATORY SYSTEM: Unlabored breathing. Clear to auscultation anteriorly. HEART: S1, S2. Regular rate and rhythm. ABDOMEN: Soft. No tenderness. Right big toe swelling has slightly decreased as well as redness, and it is not as tender to touch. LABS: Hemoglobin is 11.1, white count 9.53. BUN of 15, creatinine 1.11. Blood culture has been negative. CT of abdomen and pelvis did not show any acute abnormality. Lower extremity Dopplers were negative for DVT. DIAGNOSTIC IMPRESSION AND PLAN: Patient with a fever, questionably gout arthritis or right big toe cellulitis. The patient seems to have clinically responded as far as pain and swelling of the right big toe are concerned. Will recommend colchicine 0.6 mg twice a day for about a week along with Bactrim DS one twice a day for a week, and close outpatient followup. The patient was advised if any persistent or worsening fever or worsening of the pain to the right big toe or any new symptoms, to let us know right away. Discussed with the patient's as well as with the nurse practitioner working on discharge. MMODL / IJN: [id number] /
--- NOTE | 2020-12-10 06:24 | CDI ---
Documentation Clarification Form Date: 12/10/20 From: Yris Espinal Phone: Admit Date: 12/07/2020 12:09:00 PM Patient Name: Rich Gonzalez Visit Number: [id number] Discharge Date: 12/08/2020 05:06:00 PM ATTENTION: The Clinical Documentation Specialists (CDI) and [facility] Coding Staff appreciate your assistance in clarifying documentation. Please respond to the clarification below the line at the bottom and electronically sign. The CDI & [facility] Coding staff will review the response and follow-up if needed. Please note: Queries are made part of the Legal Health Record. If you have any questions, please contact the author of this message via ITS. Dr. Sea Colon, The final diagnosis of the pathology report states: Mild chronic gastritis Documentation states: Epigastric and right upper quadrant abdominal pain for the last [address] scan of the abdomen showed thickening of the antrum suspicious for neoplasm. Patient history/risk factors: DM, GERD, HLD, HRN, hyperthyroidism Clinical Indicators: CT of abdomen showed a 3 cm mass like lesion in antrum of the stomach and hence is scheduled for an upper endoscopy to evaluate further. Treatment: IV & PO Protonix, IV antibiotics, In your professional opinion, do you agree with the pathology report indicating that specimens revealed mild chronic gastritis? Yes No Other (please specify) Unable to determine Mild chronic gastritis MTDD
== END 2020-12-08 17:06 | disposition home or self-care (01) | DRG 554 ==
LOC: EC 11:04 → 5NMEDONC 16:18 → OBSVTOIN 12-07 12:09
PROVIDERS: ADMIT Internal Medicine; ATTEND Internal Medicine
PROC: 0DB68ZX Excision of Stomach, Via Natural or Artificial Opening Endoscopic, Diagnostic (ICD-10-PCS; principal; 2020-12-06 07:30)
PROC: 0DB78ZX Excision of Stomach, Pylorus, Via Natural or Artificial Opening Endoscopic, Diagnostic (ICD-10-PCS; principal; 2020-12-06 07:30)
DX: M10.9 Gout, unspecified (principal); J90 Pleural effusion, not elsewhere classified; D72.829 Elevated white blood cell count, unspecified; E11.9 Type 2 diabetes mellitus without complications; I71.4 Abdominal aortic aneurysm, without rupture; K29.50 Unspecified chronic gastritis without bleeding; Z20.822 Contact with and (suspected) exposure to COVID-19; R50.9 Fever, unspecified; G89.29 Other chronic pain; K44.9 Diaphragmatic hernia without obstruction or gangrene; K21.9 Gastro-esophageal reflux disease without esophagitis; E05.90 Thyrotoxicosis, unspecified without thyrotoxic crisis or storm; E78.5 Hyperlipidemia, unspecified; M77.30 Calcaneal spur, unspecified foot; I25.10 Atherosclerotic heart disease of native coronary artery without angina pectoris; I10 Essential (primary) hypertension; F32.9 Major depressive disorder, single episode, unspecified; F43.10 Post-traumatic stress disorder, unspecified; I25.2 Old myocardial infarction; Z79.82 Long term (current) use of aspirin; Z79.890 Hormone replacement therapy; Z79.84 Long term (current) use of oral hypoglycemic drugs; Z79.899 Other long term (current) drug therapy; Z95.5 Presence of coronary angioplasty implant and graft; Z90.89 Acquired absence of other organs; Z87.19 Personal history of other diseases of the digestive system; Z90.49 Acquired absence of other specified parts of digestive tract; Z87.891 Personal history of nicotine dependence; Z87.81 Personal history of (healed) traumatic fracture; Z98.890 Other specified postprocedural states; Z88.5 Allergy status to narcotic agent; Z88.8 Allergy status to other drugs, medicaments and biological substances; Z82.0 Family history of epilepsy and other diseases of the nervous system; Z82.49 Family history of ischemic heart disease and other diseases of the circulatory system; Z82.69 Family history of other diseases of the musculoskeletal system and connective tissue
CPT/HCPCS: 36415; 43239; 71045; 71046; 71275; 74177; 80048; 80053; 80202; 81001; 81003; 82150; 82565; 83605; 83690; 84145; 84484; 84550; 85025; 85610; 85730; 86140; 87040; 87635; 88305; 93005; 93970; 96374; 96375; 99285

== ENCOUNTER 2021-05-04 06:45 | Day surgery (SDC) | payer MEDICARE, OTHER ==
[2021-05-03 08:29] VITALS: BMI 25.0
[~2021-05-04 06:45] MED LIST changes: +CYCLOPENTOLATE 1% OPHTH SOLN 2 ML BTL OP PRN; -DEXAMETHASONE SOD PHOSPHATE 10 MG/ML 1 ML VIAL IV ONE; -HEPARIN SODIUM,PORCINE 5,000 UNIT/ML 1 ML VIAL SQ ONE; +LACTATED RINGERS 1,000 ML IV SCH; -MIDAZOLAM (PF) 2 MG/2 ML VIAL IV PRN; -ONDANSETRON 4 MG/2 ML VIAL IVP ONE; +PHENYLEPHRINE 2.5% OPHTH DRP 2ML OP PRN; +TETRACAINE 0.5% OPHTH (PF) DROPS 4 ML BTL OP PRN; -ceFAZolin IN SWFI 2 GM/20 ML SYRINGE IVP ONE
[2021-05-04 07:37] VITALS: RESP 16; TEMP 97.7
[2021-05-04 07:47] LABS: Glucose,Whole Blood 122 mg/dL (75-99)
[2021-05-04] MEDS ORDERED: fentaNYL (PF) 50 MCG/ML 2 ML AMP ONE (08:05)
[2021-05-04] MEDS ORDERED: MIDAZOLAM 2 MG/2 ML VIAL ONE (08:05)
[2021-05-04] MEDS ORDERED: BALANCED SALT IRRIG SOLN COMB2 15 ML IRRIG.SOLN IRRIGATION ONE (08:21)
[2021-05-04] MEDS ORDERED: HYALURONATE SODIUM INTRAOCULAR 1 EACH SYRINGE (12MG/ML) INTRAOCULA ONE (08:21)
[2021-05-04] MEDS ORDERED: LIDOCAINE 1% (PF) 10MG/ML VIAL MISCELLANE ONE (08:23)
[2021-05-04] MEDS ORDERED: EPINEPHrine (PF) 1 MG/ML AMP MISCELLANE ONE (08:23)
[2021-05-04] MEDS ORDERED: EPINEPHrine (PF) 0.3 ML in BALANCED SALT IRRIG SOLN COMB2 500 ML IRRIGATION ONE (08:25)
[2021-05-04] MEDS: TIMOLOL 0.5% OPHTH DROPS 5 ML BTL OP PRN ×2 (08:25→08:31)
[2021-05-04] MEDS: MOXIFLOXACIN HCL 0.5% DROPS 3 ML BTL OP PRN ×2 (08:25→08:31)
--- NOTE | 2021-05-04 08:40 | P.OP ---
Date of Procedure: 05/04/21 Preoperative Diagnosis: NS & CS Postoperative Diagnosis: same Procedure(s) Performed: PIOL, OD Implants: [id number] 20.00 Anesthesia: MAC Surgeon: Junito Vargas Pathology: none sent Condition: stable Disposition: same day Indications for Procedure: blurry vision Operative Findings: no complications
[2021-05-04 08:57] VITALS: BP 165/82; PULSE 58
--- NOTE | 2021-05-04 19:28 | OP ---
OPERATIVE REPORT DATE OF SERVICE: May 04, 2021 PROCEDURES: Phacoemulsification of cataract and intraocular lens implant of the right eye. PREOPERATIVE DIAGNOSES: Nuclear sclerosis, cortical sclerosis and exposure to Flomax. 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 SURGEON: Dr. Junito Vargas. ANESTHESIA: Topical. ESTIMATED BLOOD LOSS: None. SPECIMEN TAKEN: None. NARRATIVE: After obtaining the appropriate consent, the patient was brought to the operating room. There he was placed under cardiac monitoring, prepped and draped in the usual sterile manner. He was approached from his right temporal side and at the 11 o'clock position an MVR blade was used to create a paracentesis port. Through this opening 1% Xylocaine MPF with 1:1000 epinephrine MPF and balanced salt solution in a ratio of 1:2:1 was injected into the anterior chamber. This was followed by stabilization of the anterior chamber with Amvisc. At the 9 o'clock position, a 2.5 mm keratome was used to create a self-sealing corneal flap incision. At this point, it was appreciated that the 3.5 mm pupillary aperture was not responding well to the medication and was totally inadequate for surgery. Therefore, a 6 mm Malyugin ring was inserted on the pupillary sphincter creating a reasonable aperture through which to perform the cataract operation. Through the temporal incision. A cystotome was introduced to begin a continuous tear capsulorrhexis which was then completed using the Utrata forceps. Hydrodissection and hydrodelineation of the lens were accomplished with balanced salt solution. Phacoemulsification of the lens utilizing phaco chop was accomplished in 10.22 seconds at 16% power. Additional Xylocaine MPF was instilled into the anterior chamber. This was followed by removal of the remaining cortical material from in and around the capsular bag as well as the posterior capsule. Additional Amvisc was then used to stabilize the capsular bag and a Bausch and Lomb MX 60 E 20.0 diopter posterior chamber intraocular lens was then injected into the capsular bag without difficulty. The remaining viscoelastic was removed from in and around the intraocular lens. This was followed by then removal of the Malyugin ring from the anterior chamber. Following the removal of the ring, additional irrigation and aspiration was used to remove the remaining viscoelastic from within the anterior chamber. The eye was then brought to normal intraocular pressure through the paracentesis ports while ensuring watertight integrity of all incisions. The patient then received 2 drops of 0.5% timolol followed by 2 drops of 0.5% moxifloxacin. He was then lightly patched and shielded in the usual manner. There were no complications from the procedure. He tolerated the procedure well and was returned to outpatient recovery in good condition. MMKERVIN / LILLIAMN: [id number] /
== END 2021-05-04 09:20 | disposition home or self-care (01) ==
LOC: OR 06:45
PROVIDERS: ATTEND Ophthalmology
DX: H25.11 Age-related nuclear cataract, right eye (principal); H21.81 Floppy iris syndrome; I10 Essential (primary) hypertension; E78.5 Hyperlipidemia, unspecified; I25.10 Atherosclerotic heart disease of native coronary artery without angina pectoris; E07.9 Disorder of thyroid, unspecified; E11.9 Type 2 diabetes mellitus without complications; K21.9 Gastro-esophageal reflux disease without esophagitis
CPT/HCPCS: 66984; C1780; J2250; J0171; J3010; J2001

== ENCOUNTER 2021-06-15 06:13 | Day surgery (SDC) | payer OTHER ==
[2021-06-13 16:17] VITALS: BMI 25.8
[~2021-06-15 06:13] MED LIST changes: +MOXIFLOXACIN HCL 0.5% DROPS 3 ML BTL OP PRN; +TIMOLOL 0.5% OPHTH DROPS 5 ML BTL OP PRN
[2021-06-15 06:59] VITALS: RESP 16; TEMP 97.6
[2021-06-15] MEDS ORDERED: LIDOCAINE 1% (10MG/ML) FOR IV START INTRADERMA ONE (07:10)
[2021-06-15 07:12] LABS: Glucose,Whole Blood 126 mg/dL (75-99)
[2021-06-15] MEDS ORDERED: fentaNYL (PF) 50 MCG/ML 2 ML AMP ONE (07:25)
[2021-06-15] MEDS ORDERED: MIDAZOLAM 2 MG/2 ML VIAL ONE (07:25)
[2021-06-15] MEDS ORDERED: EPINEPHrine (PF) 0.3 ML in BALANCED SALT IRRIG SOLN COMB2 500 ML IRRIGATION ONE (07:30)
[2021-06-15] MEDS ORDERED: HYALURONATE SODIUM INTRAOCULAR 1 EACH SYRINGE (12MG/ML) INTRAOCULA ONE (07:56)
[2021-06-15] MEDS ORDERED: BALANCED SALT IRRIG SOLN COMB2 15 ML IRRIG.SOLN IRRIGATION ONE (07:57)
[2021-06-15] MEDS ORDERED: LIDOCAINE 1% (PF) 10MG/ML VIAL SQ ONE (07:57)
[2021-06-15 08:34] VITALS: BP 163/85; PULSE 52
--- NOTE | 2021-06-15 09:00 | P.OP ---
Date of Procedure: 06/15/21 Preoperative Diagnosis: NS & CS Postoperative Diagnosis: same Procedure(s) Performed: PIOL< OS Implants: MX60E 21.00 Anesthesia: MAC Surgeon: Junito Vargas Pathology: none sent Condition: stable Disposition: same day Indications for Procedure: blurry vision Operative Findings: no complications
--- NOTE | 2021-06-15 19:42 | OP ---
OPERATIVE REPORT PROCEDURE PERFORMED: Phacoemulsification of cataract and intraocular lens implant of the left eye. PREOPERATIVE DIAGNOSIS: Nuclear sclerosis and cortical sclerosis. POSTOPERATIVE DIAGNOSES: Nuclear sclerosis, cortical sclerosis with floppy iris syndrome. SURGEON: Dr. Junito Vargas. ANESTHESIA: Topical. ESTIMATED BLOOD LOSS: None. SPECIMEN TAKEN: None. NARRATIVE: After obtaining the appropriate consent, the patient was brought to the operating room. There he was placed under cardiac monitoring, prepped and draped in usual sterile manner. He was approached from his left temporal side and at the 5 o'clock position an MVR blade was used to create a paracentesis port. Through this opening, 1% Xylocaine MPF with epinephrine 1-1000 MPF and balanced salt solution in a ratio of 1:2:1 was injected into the anterior chamber. This was followed by stabilization of the anterior chamber with Amvisc. At the 3 o'clock position, a 2.5 mm keratome was used to create a self-sealing corneal flap incision. At this point, it was decided due to the remaining or consistent miosis of about no more than 3.5 mm, a 6.25 mm Malyugin ring was inserted on the pupillary sphincter without any difficulty. This was followed by introduction of a cystotome which was used to begin a continuous tear capsulorrhexis which was completed using the Utrata forceps. Hydrodissection and hydrodelineation of the lens was accomplished with balanced salt solution. Phacoemulsification of the lens utilizing phaco chop was accomplished in 8.76 seconds at 14.84% power. Additional Xylocaine MPF was instilled into the anterior chamber. This was followed by removal of the remaining cortex under irrigation and aspiration as well as careful polishing of the posterior capsule in the capsule vacuum mode. Amvisc was then used to stabilize the capsular bag and a Bausch and Lomb MX 60E 21.0 diopter posterior chamber intraocular lens was introduced into the bag without difficulty. The Malyugin ring was disinserted from the pupillary sphincter and withdrawn from the anterior chamber of the eye. This was followed by removal of all viscoelastic from in and around the intraocular lens as well as the anterior chamber under irrigation and aspiration. The eye was then brought to normal intraocular pressure through the paracentesis port with balanced salt solution. All wounds were confirmed watertight. He then received 2 drops of 0.5% timolol followed by 2 drops of 0.5% moxifloxacin, was then lightly patched and shielded in the usual manner. There were no complications from the procedure. He tolerated the procedure well and was returned to outpatient recovery in good condition. SELAM / JOANNA: [id number] /
== END 2021-06-15 08:47 | disposition home or self-care (01) ==
LOC: OR 06:13
PROVIDERS: ATTEND Ophthalmology
DX: E11.36 Type 2 diabetes mellitus with diabetic cataract (principal); H25.12 Age-related nuclear cataract, left eye; H25.042 Posterior subcapsular polar age-related cataract, left eye; H43.392 Other vitreous opacities, left eye; Z98.41 Cataract extraction status, right eye; I10 Essential (primary) hypertension; E07.9 Disorder of thyroid, unspecified; I25.10 Atherosclerotic heart disease of native coronary artery without angina pectoris; F43.10 Post-traumatic stress disorder, unspecified; Z82.49 Family history of ischemic heart disease and other diseases of the circulatory system; Z96.1 Presence of intraocular lens; Z83.3 Family history of diabetes mellitus; Z84.89 Family history of other specified conditions; I25.2 Old myocardial infarction; K21.9 Gastro-esophageal reflux disease without esophagitis; Z79.84 Long term (current) use of oral hypoglycemic drugs; Z79.82 Long term (current) use of aspirin; Z79.890 Hormone replacement therapy; Z79.899 Other long term (current) drug therapy; Z88.5 Allergy status to narcotic agent; Z88.8 Allergy status to other drugs, medicaments and biological substances; J30.2 Other seasonal allergic rhinitis
CPT/HCPCS: 66984; C1780; J2250; J0171; J3010; J2001

== ENCOUNTER → 2022-01-26 | Outpatient (CLI) | payer OTHER ==
--- NOTE | 2022-01-26 11:02 | MR ---
EXAMINATION TYPE: MR abdomen wo/w con DATE OF EXAM: 01/26/2022 COMPARISON: CT abdomen and pelvis December 08, 2020 and older CTs HISTORY: Stomach pain, gastric mass, biopsy done at outside facility. CONTRAST: Standard multiplanar, multisequence MRI departmental protocol images were obtained without contrast a nd with 8 mL intravenous Gadavist gadolinium contrast. Imaging performed of the abdomen FINDINGS: Exam noted suboptimal as patient unable to hold breath. Cardiomegaly is redemonstrated. Lung bases are grossly clear. Liver remains normal in size. Gallbladd er is surgically absent. Spleen and both adrenal glands remain within normal limits. Pancreas shows mild generalized atrophy s imilar to recent CTs. There are benign thin-walled cysts scattered throughout both kidneys with corti cleo thinning. No hydronephrosis. Findings consistent with product of chronic medical renal disease. There is prominent diverticulosis redemonstrated throughout the visualized colon. No suspicious small or large bowel dilatation. Persistent moderate-sized fixed hiatal hernia. Stomach redemonstrates poo r distention with moderate wall thickening and prominence below the diaphragm. Corresponding to recen t CTs there is abnormal soft tissue along the anterior wall of the stomach into the adjacent subcutan eous fat, this is less prominent than most recent CT after biopsy but remains abnormal. Small area of irregular enhancement remains present adjacent to the superior left hepatic lobe measuring approxima tely 2.2 x 1.9 cm on postcontrast imaging. No greater than 1.0 cm abdominal adenopathy. No intra-abdominal ascites. 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 Osseous structures are intact. IMPRESSION: Abnormal area along the anterior wall of the stomach measuring near 2.0 cm remains presen t and should be correlated with recent biopsy. No suspicious adenopathy or metastatic disease.
== END | disposition home or self-care (01) ==
LOC: RADMRIMAIN 08:40
PROVIDERS: ATTEND Physician Assistant Medical
DX: R93.3 Abnormal findings on diagnostic imaging of other parts of digestive tract (principal)
CPT/HCPCS: 74183; A9585

== ENCOUNTER → 2022-12-01 | Outpatient (CLI) | payer OTHER, MEDICARE | END | disposition home or self-care (01) | LOC: LABWHC1 10:02 | PROVIDERS: ATTEND Urology | DX: R97.20 Elevated prostate specific antigen [PSA] (principal) | CPT/HCPCS: 36415; 84153 ==

== ENCOUNTER 2022-12-06 15:36 | Emergency (ER) | payer MEDICARE, OTHER ==
[2022-12-06] MEDS ORDERED: MECLIZINE 12.5 MG TAB PO STA (16:44)
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
[2022-12-06 17:33] LABS: Basophils # (A) 0.1 k/uL (0-0.2); Basophils % (A) 1 %; Eosinophils # (A) 0.1 k/uL (0-0.7); Eosinophils % (A) 0 %; HCT 47.1 % (39.0-53.0); HGB 15.2 gm/dL (13.0-17.5); Lymphocytes # (A) 0.6 k/uL (1.0-4.8); Lymphocytes % (A) 6 %; MCH 27.9 pg (25.0-35.0); MCHC 32.3 g/dL (31.0-37.0); MCV 86.3 fL (80.0-100.0); Mean Platelet Volume 8.9; Monocytes # (A) 0.7 k/uL (0-1.0); Monocytes % (A) 6 %; Neutrophils # (A) 9.1 k/uL (1.3-7.7); Neutrophils % (A) 85 %; Platelet Count 195 k/uL (150-450); RBC 5.46 m/uL (4.30-5.90); RDW 14.7 % (11.5-15.5); WBC 10.7 k/uL (3.8-10.6)
[2022-12-06 17:42] LABS: ALT 22 U/L (4-49); AST 23 U/L (17-59); African American GFR (CKD) >90 (>60 ml/min/1.73 sqM); Albumin 4.1 g/dL (3.5-5.0); Alkaline Phosphatase 99 U/L (38-126); Anion Gap 10 mmol/L; Blood Urea Nitrogen 12 mg/dL (9-20); Calcium 8.7 mg/dL (8.4-10.2); Carbon Dioxide 22 mmol/L (22-30); Chloride 103 mmol/L (98-107); Glucose 138 mg/dL (74-99); Non-African American GFR(CKD) 86 (>60 ml/min/1.73 sqM); Potassium 4.4 mmol/L (3.5-5.1); Sodium 135 mmol/L (137-145); Total Bilirubin 1.2 mg/dL (0.2-1.3); Total Protein 7.2 g/dL (6.3-8.2)
--- NOTE | 2022-12-06 17:48 | CT ---
EXAMINATION TYPE: CT brain wo con DATE OF EXAM: 12/06/2022 COMPARISON: None HISTORY: dizziness and nausea CT DLP: 1127.4 mGycm Automated exposure control for dose reduction was used. Images obtained of the brain with no contrast. There is cerebral cortical atrophy. There is no mass effect or midline shift. No sign of intracranial hemorrhage. The calvarium is intact. Skull base is intact. There is hypodensity in the periventricul ar white matter likely due to chronic small vessel ischemia. IMPRESSION: Cerebral atrophy. No acute intracranial abnormality.
[2022-12-06 18:24] VITALS: BP 148/82; PULSE 80; RESP 18; TEMP 99.1
[2022-12-06 19:04] LABS: Appearance,Urine Clear (Clear); Bilirubin,Urine Negative (Negative); Blood,Urine Large (Negative); Color,Urine Yellow; Glucose,Urine (UA) Negative (Negative); Ketones,Urine 1+ (Negative); Leukocyte Esterase,Urine Negative (Negative); Mucus,Urine Rare /hpf; Nitrite,Urine Negative (Negative); Protein,Urine Trace (Negative); RBC,Urine >182 /hpf (0-5); Specific Gravity,Urine 1.013 (1.001-1.035); Urobilinogen,Urine <2.0 mg/dL (<2.0); WBC,Urine 1 /hpf (0-5)
== END 2022-12-06 19:22 | disposition home or self-care (01) ==
LOC: EC 15:36
DX: R42 Dizziness and giddiness (principal); R31.9 Hematuria, unspecified; N39.0 Urinary tract infection, site not specified; I10 Essential (primary) hypertension; I25.10 Atherosclerotic heart disease of native coronary artery without angina pectoris; I25.2 Old myocardial infarction; K21.9 Gastro-esophageal reflux disease without esophagitis; F41.9 Anxiety disorder, unspecified; E78.5 Hyperlipidemia, unspecified; F32.A Depression, unspecified; E11.9 Type 2 diabetes mellitus without complications; Z79.82 Long term (current) use of aspirin; Z79.84 Long term (current) use of oral hypoglycemic drugs; Z79.899 Other long term (current) drug therapy; Z87.891 Personal history of nicotine dependence; Z88.5 Allergy status to narcotic agent; Z88.8 Allergy status to other drugs, medicaments and biological substances
CPT/HCPCS: 36415; 70450; 80053; 81001; 84484; 85025; 93005; 99284

== ENCOUNTER 2022-12-17 21:11 | Emergency (ER) | payer OTHER, MEDICARE ==
[2022-12-17 21:16] VITALS: TEMP 97.9
[2022-12-17 21:38] VITALS: RESP 18
[2022-12-17] MEDS ORDERED: SODIUM CHLORIDE 0.9% 1,000 ML IV STA (21:53)
[2022-12-17] MEDS ORDERED: PANTOPRAZOLE 40 MG/10 ML VIAL IVP STA (21:55)
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
[2022-12-17 22:38] LABS: Basophils # (A) 0.1 k/uL (0-0.2); Basophils % (A) 1 %; Eosinophils # (A) 0.2 k/uL (0-0.7); Eosinophils % (A) 3 %; HCT 43.8 % (39.0-53.0); HGB 14.3 gm/dL (13.0-17.5); Lymphocytes # (A) 1.5 k/uL (1.0-4.8); Lymphocytes % (A) 18 %; MCHC 32.6 g/dL (31.0-37.0); MCV 85.8 fL (80.0-100.0); Mean Platelet Volume 8.3; Monocytes # (A) 0.5 k/uL (0-1.0); Monocytes % (A) 5 %; Neutrophils # (A) 5.9 k/uL (1.3-7.7); Neutrophils % (A) 70 %; Platelet Count 336 k/uL (150-450); RBC 5.11 m/uL (4.30-5.90); RDW 14.3 % (11.5-15.5); WBC 8.4 k/uL (3.8-10.6)
[2022-12-17 22:47] LABS: Albumin 3.7 g/dL (3.5-5.0); Calcium 8.8 mg/dL (8.4-10.2); Magnesium 2.2 mg/dL (1.6-2.3); Potassium 4.4 mmol/L (3.5-5.1); Prothrombin Time 10.2 sec (9.0-12.0); Total Bilirubin 0.3 mg/dL (0.2-1.3); Total Protein 6.9 g/dL (6.3-8.2)
[2022-12-17 22:48] LABS: Appearance,Urine Clear (Clear); Bilirubin,Urine Negative (Negative); Blood,Urine Negative (Negative); Color,Urine Yellow; Glucose,Urine (UA) Negative (Negative); Hyaline Casts,Urine 1 /lpf (0-2); Ketones,Urine Trace (Negative); Leukocyte Esterase,Urine Small (Negative); Mucus,Urine Moderate /hpf; Nitrite,Urine Negative (Negative); PH, Urine 5.5 (5.0-8.0); Protein,Urine Trace (Negative); RBC,Urine 3 /hpf (0-5); WBC,Urine 7 /hpf (0-5)
--- NOTE | 2022-12-17 23:18 | XR ---
EXAMINATION TYPE: XR chest 1V portable DATE OF EXAM: 12/17/2022 COMPARISON: NONE HISTORY: Cough. Hemoptysis. TECHNIQUE: Single view FINDINGS: Heart is enlarged. There is some mild linear density at the lung bases. No obvious heart fa ilure. There are no hilar masses. No pleural effusion. IMPRESSION: There is some mild linear infiltrate or atelectasis at the lung bases which is increased compared to exam no heart failure.
--- NOTE | 2022-12-17 23:50 | CT ---
EXAMINATION TYPE: CT abdomen pelvis w con DATE OF EXAM: 12/17/2022 COMPARISON: None HISTORY: HEMOPTYSIS CT DLP: 750.1 mGycm Automated exposure control for dose reduction was used. CONTRAST: Performed with IV Contrast, patient injected with 100 mL of Isovue 370. Images obtained from the diaphragm to the floor the pelvis with the IV contrast Lung bases show some pleural thickening and linear density right lung base. No pleural effusion. Ther e is subsegmental atelectasis left lung base. There is hiatal hernia. Heart size is fairly normal. There is a 5 cm ring enhancing mixed density lesion in the lateral right lobe of the liver. Spleen is intact. No evidence of pancreatic mass. There is extensive vascular calcification. Gallbladder appea rs absent. There is no adrenal mass. Kidneys show satisfactory contrast opacification. No hydronephrosis. Delaye d images show normal renal excretion. No retroperitoneal adenopathy. There are multiple bilateral serafin al cortical cysts that measure up to 3 cm. The bladder distends smoothly. No inguinal hernia. There i s some prosthetic calcification. Prostate measures 5.9 cm. No free fluid in the pelvis. There are sigmoid diverticula without evidence of diverticulitis. Appendix is posterior and appears n ormal. There is no mesenteric edema. No ascites or free air. No sign of a bowel obstruction. The lumbar vert ebrae have normal alignment. There is vacuum disc at L5-S1. No compression fracture. Bony pelvis is i ntact. The hip joints are intact. Sacroiliac joints are intact. IMPRESSION: Moderate-sized hiatal hernia. Pleural thickening and atelectasis at the lung bases and more on the ri ght side. Low density multicentric mass in the lateral right lobe of the liver with peripheral enhancement that raises the possibility of liver abscess or tumor. In this area on the previous CT scan from 2 years ago there is only an 8 mm small rounded fluid density. This does not have an appearance of a hemangio ma. Follow-up is recommended. There is significant clearing of the pleural fluid and infiltrate right lung base compared to old exa m. Enlarged prostate. Sigmoid diverticulosis.
--- NOTE | 2022-12-18 00:03 | CT ---
EXAMINATION TYPE: CT chest angio for PE DATE OF EXAM: 12/17/2022 COMPARISON: None HISTORY: ELEVATED D DIMER, HEMOPTYSIS CT DLP: 590.6 mGycm Automated exposure control for dose reduction was used. CONTRAST: Performed with IV Contrast, patient injected with 100 mL of Isovue 370. Images obtained from the thoracic inlet to the diaphragm with the IV contrast. Heart is enlarged. There is large hiatal hernia. There is some linear infiltrate and atelectasis left and right lung bases. No pleural effusion. No pericardial effusion. There is no mediastinal adenopathy. There is normal contrast opacification of the pulmonary arteries. No filling defect. There is no evidence of a pulmonary mass. The thoracic spine is intact. No compression fracture. Ster num is intact. IMPRESSION: No evidence of pulmonary embolism. Linear infiltrate and atelectasis at both lung bases. Moderate siz ed hiatal hernia.
[2022-12-18 00:25] VITALS: BP 168/106; PULSE 61
== END 2022-12-18 00:35 | disposition home or self-care (01) ==
LOC: EC 21:11
DX: R04.2 Hemoptysis (principal); R16.0 Hepatomegaly, not elsewhere classified; K44.9 Diaphragmatic hernia without obstruction or gangrene; E11.9 Type 2 diabetes mellitus without complications; I10 Essential (primary) hypertension; I25.10 Atherosclerotic heart disease of native coronary artery without angina pectoris; I25.2 Old myocardial infarction; J44.9 Chronic obstructive pulmonary disease, unspecified; E78.5 Hyperlipidemia, unspecified; E07.9 Disorder of thyroid, unspecified; F32.A Depression, unspecified; F41.9 Anxiety disorder, unspecified; K21.9 Gastro-esophageal reflux disease without esophagitis; Z20.822 Contact with and (suspected) exposure to COVID-19; Z79.84 Long term (current) use of oral hypoglycemic drugs; Z79.82 Long term (current) use of aspirin; Z79.899 Other long term (current) drug therapy; Z87.891 Personal history of nicotine dependence; Z95.5 Presence of coronary angioplasty implant and graft; Z88.5 Allergy status to narcotic agent; Z88.8 Allergy status to other drugs, medicaments and biological substances
CPT/HCPCS: 36415; 93005; 85379; 80053; 83605; 83735; 85025; 85610; 85730; 81001; 87636; 71045; 71275; 74177; 99285; 96374; 96361; C9113; Q9967

== ENCOUNTER → 2022-12-25 | Outpatient (CLI) | payer OTHER, MEDICARE ==
[2022-12-25 12:34] LABS: Basophils # (A) 0.1 k/uL (0-0.2); Basophils % (A) 1 %; Eosinophils # (A) 0.1 k/uL (0-0.7); Eosinophils % (A) 1 %; HCT 48.4 % (39.0-53.0); HGB 15.5 gm/dL (13.0-17.5); Lymphocytes # (A) 1.4 k/uL (1.0-4.8); Lymphocytes % (A) 21 %; MCH 27.6 pg (25.0-35.0); MCHC 31.9 g/dL (31.0-37.0); MCV 86.6 fL (80.0-100.0); Mean Platelet Volume 8.5; Monocytes # (A) 0.3 k/uL (0-1.0); Monocytes % (A) 4 %; Neutrophils # (A) 4.7 k/uL (1.3-7.7); Neutrophils % (A) 71 %; Platelet Count 384 k/uL (150-450); RBC 5.59 m/uL (4.30-5.90); RDW 14.3 % (11.5-15.5); WBC 6.7 k/uL (3.8-10.6)
== END | disposition home or self-care (01) ==
LOC: LABWHC1 11:47
DX: K92.0 Hematemesis (principal)
CPT/HCPCS: 36415; 85025

== ENCOUNTER → 2023-02-21 | Outpatient (CLI) | payer MEDICARE ==
[2023-02-21 14:51] LABS: ALT 14 U/L (10-49); AST 17 U/L (14-35); Chol/HDL Ratio 2.86 Ratio; LDL Cholesterol,Calculated 54.7 mg/dL (0.0-131.0)
== END | disposition home or self-care (01) ==
LOC: LABWHC1 07:11
PROVIDERS: ATTEND Internal Medicine Cardiovascular Disease
DX: E78.2 Mixed hyperlipidemia (principal)
CPT/HCPCS: 36415; 80061; 84450; 84460

== ENCOUNTER 2023-08-31 10:21 | Emergency (ER) | payer MEDICARE ==
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
--- NOTE | 2023-08-31 11:37 | CT ---
EXAMINATION TYPE: CT brain cspine wo con DATE OF EXAM: 08/31/2023 COMPARISON: Brain 12/06/2022 HISTORY: 78-year-old male pain after fall x2 weeks ago. Increased confusion and dizziness CT DLP: 1444.5 mGycm Automated exposure control for dose reduction was used. Technique: Examination of the head was done in axial plane without intravenous contrast. Coronal and sagittal reconstructions performed. CT of the cervical spine was obtained in axial plane without intravenous injection of contrast mater ial. Coronal and sagittal reformatted images were obtained from the axial views for evaluation of f ractures, spinal alignment and canal. FINDINGS: Head: Unchanged CSF space superior left frontal parietal junction measuring 3.0 x 2.3 x 1.6 cm. Possible sm all arachnoid cyst. Some punctate dural calcifications along the left cerebral convexity likely dystrophic. There is moderate patchy white matter hypodensity in both cerebral hemispheres. No evidence for acute intracranial hemorrhage, acute ischemic change, mass effect, midline shift. No effacement of cerebral sulci or basal subarachnoid cisterns. Mckenzie-white matter differentiation is antoine ntained. Partially empty sella. Mild mucosal thickening maxillary sinuses and trace in the ethmoid air cells. Orbits and globes are i ntact. Mastoid air cells well pneumatized. Cervical spine: No craniocervical junction of the body, predental space widening, or prevertebral soft tissue swellin g. Degenerative change of the C1 dens articulation. There is moderate spondylotic change throughout. Degenerative grade 1 anterolisthesis C5-C6 and C7-T1. Remaining alignment is maintained. No acute fracture seen of the cervical spine. No spinal canal stenosis apparent by the period At C3-C4, there is [id number] right neuroforaminal stenosis. At C4-C5, there is moderate right neuroforaminal stenosis. At C5-C6, there is moderate neuroforaminal stenosis. At C6-C7, there is mild left foraminal stenosis. Sagittal and coronal reformatted images confirm above findings. COMBINED IMPRESSION: 1. Similar moderate burden of chronic small vessel ischemic disease. Similar possible small 3.0 cm ar achnoid cyst along the left superior frontoparietal junction. No acute intracranial abnormality seen. 2. No acute fracture of the cervical spine. Moderate spondylotic change with degenerative grade 1 ant erolisthesis C5-C6 and C7-T1.
[2023-08-31 11:53] LABS: Basophils # (A) 0.1 k/uL (0-0.2); Basophils % (A) 1 %; Eosinophils # (A) 0.2 k/uL (0-0.7); Eosinophils % (A) 5 %; HCT 46.6 % (39.0-53.0); HGB 14.8 gm/dL (13.0-17.5); Hypochromasia Slight; Lymphocytes # (A) 0.7 k/uL (1.0-4.8); Lymphocytes % (A) 12 %; MCH 27.8 pg (25.0-35.0); MCHC 31.7 g/dL (31.0-37.0); MCV 87.5 fL (80.0-100.0); Mean Platelet Volume 9.9; Monocytes # (A) 0.3 k/uL (0-1.0); Monocytes % (A) 6 %; Neutrophils # (A) 3.9 k/uL (1.3-7.7); Neutrophils % (A) 73 %; Platelet Count 204 k/uL (150-450); RBC 5.33 m/uL (4.30-5.90); WBC 5.4 k/uL (3.8-10.6)
[2023-08-31 12:10] LABS: African American GFR (CKD) >90 (>60 ml/min/1.73 sqM); Anion Gap 9 mmol/L; Blood Urea Nitrogen 14 mg/dL (9-20); Calcium 8.9 mg/dL (8.4-10.2); Carbon Dioxide 21 mmol/L (22-30); Chloride 110 mmol/L (98-107); Glucose 174 mg/dL (74-99); Non-African American GFR(CKD) 84 (>60 ml/min/1.73 sqM); Potassium 4.1 mmol/L (3.5-5.1); Sodium 140 mmol/L (137-145)
[2023-08-31 12:40] VITALS: BP 173/90; PULSE 55; RESP 16; TEMP 97.8
== END 2023-08-31 12:44 | disposition home or self-care (01) ==
LOC: EC 10:21
DX: S06.0X0A Concussion without loss of consciousness, initial encounter (principal); R40.2410 Glasgow coma scale score 13-15, unspecified time; R00.1 Bradycardia, unspecified; E11.9 Type 2 diabetes mellitus without complications; I25.10 Atherosclerotic heart disease of native coronary artery without angina pectoris; E78.5 Hyperlipidemia, unspecified; I10 Essential (primary) hypertension; I25.2 Old myocardial infarction; F41.9 Anxiety disorder, unspecified; F32.A Depression, unspecified; E07.9 Disorder of thyroid, unspecified; K21.9 Gastro-esophageal reflux disease without esophagitis; Z79.890 Hormone replacement therapy; Z79.84 Long term (current) use of oral hypoglycemic drugs; Z79.899 Other long term (current) drug therapy; Z87.891 Personal history of nicotine dependence; Z88.5 Allergy status to narcotic agent; Z88.8 Allergy status to other drugs, medicaments and biological substances; W19.XXXA Unspecified fall, initial encounter
CPT/HCPCS: 36415; 70450; 72125; 80048; 85025; 93005; 99284

== ENCOUNTER → 2024-02-13 | Outpatient (CLI) | payer OTHER, MEDICARE ==
[2024-02-13 15:04] LABS: ALT 13 U/L (10-49); AST 19 U/L (14-35); Chol/HDL Ratio 3.06 Ratio; LDL Cholesterol,Calculated 68.7 mg/dL (0.0-131.0)
== END | disposition home or self-care (01) ==
LOC: LABWHC1 09:40
PROVIDERS: ATTEND Internal Medicine Cardiovascular Disease
DX: E78.2 Mixed hyperlipidemia (principal)
CPT/HCPCS: 36415; 80061; 84450; 84460

== ENCOUNTER 2024-02-29 07:33 | Inpatient (IN) | payer OTHER, MEDICARE ==
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
[2024-02-29 08:37] LABS: Basophils # (A) 0.1 k/uL (0-0.2); Basophils % (A) 1 %; Eosinophils # (A) 0.2 k/uL (0-0.7); Eosinophils % (A) 3 %; HCT 47.5 % (39.0-53.0); HGB 15.1 gm/dL (13.0-17.5); Lymphocytes # (A) 0.7 k/uL (1.0-4.8); Lymphocytes % (A) 10 %; MCH 29.1 pg (25.0-35.0); MCHC 31.8 g/dL (31.0-37.0); MCV 91.4 fL (80.0-100.0); Mean Platelet Volume 8.8; Monocytes # (A) 0.4 k/uL (0-1.0); Monocytes % (A) 5 %; Neutrophils # (A) 6.2 k/uL (1.3-7.7); Neutrophils % (A) 81 %; Platelet Count 220 k/uL (150-450); RDW 14.1 % (11.5-15.5); WBC 7.7 k/uL (3.8-10.6)
[2024-02-29 08:50] LABS: ALT 12 U/L (4-49); AST 21 U/L (17-59); African American GFR (CKD) >90 (>60 ml/min/1.73 sqM); Albumin 3.6 g/dL (3.5-5.0); Alkaline Phosphatase 93 U/L (38-126); Anion Gap 4 mmol/L; Blood Urea Nitrogen 14 mg/dL (9-20); Calcium 8.6 mg/dL (8.4-10.2); Carbon Dioxide 24 mmol/L (22-30); Chloride 110 mmol/L (98-107); Glucose 128 mg/dL (74-99); Magnesium 1.8 mg/dL (1.6-2.3); Non-African American GFR(CKD) 88 (>60 ml/min/1.73 sqM); Sodium 138 mmol/L (137-145); Total Protein 6.2 g/dL (6.3-8.2)
[2024-02-29 08:55] LABS: Partial Thromboplastin Time 24.7 sec (22.0-30.0); Prothrombin Time 10.9 sec (10.0-12.5)
[2024-02-29] MEDS: SODIUM CHLORIDE 0.9% 500 ML 500 ML IV STA (09:07)
[2024-02-29] MEDS: ASPIRIN 81 MG PO STA (09:08)
[2024-02-29] MEDS: NITROGLYCERIN OINT 1 INCH/GM PACKET TOPICAL STA (09:08)
--- NOTE | 2024-02-29 09:41 | XR ---
EXAMINATION TYPE: XR chest 2V DATE OF EXAM: 02/29/2024 9:29 AM CLINICAL INDICATION:Male, 78 years old with history of Chest Pain; [facility] COMPARISON: Chest radiographs from 12/17/2022 TECHNIQUE: XR chest 2V Frontal and lateral views of the chest. FINDINGS: Lungs/Pleura: There is no evidence of pleural effusion, focal consolidation, or pneumothorax. Pulmonary vascularity: Unremarkable. Heart/mediastinum: Cardiomediastinal silhouette is prominent in size. Moderate hiatal hernia projects over the lower mediastinum. Musculoskeletal: No acute osseous pathology. Other findings: None Lines/Tubes: IMPRESSION: 1. Low lung volumes with a generalized hazy appearance which could represent atelectasis versus pulm onary edema correlate with serum BNP. 2. Qkrkq-wj-xcapownx hiatal hernia.
[2024-02-29] MEDS: ACETAMINOPHEN TAB 500 MG TAB PO STA (10:36)
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
[2024-02-29] MEDS ORDERED: NALOXONE 0.4 MG/ML 1 ML VIAL IVP PRN (11:05)
[2024-02-29] MEDS ORDERED: ONDANSETRON 4 MG/2 ML VIAL IVP PRN (11:05)
[2024-02-29] MEDS ORDERED: DEXTROSE 50% SYRINGE 50 ML IVP PRN ×2 (11:08)
[2024-02-29] MEDS ORDERED: NITROGLYCERIN SL TABS 0.4 MG TAB SUBLINGUAL PRN (11:09)
[2024-02-29 12:01] LABS: Glucose,Whole Blood 102 mg/dL (70-110)
[2024-02-29] MEDS: INSULIN ASPART (NovoLOG) 100 UNIT/ML VIAL SQ SCH (12:17)
[2024-02-29] MEDS: NITROGLYCERIN OINT 1 INCH/GM PACKET TOPICAL SCH (12:17)
[2024-02-29 17:26] LABS: Glucose,Whole Blood 147 mg/dL (70-110)
[2024-02-29] MEDS: HYDROcodone/APAP 5-325MG 1 EACH TAB PO PRN (18:02)
[2024-02-29 20:29] LABS: Glucose,Whole Blood 112 mg/dL (70-110)
[2024-02-29] MEDS: NON FORMULARY DRUG (Rosuvastatin 20 MG Tablet) PO SCH (20:33)
[2024-02-29] MEDS: METOPROLOL TARTRATE 50 MG TAB PO SCH (20:33)
[2024-02-29] MEDS: QUEtiapine 50 MG TAB PO SCH (20:33)
[2024-02-29] MEDS: traZODone HCL 50 MG TAB PO SCH (20:33)
[2024-02-29] MEDS: FERROUS SULFATE 325 MG TAB PO SCH (20:33)
[2024-03-01 06:02] LABS: Glucose,Whole Blood 115 mg/dL (70-110)
[2024-03-01] MEDS: PANTOPRAZOLE 40 MG TABLET PO SCH (06:17)
[2024-03-01] MEDS: LEVOTHYROXINE 25 MCG TAB PO SCH (06:17)
[2024-03-01] MEDS ORDERED: ASPIRIN 325 MG TAB PO SCH (09:00)
[2024-03-01 10:21] LABS: Chol/HDL Ratio 3.49 Ratio; LDL Cholesterol,Calculated 53.9 mg/dL (0.0-131.0)
[2024-03-01] MEDS: CYANOCOBALAMIN 500 MCG TAB PO SCH (10:21)
[2024-03-01] MEDS: TAMSULOSIN 0.4 MG CAP.ER.24H PO SCH (10:21)
[2024-03-01] MEDS: LOSARTAN 50 MG TAB PO SCH (10:22)
[2024-03-01] MEDS: CITALOPRAM HYDROBROMIDE 10 MG TAB PO SCH (10:22)
[2024-03-01] MEDS: ENOXAPARIN 40 MG/0.4 ML SYRINGE SQ SCH (10:22)
[2024-03-01] MEDS: ASPIRIN 81 MG PO SCH (10:22)
[2024-03-01] MEDS: NON FORMULARY DRUG (Mirabegron [Myrbetriq] 50 MG Tab.Er.24h) PO SCH (10:23)
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
[2024-03-01 12:44] LABS: Glucose,Whole Blood 164 mg/dL (70-110)
[2024-03-01] MEDS: hydroCHLOROthiazide 25 MG TAB PO SCH (12:54)
[2024-03-01] MEDS: amLODIPine 2.5 MG TAB PO SCH (12:54)
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
--- NOTE | 2024-03-01 13:49 | CT ---
EXAMINATION TYPE: CT chest angio for PE CT DLP: 455.70 mGycm, Automated exposure control for dose reduction was used. DATE OF EXAM: 03/01/2024 1:35 PM COMPARISON: 11/19/2022 CLINICAL INDICATION:Male, 78 years old with history of Elevated d-dimer; elevated d-dimer TECHNIQUE/CONTRAST: CTA scan of the thorax is performed with IV Contrast, patient injected with 85ml mL of Isovue 370, AK P images are created and reviewed these are created on a separate workstation.. FINDINGS: Pulmonary Artery: There is no evidence for a filling defect within the pulmonary vasculature to sugge st acute pulmonary embolism. The pulmonary artery is of normal size. Lungs/Pleura: No evidence of focal consolidation, pleural effusion or pneumothorax. Airway: Large airways are patent. Heart: The heart is mildly enlarged for size. Moderate atherosclerosis of the coronary arteries. Vasculature: No evidence of aortic aneurysm. Mediastinum: No gross evidence of adenopathy. Moderate hiatal hernia. Musculoskeletal: No acute osseous abnormalities Soft Tissues/lymph nodes: Unremarkable. Lower neck: No significant findings. Upper Abdomen: Bilateral renal cortical cysts.777 IMPRESSION: 1. No evidence of pulmonary embolism. 2. Chronic lung changes. 3. Mild cardiomegaly with moderate coronary artery atherosclerosis. 4. Moderate hiatal hernia.
--- NOTE | 2024-03-01 15:02 | CA ---
Transthoracic Echo Report Name: Rich Gonzalez Age: 78 Gender: M : 1945 Exam Date: 03/01/2024 10:41 Exam Location: [facility] Ht (in): 69 Wt (lb): 180 Ordering Physician: Raul Dumont Attending/Referring Phys: Compositor Apprentice Natasha Bell RDCS Procedure CPT: Indications: Assess structure and function Cardiac Hx: Technical Quality: Fair Contrast 1: Total Dose (mL): Contrast 2: Total Dose (mL): MEASUREMENTS (Male / Female) Normal Values 2D ECHO LV Diastolic Diameter PLAX 4.1 cm 4.2 - 5.9 / 3.9 - 5.3 cm LV Systolic Diameter PLAX 3.4 cm IVS Diastolic Thickness 2.0 cm 0.6 - 1.0 / 0.6 - 0.9 cm LVPW Diastolic Thickness 1.9 cm 0.6 - 1.0 / 0.6 - 0.9 cm LV Relative Wall Thickness 0.9 RV Internal Dim ED PLAX 3.2 cm LVOT Diameter 2.0 cm LV Diastolic Volume MOD BP 142.6 cm??? 67 - 155 / 56 - 104 cm??? LV Systolic Volume MOD BP 77.1 cm??? 22 - 58 / 19 - 49 cm??? LV Ejection Fraction MOD BP 46.0 % >= 55 % LV Cardiac Index MOD BP 1893.4 cm???/min???m??? LV Diastolic Volume MOD 4C 136.9 cm??? LV Systolic Volume MOD 4C 72.2 cm??? LV Ejection Fraction MOD 4C 47.3 % LV Cardiac Index MOD 4C 1870.4 cm???/min???m??? LV Diastolic Length 4C 8.3 cm LV Systolic Length 4C 6.6 cm LV Diastolic Volume MOD 2C 136.8 cm??? LV Systolic Volume MOD 2C 79.7 cm??? LV Ejection Fraction MOD 2C 41.7 % LV Cardiac Index MOD 2C 1650.2 cm???/min???m??? LV Diastolic Length 2C 7.6 cm LV Systolic Length 2C 6.8 cm LA Volume 68.1 cm??? 18 - 58 / 22 - 52 cm??? LA Volume Index 33.9 cm???/m??? 16 - 28 cm???/m??? M-MODE Aortic Root Diameter MM 3.4 cm LA Systolic Diameter MM 4.0 cm LA Ao Ratio MM 1.2 AV Cusp Separation MM 2.0 cm DOPPLER AV Peak Velocity 132.0 cm/s AV Peak Gradient 7.0 mmHg AV Mean Velocity 90.8 cm/s AV Mean Gradient 3.7 mmHg AV Velocity Time Integral 24.9 cm AI Peak Velocity 298.5 cm/s AI Peak Gradient 35.7 mmHg AI Pressure Half Time 755.1 ms LVOT Peak Velocity 84.1 cm/s LVOT Peak Gradient 2.8 mmHg LVOT Velocity Time Integral 15.3 cm LVOT Stroke Volume 49.7 cm??? LVOT Stroke Volume Index 25.2 ml/m??? LVOT Cardiac Index 1436.2 cm???/min???m??? AV Area Cont Eq vti 2.0 cm??? AV Area Cont Eq pk 2.1 cm??? MV Area PHT 4.2 cm??? Mitral E Point Velocity 55.9 cm/s Mitral A Point Velocity 100.7 cm/s Mitral E to A Ratio 0.6 MV Deceleration Time 182.1 ms MV E' Velocity 3.0 cm/s Mitral E to MV E' Ratio 18.4 FINDINGS Left Ventricle Severely increased septal wall thickness. Moderately increased left ventricular systolic volume. Mildly decreased left ventricular ejection fraction. Reduced global left ventricular systolic function. Left ventricular ejection fraction is estimated at 40-45 %. Grade 1 diastolic dysfunction. Right Ventricle Normal right ventricular size and function. Right ventricular systolic pressure within normal limits. Right Atrium Normal right atrial size. Left Atrium Mildly increased left atrial volume. Mildly increased left atrial area. Mitral Valve Structurally normal mitral valve. Mitral valve thickened. Moderate mitral annular calcification. Mild mitral regurgitation. Aortic Valve Trileaflet aortic valve. No aortic stenosis. Mild aortic regurgitation. Tricuspid Valve Structurally normal tricuspid valve. Mild tricuspid regurgitation. Pulmonic Valve Structurally normal pulmonic valve. Trace pulmonic regurgitation. Pericardium No pericardial effusion. Aorta Normal size aortic root and proximal ascending aorta. CONCLUSIONS Impaired LV function with EF between 40-45% Mild mitral regurgitation Mild aortic regurgitation Previewed by: Dr. Spencer Johns MD (Electronically Signed) Final Date: 01 March 2024 15:00
[2024-03-01 17:13] LABS: Glucose,Whole Blood 116 mg/dL (70-110)
[2024-03-01 20:13] LABS: Glucose,Whole Blood 131 mg/dL (70-110)
[2024-03-02 05:47] LABS: Glucose,Whole Blood 125 mg/dL (70-110)
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
--- NOTE | 2024-03-02 11:49 | P.PN ---
Subjective Progress Note Date: 03/02/24 The patient is a pleasant 78-year-old gentleman who sees Dr. Hurtado on regular basis with a past medical history significant for CAD with a prior stenting including PCI of the left circumflex/OM in 2016 as well as hypertension and dyslipidemia and diabetes. The patient presented to the hospital complaining of chest discomfort. For the last few weeks he has been struggling with elevated blood pressure in spite of being compliant with the medications and compliant with low-sodium diet but last night he woke up from sleep complaining of chest discomfort. Discomfort was in the middle of the chest as a squeezing sensation with no radiation to the arms or neck or shoulders or back and with associated symptoms of shortness of breath. No sweating. No syncope. He decided to come to the emergency department. He was admitted and underwent a troponin came in to be unremarkable for ischemia and also EKG showed sinus mechanism with ST changes in the inferolateral leads seems to be the same as in 2022. Currently his chest pain-free but he is on nitro patch. He states sometimes that the chest discomfort is worse with taking a deep breath. He underwent an echo which is still pending. Examination is remarkable for stable vital signs with regular rate and rhythm and soft systolic murmur and clear breathing sounds bilaterally and no edema was noted and the abdomen is soft March 02, 2024 The patient was seen and evaluated this morning. He did have an episode of chest discomfort earlier this morning and has mild ongoing chest discomfort right now. The pressure appears to be under better control after we adjusted the medications yesterday and after adding hydrochlorothiazide to the current medical regimen and adding amlodipine. The pressure is still consistent with stage II hypertension instead of hypertension crisis with him going to add isosorbide mononitrate to the current medical regimen. Proceed with coronary angiogram as soon as possible. Examination is remarkable for elevated blood pressure with regular rate and rhythm and distant heart sounds and clear breathing sounds bilaterally and no edema was noted Assessment Chest discomfort CAD with prior revascularization Multiple comorbid conditions including diabetes and hypertension and dyslipidemia Plan Continue the current medical regimen Proceed with coronary angiogram Add oral nitrate to the current medical regimen Objective - Vital Signs Vital signs: Vital Signs Temp 98.2 F 03/02/24 07:10 Pulse 87 03/02/24 07:10 Resp 17 03/02/24 07:10 BP 155/82 03/02/24 07:10 Pulse Ox 91 L 03/02/24 07:10 FiO2 Intake & Output 03/01/24 03/02/24 03/02/24 18:59 06:59 18:59 Intake Total 236 Balance 236 Intake: Oral 236 Other: Voiding Method Toilet Toilet # Voids 1 2 - Labs CBC & Chem 7: 02/29/24 08:32 02/29/24 08:32 Labs: Abnormal Lab Results - Last 24 Hours (Table) 03/01/24 03/01/24 03/01/24 Range/Units 11:46 12:43 17:12 D-Dimer 0.91 H (<0.60) mg/L FEU POC Glucose (mg/dL) 164 H 116 H (70-110) mg/dL 03/01/24 03/02/24 Range/Units 20:03 05:46 D-Dimer (<0.60) mg/L FEU POC Glucose (mg/dL) 131 H 125 H (70-110) mg/dL
[2024-03-02 12:03] LABS: Glucose,Whole Blood 112 mg/dL (70-110)
[2024-03-02] MEDS: ISOSORBIDE MONONITRATE ER 30 MG TAB.ER.24H PO SCH (12:06)
[2024-03-02] MEDS ORDERED: ASPIRIN 81 MG ONE (13:58)
[2024-03-02] MEDS ORDERED: LIDOCAINE 1% INJ 10MG/ML (20 ML MDV) ONE (13:59)
[2024-03-02] MEDS ORDERED: VERAPAMIL 2.5 MG/ML 2 ML AMP ONE (13:59)
[2024-03-02] MEDS: SODIUM CHLORIDE 0.9% 1,000 ML IV ONE (14:04)
[2024-03-02] MEDS: ASPIRIN 81 MG PO ONE (14:05)
[2024-03-02] MEDS ORDERED: HEPARIN SODIUM 1,000 UN/ML (10ML VL) ONE (14:08)
[2024-03-02] MEDS: LIDOCAINE 1% INJ 10MG/ML (20 ML MDV) SQ ONE (14:17)
[2024-03-02] MEDS: MIDAZOLAM 2 MG/2 ML VIAL IVP ONE ×2 (14:18→14:28)
[2024-03-02] MEDS: IOPAMIDOL-370 100ML BTL INJ ONE (14:39)
[2024-03-02] MEDS ORDERED: RX INFO: IV CONTRAST WAS GIVEN 1 EACH MISC MISCELLANE PRN (14:53)
[2024-03-02] MEDS: SODIUM CHLORIDE 0.9% 1,000 ML IV SCH (14:58)
--- NOTE | 2024-03-02 14:58 | P.PCN ---
Date of Procedure: 03/02/24 Operative Findings: CARDIAC CATHETERIZATION PERFORMING PHYSICIAN: Spencer Johns MD, RPVI PROCEDURE PERFORMED: 1. Selective right and left coronary angiogram 2. Left heart catheterization 3. Ultrasound-guided access of the right common femoral artery and right common femoral artery angiogram INDICATION: Chest discomfort concerning for unstable angina in this 78-year-old gentleman with known CAD and prior stenting of the RCA and LCx who continues to have ongoing chest pain COMPLICATION: None APPROACH: Right common femoral artery LEVEL OF SEDATION: Moderate with sedation in length of 13 minutes PROCEDURE DESCRIPTION: After obtaining an informed consent, the patient was brought to cardiac environmental laboratory technician. Local anesthesia was performed using lidocaine subcutaneously. The right common femoral artery was cannulated using Seldinger technique, under ultrasound guidance and the guidewire passed easily, following that we advanced a 6 [place] sheath dilator assembly, the wire and dilator were removed and sheath was flushed. Selective right and left coronary angiogram using a 6-Ugandan JR4 and JL catheters. Following that we did left heart catheterization using 6-Ugandan pigtail catheter. The procedure was completed there was no complication. SELECTIVE CORONARY ANGIOGRAM: The right coronary artery: Large caliber vessel and a dominant vessel. The mid RCA is stented and the stent is patent. Proximal to the stented segment in the proximal to mid RCA t here is intermediate lesion appears to be in the range of 60% has not changed since 2019. The RCA distally has mild disease only and bifurcates into PDA and PLV branches and both have mild to moderate diffuse disease Left main: Has mild disease only. Bifurcates into an LCx and LAD The left circumflex: Large caliber vessel nondominant vessel. Gives rise into a large OM branch which is stented and the stent is patent The left anterior descending artery: The LAD has mild to moderate diffuse disease with no high-grade stenosis was identified HEMODYNAMICS: The LVEDP was 12 mmHg with no significant gradient across aortic valve CONCLUSION: 1. Patent stent in the first obtuse marginal branch of the left circumflex 2. Patent stent in the mid RCA. Intermediate disease involving the proximal RCA has not changed since 2019 3. Normal left-sided filling pressure POSTPROCEDURE MANAGEMENT: Given the above I advise maximize medical treatment and aggressive blood pressure control and aggressive cholesterol control and follow-up with the patient. Consider FFR of the RCA if the patient remains symptomatic in spite of the above
[2024-03-02 17:24] LABS: Glucose,Whole Blood 204 mg/dL (70-110)
[2024-03-02 20:22] LABS: Glucose,Whole Blood 188 mg/dL (70-110)
[2024-03-03 06:01] LABS: Glucose,Whole Blood 107 mg/dL (70-110)
[2024-03-03] MEDS: VALSARTAN 160 MG TAB PO SCH (09:35)
[2024-03-03 10:16] LABS: HCT 45.6 % (39.6-50.0); HGB 14.8 g/dL (13.0-17.0); MCH 29.1 pg (27.0-32.0); MCHC 32.5 g/dL (32.0-37.0); MCV 89.8 FL (80.0-97.0); Mean Platelet Volume 11.5 FL (9.5-12.2); NRBC Per 100 WBC 0 X 10*3/uL (0.00-0.01); Platelet Count 233 X 10*3/uL (140-440); RBC 5.08 X 10*6/uL (4.40-5.60); RDW 14.1 % (11.5-14.5); WBC 6.13 X 10*3/uL (4.50-10.00)
[2024-03-03 10:38] LABS: ALT 10 U/L (10-49); AST 20 U/L (14-35); Albumin 3.8 g/dL (3.8-4.9); Albumin/Globulin Ratio 1.65 Ratio (1.60-3.17); Alkaline Phosphatase 87 U/L (41-126); Calcium 8.8 mg/dL (8.7-10.3); Carbon Dioxide 21.7 mmol/L (21.6-31.8); Chloride 102 mmol/L (96-109); Globulin 2.3 g/dL (1.6-3.3); Glucose 121 mg/dL (70-110); Potassium 3.9 mmol/L (3.5-5.5); Sodium 137 mmol/L (135-145); Total Bilirubin 0.5 mg/dL (0.3-1.2); Total Protein 6.1 g/dL (6.2-8.2)
[2024-03-03] MEDS ORDERED: ALPRAZolam 0.25 MG TAB PO PRN (10:39)
[2024-03-03] MEDS ORDERED: NITROGLYCERIN SL TABS 0.4 MG TAB SUBLINGUAL PRN (10:39)
--- NOTE | 2024-03-03 10:47 | P.PN ---
Subjective Progress Note Date: 03/03/24 The patient is a pleasant 78-year-old gentleman who sees Dr. Hurtado on regular basis with a past medical history significant for CAD with a prior stenting including PCI of the left circumflex/OM in 2016 as well as hypertension and dyslipidemia and diabetes. The patient presented to the hospital complaining of chest discomfort. For the last few weeks he has been struggling with elevated blood pressure in spite of being compliant with the medications and compliant with low-sodium diet but last night he woke up from sleep complaining of chest discomfort. Discomfort was in the middle of the chest as a squeezing sensation with no radiation to the arms or neck or shoulders or back and with associated symptoms of shortness of breath. No sweating. No syncope. He decided to come to the emergency department. He was admitted and underwent a troponin came in to be unremarkable for ischemia and also EKG showed sinus mechanism with ST changes in the inferolateral leads seems to be the same as in 2022. Currently his chest pain-free but he is on nitro patch. He states sometimes that the chest discomfort is worse with taking a deep breath. He underwent an echo which is still pending. Examination is remarkable for stable vital signs with regular rate and rhythm and soft systolic murmur and clear breathing sounds bilaterally and no edema was noted and the abdomen is soft March 02, 2024 The patient was seen and evaluated this morning. He did have an episode of chest discomfort earlier this morning and has mild ongoing chest discomfort right now. The pressure appears to be under better control after we adjusted the medications yesterday and after adding hydrochlorothiazide to the current medical regimen and adding amlodipine. The pressure is still consistent with stage II hypertension instead of hypertension crisis with him going to add isosorbide mononitrate to the current medical regimen. Proceed with coronary angiogram as soon as possible. Examination is remarkable for elevated blood pressure with regular rate and rhythm and distant heart sounds and clear breathing sounds bilaterally and no edema was noted 03/03 Yesterday, patient underwent cardiac catheterization with Dr. Johns that revealed patent stent in the first obtuse marginal branch of the left circumflex, patent stent in the mid RCA. Intermediate disease involving the proximal RCA has not changed since 2019. Normal left-sided filling pressures. If patient continues to have chest pain, consider FFR of the RCA. Patient presently does not complain of any chest pain but he ambulated later in the morning and developed a burning type chest pain. EKG was repeated. Medication changes were made to address blood pressure fluctuations. Patient states that at home his blood pressure has been running 170s. Physical Examination Gen: This is a 78-year-old male in no acute distress LUNGS: Clear to auscultation. No wheezes or rhonchi. No intercostal retractions. HEART: Regular rate and rhythm. Distant heart sounds. No murmur. EXTREMITIES: No pedal edema. No calf tenderness. NEUROLOGICAL: Patient is awake, alert and oriented. Assessment Chest discomfort CAD with prior revascularization Multiple comorbid conditions including diabetes and hypertension and dyslipidemia Plan Continue the current medical regimen The following medication changes have been made: Discontinue Imdur, discontinue losartan Start patient on valsartan 160 mg twice daily Proceed with FFR and possible PCI of the RCA, scheduled for Sunday with Dr. Johns Further recommendations pending patient's course Nurse practitioner note has been reviewed, I agree with documented findings and plan of care. Patient was seen and examined. Objective - Vital Signs Vital signs: Vital Signs Temp 97.9 F 03/03/24 07:00 Pulse 56 L 03/03/24 07:00 Resp 16 03/03/24 07:00 BP 153/70 03/03/24 07:00 Pulse Ox 94 L 03/03/24 07:00 FiO2 Intake & Output 03/02/24 03/03/24 03/03/24 18:59 06:59 18:59 Intake Total 168 Balance 168 Intake: IV 50 Oral 118 Other: Voiding Method Toilet # Voids 1 1 - Labs CBC & Chem 7: 03/03/24 06:03 03/03/24 06:03 Labs: Abnormal Lab Results - Last 24 Hours (Table) 03/02/24 03/02/24 03/02/24 Range/Units 12:01 17:23 20:13 POC Glucose (mg/dL) 112 H 204 H 188 H (70-110) mg/dL
[2024-03-03 12:14] LABS: Glucose,Whole Blood 167 mg/dL (70-110)
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
[2024-03-03 17:24] LABS: Glucose,Whole Blood 119 mg/dL (70-110)
[2024-03-03] MEDS: ATORVASTATIN 20 MG TAB PO SCH (20:38)
[2024-03-03] MEDS: ALPRAZolam 0.5 MG TAB PO PRN (20:57)
[2024-03-03 21:00] LABS: Glucose,Whole Blood 164 mg/dL (70-110)
[2024-03-04] MEDS: ASPIRIN 325 MG TAB PO ONE (05:57)
[2024-03-04] MEDS: ATORVASTATIN 80 MG TAB PO ONE (05:57)
[2024-03-04 05:59] LABS: Glucose,Whole Blood 120 mg/dL (70-110)
[2024-03-04] MEDS ORDERED: HEPARIN SODIUM,PORCINE (1 ML) 2,500 UNIT in SODIUM CHLORIDE 0.9% 250 ML IRRIGATION PRN (07:00)
[2024-03-04] MEDS ORDERED: HEPARIN SODIUM,PORCINE 10,000 UNIT in SODIUM CHLORIDE 0.9% 1,000 ML IRRIGATION PRN (07:00)
--- NOTE | 2024-03-04 09:06 | US ---
EXAMINATION TYPE: US venous doppler duplex UE RT DATE OF EXAM: 03/04/2024 COMPARISON: NONE CLINICAL INDICATION: Male, 78 years old with history of redness, swelling and warmth after IV; Pt has Hx heart blockage with stents, on thinners, and DM. SIDE PERFORMED: Right Right Arm: Negative for DVT; ?Acute on chronic thrombosis in the cephalic at the wrist/area of recent IV site. Left Arm: NA IMPRESSION: Cephalic venous thrombus near the wrist area with acute on chronic thrombus suspected.
--- NOTE | 2024-03-04 11:22 | P.PN ---
Subjective Progress Note Date: 03/04/24 The patient is a pleasant 78-year-old gentleman who sees Dr. Hurtado on regular basis with a past medical history significant for CAD with a prior stenting including PCI of the left circumflex/OM in 2016 as well as hypertension and dyslipidemia and diabetes. The patient presented to the hospital complaining of chest discomfort. For the last few weeks he has been struggling with elevated blood pressure in spite of being compliant with the medications and compliant with low-sodium diet but last night he woke up from sleep complaining of chest discomfort. Discomfort was in the middle of the chest as a squeezing sensation with no radiation to the arms or neck or shoulders or back and with associated symptoms of shortness of breath. No sweating. No syncope. He decided to come to the emergency department. He was admitted and underwent a troponin came in to be unremarkable for ischemia and also EKG showed sinus mechanism with ST changes in the inferolateral leads seems to be the same as in 2022. Currently his chest pain-free but he is on nitro patch. He states sometimes that the chest discomfort is worse with taking a deep breath. He underwent an echo which is still pending. Examination is remarkable for stable vital signs with regular rate and rhythm and soft systolic murmur and clear breathing sounds bilaterally and no edema was noted and the abdomen is soft March 02, 2024 The patient was seen and evaluated this morning. He did have an episode of chest discomfort earlier this morning and has mild ongoing chest discomfort right now. The pressure appears to be under better control after we adjusted the medications yesterday and after adding hydrochlorothiazide to the current medical regimen and adding amlodipine. The pressure is still consistent with stage II hypertension instead of hypertension crisis with him going to add isosorbide mononitrate to the current medical regimen. Proceed with coronary angiogram as soon as possible. Examination is remarkable for elevated blood pressure with regular rate and rhythm and distant heart sounds and clear breathing sounds bilaterally and no edema was noted 03/03 Yesterday, patient underwent cardiac catheterization with Dr. Johns that revealed patent stent in the first obtuse marginal branch of the left circumflex, patent stent in the mid RCA. Intermediate disease involving the proximal RCA has not changed since 2019. Normal left-sided filling pressures. If patient continues to have chest pain, consider FFR of the RCA. Patient presently does not complain of any chest pain but he ambulated later in the morning and developed a burning type chest pain. EKG was repeated. Medication changes were made to address blood pressure fluctuations. Patient states that at home his blood pressure has been running 170s. 03/04 Patient is seen today in follow-up. He is scheduled for cardiac catheterization today with Dr. Johns who will be discussing the case with Dr. Hewitt. Blood pressure 128/80, heart rate 73, pulse ox 92. Patient has blood work that was obtained at [facility] which reveals LDL 78, HDL 41, total cholesterol 148 and triglycerides 146. Discussed in detail with the patient the need to drop the LDL and rosuvastatin will be increased at the time of discharge to 20 mg. Patient states after he walked yesterday he had the burning type discomfort in his chest but has not had any repeat. He has not been ambulating in the hallway this morning. Physical Examination Gen: This is a 78-year-old male in no acute distress LUNGS: Clear to auscultation. No wheezes or rhonchi. No intercostal retractions. HEART: Regular rate and rhythm. Distant heart sounds. No murmur. EXTREMITIES: No pedal edema. No calf tenderness. NEUROLOGICAL: Patient is awake, alert and oriented. Assessment Chest discomfort CAD with prior revascularization Multiple comorbid conditions including diabetes and hypertension and dyslip idemia Plan Continue the current medical regimen Continue patient on valsartan 160 mg twice daily Proceed with FFR and possible PCI of the RCA, scheduled for today with Dr. Johns Further recommendations pending patient's course Nurse practitioner note has been reviewed, I agree with documented findings and plan of care. Patient was seen and examined. Objective - Vital Signs Vital signs: Vital Signs Temp 98.0 F 03/04/24 07:28 Pulse 73 03/04/24 07:28 Resp 15 03/04/24 07:28 BP 128/80 03/04/24 07:28 Pulse Ox 92 L 03/04/24 07:28 FiO2 Intake & Output 03/03/24 03/04/24 03/04/24 18:59 06:59 18:59 Intake Total 472 Balance 472 Intake: Oral 472 Other: Voiding Method Toilet Toilet # Voids 2 2 - Labs CBC & Chem 7: 03/03/24 06:03 03/03/24 06:03 Labs: Abnormal Lab Results - Last 24 Hours (Table) 03/03/24 03/03/24 03/03/24 Range/Units 06:03 12:12 17:20 Anion Gap 13.30 H (4.00-12.00) mmol/L Glucose 121 H (70-110) mg/dL POC Glucose (mg/dL) 167 H 119 H (70-110) mg/dL Total Protein 6.1 L (6.2-8.2) g/dL 03/03/24 03/04/24 Range/Units 20:59 05:58 Anion Gap (4.00-12.00) mmol/L Glucose (70-110) mg/dL POC Glucose (mg/dL) 164 H 120 H (70-110) mg/dL Total Protein (6.2-8.2) g/dL
[2024-03-04] MEDS ORDERED: LIDOCAINE 1% INJ 10MG/ML (20 ML MDV) ONE (12:13)
[2024-03-04] MEDS ORDERED: HEPARIN SODIUM 1,000 UN/ML (10ML VL) ONE (12:17)
[2024-03-04] MEDS: IV FLUID CONTINUATION 1,000 ML IV ONE (12:30)
[2024-03-04] MEDS: MIDAZOLAM 2 MG/2 ML VIAL IVP ONE (12:40)
[2024-03-04] MEDS: LIDOCAINE 1% INJ 10MG/ML (20 ML MDV) SQ ONE (12:41)
[2024-03-04] MEDS: HEPARIN SODIUM 1,000 UN/ML (10ML VL) IV ONE (12:46)
[2024-03-04] MEDS: IOPAMIDOL-370 100ML BTL INJ ONE (13:15)
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
[2024-03-04] MEDS ORDERED: RX INFO: IV CONTRAST WAS GIVEN 1 EACH MISC MISCELLANE PRN (13:18)
--- NOTE | 2024-03-04 13:24 | P.PCN ---
Date of Procedure: 03/04/24 Operative Findings: IFR of the RCA Performing physician Spencer Johns MD Procedure performed IFR of the RCA Indication Symptomatic 78-year-old gentleman with intermediate to severe disease involving the RCA Approach Left common femoral artery Complication None Level of sedation Moderate with sedation length of 33 minutes Procedure description After obtaining informed consent the patient was brought to the cardiac Nursing Project Coordinator. The left common femoral artery was cannulated using micropuncture [employer] ue under ultrasound guidance and micropuncture wire passed easily then I placed a 6 [place] 11 cm sheath at the left common femoral artery. After that anticoagulation was initiated using heparin with continuous ACT monitoring. Subsequently after zeroing the Doppler wire and equalizing between the Doppler wire and guiding catheter which was JL 4 guiding catheter the RCA was engaged and subsequently wired using the Doppler wire. The IFR came in to be at 0.94. The procedure was completed with no complication by the end of the selective left common femoral artery angiogram. Finally we closed the groin using the Angio-Seal device. Good hemostasis was achieved Conclusion #1 intermediate disease involving the proximal to mid RCA documented to be nonflow limiting by Doppler wire Postprocedure management Continue aggressive cholesterol control and risk factors modification and follow-up with the patient
[2024-03-04] MEDS: ISOSORBIDE MONONITRATE ER 30 MG TAB.ER.24H PO SCH (14:25)
[2024-03-04] MEDS: SODIUM CHLORIDE 0.9% 1,000 ML IV SCH (14:25)
[2024-03-04 17:41] LABS: Glucose,Whole Blood 128 mg/dL (70-110)
[2024-03-04 20:17] LABS: Glucose,Whole Blood 168 mg/dL (70-110)
[2024-03-05 05:13] LABS: Glucose,Whole Blood 124 mg/dL (70-110)
[2024-03-05] MEDS: ACETAMINOPHEN TAB 325 MG TAB PO PRN (05:50)
[2024-03-05 08:04] VITALS: BP 115/55; PULSE 55; RESP 15; TEMP 97.4
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
[2024-03-05 10:13] VITALS: BMI 26.6
--- NOTE | 2024-03-05 13:00 | P.PN ---
Subjective Progress Note Date: 03/05/24 The patient is a pleasant 78-year-old gentleman who sees Dr. Hurtado on regular basis with a past medical history significant for CAD with a prior stenting including PCI of the left circumflex/OM in 2016 as well as hypertension and dyslipidemia and diabetes. The patient presented to the hospital complaining of chest discomfort. For the last few weeks he has been struggling with elevated blood pressure in spite of being compliant with the medications and compliant with low-sodium diet but last night he woke up from sleep complaining of chest discomfort. Discomfort was in the middle of the chest as a squeezing sensation with no radiation to the arms or neck or shoulders or back and with associated symptoms of shortness of breath. No sweating. No syncope. He decided to come to the emergency department. He was admitted and underwent a troponin came in to be unremarkable for ischemia and also EKG showed sinus mechanism with ST changes in the inferolateral leads seems to be the same as in 2022. Currently his chest pain-free but he is on nitro patch. He states sometimes that the chest discomfort is worse with taking a deep breath. He underwent an echo which is still pending. Examination is remarkable for stable vital signs with regular rate and rhythm and soft systolic murmur and clear breathing sounds bilaterally and no edema was noted and the abdomen is soft March 02, 2024 The patient was seen and evaluated this morning. He did have an episode of chest discomfort earlier this morning and has mild ongoing chest discomfort right now. The pressure appears to be under better control after we adjusted the medications yesterday and after adding hydrochlorothiazide to the current medical regimen and adding amlodipine. The pressure is still consistent with stage II hypertension instead of hypertension crisis with him going to add isosorbide mononitrate to the current medical regimen. Proceed with coronary angiogram as soon as possible. Examination is remarkable for elevated blood pressure with regular rate and rhythm and distant heart sounds and clear breathing sounds bilaterally and no edema was noted 03/03 Yesterday, patient underwent cardiac catheterization with Dr. Johns that revealed patent stent in the first obtuse marginal branch of the left circumflex, patent stent in the mid RCA. Intermediate disease involving the proximal RCA has not changed since 2019. Normal left-sided filling pressures. If patient continues to have chest pain, consider FFR of the RCA. Patient presently does not complain of any chest pain but he ambulated later in the morning and developed a burning type chest pain. EKG was repeated. Medication changes were made to address blood pressure fluctuations. Patient states that at home his blood pressure has been running 170s. 03/04 Patient is seen today in follow-up. He is scheduled for cardiac catheterization today with Dr. Johns who will be discussing the case with Dr. Hewitt. Blood pressure 128/80, heart rate 73, pulse ox 92. Patient has blood work that was obtained at [facility] which reveals LDL 78, HDL 41, total cholesterol 148 and triglycerides 146. Discussed in detail with the patient the need to drop the LDL and rosuvastatin will be increased at the time of discharge to 20 mg. Patient states after he walked yesterday he had the burning type discomfort in his chest but has not had any repeat. He has not been ambulating in the hallway this morning. 03/05 Yesterday, patient underwent IFR of the RCA with Dr. Johns which came back at 0.94 finding no flow-limiting stenosis. Patient was started on Imdur 30 mg daily. He denies having any chest pain at this time. No shortness of breath. Blood pressure 115/55, heart rate 55, pulse ox 95% on room air. Primary ordered venous duplex of the right upper extremity which revealed cephalic venous thrombosis near the wrist area with acute on chronic thrombus suspected. Physical Examination Gen: This is a 78-year-old male in no acute distress LUNGS: Clear to auscultation. No wheezes or rhonchi. No intercostal retractions. HEART: Regular rate and rhythm. Distant heart sounds. No murmur. EXTREMITIES: No pedal edema. No calf tenderness. NEUROLOGICAL: Patient is awake, alert and oriented. Assessment Chest discomfort, acute coronary syndrome ruled out CAD with prior revascularization Multiple comorbid conditions including diabetes and hypertension and dysli pidemia Plan Continue the current medical regimen Continue patient on valsartan 160 mg twice daily Patient is cleared from cardiology for discharge home and may follow-up with Dr. Hurtado in 1 week. Nurse practitioner note has been reviewed, I agree with documented findings and plan of care. Patient was seen and examined. Objective - Vital Signs Vital signs: Vital Signs Temp 97.4 F L 03/05/24 08:00 Pulse 55 L 03/05/24 08:00 Resp 15 03/05/24 08:00 BP 115/55 03/05/24 08:00 Pulse Ox 95 03/05/24 08:00 FiO2 Intake & Output 03/04/24 03/05/24 03/05/24 18:59 06:59 18:59 Intake Total 100 Balance 100 Intake: IV 100 Other: Voiding Method Toilet Toilet # Voids 2 - Labs CBC & Chem 7: 03/03/24 06:03 03/03/24 06:03 Labs: Abnormal Lab Results - Last 24 Hours (Table) 03/04/24 03/04/24 03/05/24 Range/Units 17:38 20:16 05:12 POC Glucose (mg/dL) 128 H 168 H 124 H (70-110) mg/dL
== END 2024-03-05 11:01 | disposition home or self-care (01) | DRG 287 ==
LOC: EC 07:33 → OBSVTOIN 11:06 → 6NMEDSUR 11:06
PROVIDERS: ADMIT Student in an Organized Health Care Education/Training Program; ATTEND Student in an Organized Health Care Education/Training Program
PROC: 4A023N7 Measurement of Cardiac Sampling and Pressure, Left Heart, Percutaneous Approach (ICD-10-PCS; principal; 2024-03-02 13:19)
PROC: B2111ZZ Fluoroscopy of Multiple Coronary Arteries using Low Osmolar Contrast (ICD-10-PCS; 2024-03-02 13:19)
PROC: 4A033BC Measurement of Arterial Pressure, Coronary, Percutaneous Approach (ICD-10-PCS; 2024-03-04 13:30)
DX: I25.110 Atherosclerotic heart disease of native coronary artery with unstable angina pectoris (principal); I82.711 Chronic embolism and thrombosis of superficial veins of right upper extremity; I82.611 Acute embolism and thrombosis of superficial veins of right upper extremity; E11.65 Type 2 diabetes mellitus with hyperglycemia; I11.9 Hypertensive heart disease without heart failure; E87.8 Other disorders of electrolyte and fluid balance, not elsewhere classified; E03.9 Hypothyroidism, unspecified; F32.A Depression, unspecified; E78.1 Pure hyperglyceridemia; K44.9 Diaphragmatic hernia without obstruction or gangrene; F41.9 Anxiety disorder, unspecified; G89.29 Other chronic pain; R00.1 Bradycardia, unspecified; N40.0 Benign prostatic hyperplasia without lower urinary tract symptoms; F43.10 Post-traumatic stress disorder, unspecified; Z95.5 Presence of coronary angioplasty implant and graft; I25.2 Old myocardial infarction; Z87.891 Personal history of nicotine dependence; Z79.82 Long term (current) use of aspirin; Z79.890 Hormone replacement therapy; Z79.899 Other long term (current) drug therapy; Z79.84 Long term (current) use of oral hypoglycemic drugs; Z88.8 Allergy status to other drugs, medicaments and biological substances; Z88.5 Allergy status to narcotic agent
CPT/HCPCS: 36415; 71046; 71275; 76937; 80053; 80061; 83036; 83735; 84484; 85025; 85027; 85379; 85610; 85730; 93005; 93306; 93454; 93458; 93799; 94760; 96360; 96361; 99285

== ENCOUNTER 2024-09-28 09:54 | Emergency (ER) | payer OTHER, MEDICARE ==
[2024-09-28 10:01] VITALS: TEMP 98.8
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
[2024-09-28] MEDS: SODIUM CHLORIDE 0.9% 1,000 ML IV STA (10:40)
--- NOTE | 2024-09-28 10:54 | XR ---
EXAMINATION TYPE: XR chest 2V DATE OF EXAM: 09/28/2024 10:48 AM COMPARISON: Prior chest x-ray February 29, 2024 and older studies CLINICAL INDICATION: Male, 79 years old with history of cough, TECHNIQUE: Frontal and lateral views of the chest are obtained. FINDINGS: Mild bibasilar linear scarring is redemonstrated There is no suspicious new focal air spac e opacity, pleural effusion, or pneumothorax seen. The cardiac silhouette size is stable and within normal limits. Persistent retrocardiac opacity consistent with moderate size hiatal hernia. The osse ous structures are intact. IMPRESSION: Chronic changes without new acute pulmonary infiltrate. [facility], , 09/28/2024 10:52 AM
[2024-09-28 11:12] LABS: Basophils % (A) 0 %; Eosinophils % (A) 0 %; HCT 52.2 % (39.0-53.0); HGB 17.2 gm/dL (13.0-17.5); Lymphocytes # (A) 0.5 k/uL (1.0-4.8); Lymphocytes % (A) 7 %; MCH 28.9 pg (25.0-35.0); MCHC 33.1 g/dL (31.0-37.0); MCV 87.4 fL (80.0-100.0); Mean Platelet Volume 8.1; Monocytes # (A) 0.5 k/uL (0-1.0); Monocytes % (A) 6 %; Neutrophils # (A) 6.9 k/uL (1.3-7.7); Neutrophils % (A) 85 %; Platelet Count 224 k/uL (150-450); RBC 5.97 m/uL (4.30-5.90); RDW 14.3 % (11.5-15.5); WBC 8.1 k/uL (3.8-10.6)
[2024-09-28 11:26] LABS: ALT 14 U/L (4-49); AST 23 U/L (17-59); African American GFR (CKD) 84 (>60 ml/min/1.73 sqM); Albumin 4.2 g/dL (3.5-5.0); Alkaline Phosphatase 105 U/L (38-126); Anion Gap 13 mmol/L; Blood Urea Nitrogen 15 mg/dL (9-20); Carbon Dioxide 23 mmol/L (22-30); Chloride 101 mmol/L (98-107); Glucose 176 mg/dL (74-99); Non-African American GFR(CKD) 72 (>60 ml/min/1.73 sqM); Potassium 4.3 mmol/L (3.5-5.1); Sodium 137 mmol/L (137-145); Total Bilirubin 0.7 mg/dL (0.2-1.3); Total Protein 7.1 g/dL (6.3-8.2)
[2024-09-28 11:59] VITALS: BP 128/79; PULSE 83; RESP 16
== END 2024-09-28 11:59 | disposition home or self-care (01) ==
LOC: EC 09:54 → SUPCPDRO 09:54 → EC 11:59
DX: U07.1 COVID-19 (principal); Z88.5 Allergy status to narcotic agent; Z88.8 Allergy status to other drugs, medicaments and biological substances; Z87.891 Personal history of nicotine dependence
CPT/HCPCS: 36415; 71046; 80053; 85025; 87636; 96360; 99285